=== PATIENT | female | born 1965 | race Hispanic/Latino ===

== ENCOUNTER 2019-10-07 06:50 | Emergency (ER) | payer OTHER, SELFPAY ==
[2019-10-07] MEDS ORDERED: FENTANYL CITR 100 MCG/2 ML ONE (07:38)
[2019-10-07 07:46] LABS: Absolute Lymphocytes (CBC) 1.7 K/uL (0.7-4.9); Basophils % 0.9 % (0-1.3); Hematocrit 41.5 % (36.0-45.0); Lymphocytes % 31.3 % (15.3-44.8); MPV 7.9 fL (7.6-11.3); RBC Red Blood Cell Count 4.84 M/uL (3.86-4.86)
[2019-10-07 07:50] LABS: Protime INR 1.02
[2019-10-07 07:59] LABS: ALT/SGPT 23 U/L (12-78); AST/SGOT 16 U/L (15-37); Albumin 3.6 g/dL (3.4-5.0); Alkaline Phosphatase 107 U/L (45-117); BUN Blood Urea Nitrogen 9 mg/dL (7-18); Bicarbonate 28 mmol/L (21-32); Bilirubin Direct < 0.1 mg/dL (0-0.2); Bilirubin Total 0.2 mg/dL (0.2-1.0); Glucose Level 95 mg/dL (74-106); Magnesium 2.3 mg/dL (1.8-2.4); NT PRO-BNP 58 pg/mL (<125); Potassium 4.1 mmol/L (3.5-5.1); Protein, Total 7.1 g/dL (6.4-8.2); Sodium Level 142 mmol/L (136-145); Troponin (Emerg Dept Use Only) < 0.02 ng/mL (0.0-0.045)
--- NOTE | 2019-10-07 08:41 | RAD REPORT ---
EXAM DESCRIPTION: CT - Chest For Pe Angio - 10/07/2019 8:21 am CLINICAL HISTORY: BLUNT CHEST TRAUMA, rib pain under the left breast COMPARISON: Abdomen Pelvis W Contrast dated 04/17/2017 TECHNIQUE: Dynamically enhanced 3 mm thick images of the chest were obtained during administration o f approximately 150mL Isovue 370 IV contrast. Coronal and oblique MIP reconstruction images were gene rated and reviewed. Exam utilizes a protocol to evaluate the pulmonary arterial tree. All CT scans are performed using dose optimization technique as appropriate and may include automated exposure control or mA/KV adjustment according to patient size. FINDINGS: No pulmonary emboli are identified. The aorta as imaged shows no acute or suspicious finding. No pericardial thickening or effusion. No infiltrate or mass in the lung parenchyma. No pleural effusion or pleural thickening. No mediastinal or hilar suspicious masses. No chest wall masses or abnormal axillary lymphadenopathy. Patient has prominent costochondral calcifications. There is a subtle buckling of the cortex of the l eft sixth rib at the costochondral junction. This is a change in contour from the March 2017 CT study. No fracture line is seen but this could be an acute or chronic rib injury. Correlation is needed with any focal symptoms. IMPRESSION: Suspected incomplete fracture of the anterior left sixth rib at the costochondral juncti on. Imaging shows subtle buckling of the cortex of this rib new from 2017. No other rib or chest wall finding identifiable. Pleura, parenchyma and mediastinal structures without acute finding. No other significant or suspicious findings.
--- NOTE | 2019-10-07 08:57 | ER ---
Nurse's Notes [facility] Name: Dahiana Palafox Age: 53 yrs Sex: Female : 1965 Arrival Date: 10/07/2019 Time: 06:53 Bed 5 Private MD: Diagnosis: Fracture of one rib, left side- 6th;Shortness of breath Presentation: 10/07 07:11 Presenting complaint: Patient states: pain under L breast that occurred during a democrat ss after her squeezed her. states that this has occurred before and was told her rib popped out of place, but it healed itself. This time the pain is not going away. Pain is worse when laughing, repositioning and deep breathing. Transition of care: patient was not received from another setting of care. Onset of symptoms was September 23, 2019. Risk Assessment: Do you want to hurt yourself or someone else? Patient reports no desire to harm self or others. Initial Sepsis Screen: Does the patient meet any 2 criteria? No. Patient's initial sepsis screen is negative. Does the patient have a suspected source of infection? No. Patient's initial sepsis screen is negative. Care prior to arrival: None. 07:11 Method Of Arrival: Ambulatory ss 07:11 Acuity: VIVIANA 3 ss Historical: - Allergies: 07:36 No Known Allergies; ss - PMHx: 07:00 acid reflux; gastric ulcers; Hyperlipidemia; Hypertension; ss - PSHx: 07:00 Hysterectomy; metal plate in head; ss - Immunization history:: Adult Immunizations up to date. - Social history:: Smoking status: Patient/guardian denies using tobacco. - Ebola Screening: : Patient denies exposure to infectious person Patient denies travel to an Ebola-affected area in the 21 days before illness onset. Screenin:18 Abuse screen: Denies threats or abuse. Denies injuries from another. Nutritional ss screening: No deficits noted. Tuberculosis screening: Never had TB. Fall Risk None identified. Assessment: 07:18 General: Appears uncomfortable, Behavior is calm, cooperative. Pain: Complains of pain ss in left lateral anterior chest Pain currently is 8 out of 10 on a pain scale. Quality of pain is described as tender, Pain began x 2 weeks Is continuous. Neuro: Level of Consciousness is awake, alert, obeys commands, Oriented to person, place, time, situation, Pupils are PERRLA. Cardiovascular: Capillary refill < 3 seconds is brisk in bilateral fingers Patient's skin is warm and dry. Rhythm is regular. Cardiovascular: Pulses are palpable in right radial artery and left radial artery Edema is absent. Respiratory: Reports cough that is pain with cough pain with movement pain with respiration Airway is patent Trachea midline Respiratory effort is even, unlabored, Respiratory pattern is regular, symmetrical, Breath sounds are clear bilaterally. Crepitus is absent. GI: Patient currently denies abdominal pain, diarrhea, nausea, vomiting. : No signs and/or symptoms were reported regarding the genitourinary system. EENT: Nares are clear Oral mucosa is moist. Throat is clear. Derm: Skin is intact, is healthy with good turgor, Skin is dry, Skin is pink, warm \T\ dry. normal. Musculoskeletal: Circulation, motion, and sensation intact. Range of motion: intact in all extremities, Swelling absent. 07:45 Reassessment: NAD, remains at bedside. Call light within reach. 08:06 Reassessment: labs have resulted. Awaiting CT to be obtained. Spoke with Althea library cataloging technician who reports she is on her way now to transport patient to have image obtained. Neuro: Level of Consciousness is awake, obeys commands. Respiratory: Airway is patent Respiratory effort is even, unlabored, Respiratory pattern is regular, symmetrical. 09:34 Reassessment: Patient appears in no apparent distress at this time. Patient is alert, ss oriented x 3, equal unlabored respirations, skin warm/dry/pink. Instructed patient and family on IS device use. Vital Signs: 07:10 BP 125 / 75; Pulse 86; Resp 16; Temp 97.7(TE); Pulse Ox 100% on R/A; Weight 63.05 kg; ss Height 5 ft. 2 in. (157.48 cm); Pain 8/10; 07:10 Body Mass Index 25.42 (63.05 kg, 157.48 cm) ED Course: 06:53 Patient arrived in ED. ds1 07:10 Arm band placed on right wrist. ss 07:11 Rupal Chacon FNP-C is PSYCHIATRICP. snw 07:11 Benjamin Serrano MD is Attending Physician. snw 07:16 Triage completed. ss 07:18 Val Muñiz, RN is Primary Nurse. ss 07:18 Patient has correct armband on for positive identification. Bed in low position. Call ss light in reach. 07:20 Pulse ox on. NIBP on. ss 07:20 Patient maintains SpO2 saturation greater than 95% on room air. ss 07:35 Inserted saline lock: 22 gauge in right antecubital area, using aseptic technique. ss Blood collected. 07:53 EKG done, by technician automated equipment. reviewed by Rupal DEJESUS. 3 08:22 CT Chest For PE Angio In Process Unspecified. EDMS 09:28 No provider procedures requiring assistance completed. IV discontinued, intact, ss bleeding controlled, No redness/swelling at site. Pressure dressing applied. Administered Medications: 07:45 Drug: fentaNYL (PF) 50 mcg Route: IVP; Site: right antecubital; ss 08:05 Follow up: Response: No adverse reaction; Pain is decreased; Pain is decreased, patient ss reports pain medication seems to have helped a little. 09:20 Drug: Valium 5 mg Route: PO; ss 09:26 Follow up: Response: No adverse reaction; Medication administered at discharge. ss 09:20 Drug: TORadol - Ketorolac 15 mg Route: IVP; Site: right antecubital; ss 09:27 Follow up: Response: No adverse reaction; Medication administered at discharge. Outcome: 08:56 Discharge ordered by MD. snw 09:28 Discharged to home ambulatory, with family. ss 09:28 Condition: good 09:28 Discharge instructions given to patient, family, Instructed on discharge instructions, follow up and referral plans. no driving heavy equipment, IS Demonstrated understanding of instructions, follow-up care, medications, Prescriptions given X 1. 09:34 Patient left the ED. Signatures: Dispatcher [employer] EDNC Rupal Chacon FNP-C ANGIO TECHNOLOGIST-Csnkatherine Betsey Sullivan ds1 Val Muñiz, NOEL RN Lilo Hawthorne 3 Corrections: (The following items were deleted from the chart) 07:26 07:11 Acuity: VIVIANA 4 ss ss 07:49 07:18 Respiratory: Airway is patent Trachea midline Respiratory effort is even, ss unlabored, Respiratory pattern is regular, symmetrical, Breath sounds are clear bilaterally. Crepitus is absent ss
--- NOTE | 2019-10-07 08:57 | EDPHYS ---
Physician Documentation [facility] Name: Dahiana Palafox Age: 53 yrs Sex: Female : 1965 Arrival Date: 10/07/2019 Time: 06:53 Bed 5 Private MD: ED Physician Benjamin Serrano HPI: 10/07 08:00 This 53 yrs old Female presents to ER via Ambulatory with complaints of snw Breathing Difficulty. 08:00 The patient has shortness of breath at rest. Onset: The symptoms/episode began/occurred snw suddenly, 4 day(s) ago, and became worse and became persistent. Duration: The symptoms are continuous, and are steadily getting worse. The patient's shortness of breath is aggravated by coughing, light activity, deep breath. Associated signs and symptoms: Pertinent positives: numbness in extremities, to left upper arm/shoulder. Severity of symptoms: At their worst the symptoms were moderate. The patient has not experienced similar symptoms in the past. The patient has not recently seen a physician. Pt states she felt and heard a pop under her left breast when Spouse gave her a "bear hug", + shortness of breath/pain since. + smoker. Historical: - Allergies: 07:36 No Known Allergies; ss - PMHx: 07:00 acid reflux; gastric ulcers; Hyperlipidemia; Hypertension; ss - PSHx: 07:00 Hysterectomy; metal plate in head; ss - Immunization history:: Adult Immunizations up to date. - Social history:: Smoking status: Patient/guardian denies using tobacco. - Ebola Screening: : Patient denies exposure to infectious person Patient denies travel to an Ebola-affected area in the 21 days before illness onset. ROS: 07:59 Constitutional: Negative for fever, chills, and weight loss, Eyes: Negative for injury, snw pain, redness, and discharge, ENT: Negative for injury, pain, and discharge, Neck: Negative for injury, pain, and swelling, Cardiovascular: Negative for chest pain, palpitations, and edema, Abdomen/GI: Negative for abdominal pain, nausea, vomiting, diarrhea, and constipation, Back: Negative for injury and pain, : Negative for injury, bleeding, discharge, and swelling, MS/Extremity: Negative for injury and deformity, Skin: Negative for injury, rash, and discoloration, Neuro: Negative for headache, weakness, numbness, tingling, and seizure. 07:59 Respiratory: Positive for pleurisy, of the under left breast, shortness of breath, at rest. Exam: 07:59 Constitutional: This is a well developed, well nourished patient who is awake, alert, snw and in no acute distress. Head/Face: Normocephalic, atraumatic. Eyes: Pupils equal round and reactive to light, extra-ocular motions intact. Lids and lashes normal. Conjunctiva and sclera are non-icteric and not injected. Cornea within normal limits. Periorbital areas with no swelling, redness, or edema. ENT: Nares patent. No nasal discharge, no septal abnormalities noted. Tympanic membranes are normal and external auditory canals are clear. Oropharynx with no redness, swelling, or masses, exudates, or evidence of obstruction, uvula midline. Mucous membranes moist. Neck: Trachea midline, no thyromegaly or masses palpated, and no cervical lymphadenopathy. Supple, full range of motion without nuchal rigidity, or vertebral point tenderness. No Meningismus. Cardiovascular: Regular rate and rhythm with a normal S1 and S2. No gallops, murmurs, or rubs. Normal PMI, no JVD. No pulse deficits. Respiratory: Lungs have equal breath sounds bilaterally, clear to auscultation and percussion. No rales, rhonchi or wheezes noted. No increased work of breathing, no retractions or nasal flaring. Abdomen/GI: Soft, non-tender, with normal bowel sounds. No distension or tympany. No guarding or rebound. No evidence of tenderness throughout. Back: No spinal tenderness. No costovertebral tenderness. Full range of motion. Skin: Warm, dry with normal turgor. Normal color with no rashes, no lesions, and no evidence of cellulitis. MS/ Extremity: Pulses equal, no cyanosis. Neurovascular intact. Full, normal range of motion. Neuro: Awake and alert, GCS 15, oriented to person, place, time, and situation. Cranial nerves II-XII grossly intact. Motor strength 5/5 in all extremities. Sensory grossly intact. Cerebellar exam normal. Normal gait. Psych: Awake, alert, with orientation to person, place and time. Behavior, mood, and affect are within normal limits. 07:59 Chest/axilla: Inspection: normal, Palpation: tenderness, that is moderate, of the left breast, that partially reproduces the patient's complaints. Vital Signs: 07:10 BP 125 / 75; Pulse 86; Resp 16; Temp 97.7(TE); Pulse Ox 100% on R/A; Weight 63.05 kg; ss Height 5 ft. 2 in. (157.48 cm); Pain 8/10; 07:10 Body Mass Index 25.42 (63.05 kg, 157.48 cm) ss MDM: 07:12 Patient medically screened. snw 08:59 Data reviewed: vital signs, nurses notes. Counseling: I had a detailed discussion with snw the patient and/or guardian regarding: the historical points, exam findings, and any diagnostic results supporting the discharge/admit diagnosis, lab results, radiology results, the need for outpatient follow up, to return to the emergency department if symptoms worsen or persist or if there are any questions or concerns that arise at home. 10/07 07:25 Order name: Basic Metabolic Panel; Complete Time: 08:02 snw 10/07 07:25 Order name: CBC with Diff; Complete Time: 07:51 snw 10/07 07:25 Order name: LFT's; Complete Time: 08:02 snw 10/07 07:25 Order name: Magnesium; Complete Time: 08:02 snw 10/07 07:25 Order name: NT PRO-BNP; Complete Time: 08:02 snw 10/07 07:25 Order name: PT-INR; Complete Time: 07:55 snw 10/07 07:25 Order name: Troponin (emerg Dept Use Only); Complete Time: 08:02 snw 10/07 07:25 Order name: EKG; Complete Time: 07:26 snw 10/07 07:25 Order name: Cardiac monitoring; Complete Time: 07:45 snw 10/07 07:25 Order name: CT Chest For PE Angio; Complete Time: 08:54 snw 10/07 08:55 Order name: INCENTIVE SPIROMETRY snw 10/07 07:25 Order name: EKG - Nurse/Tech; Complete Time: 07:45 snw 10/07 07:25 Order name: IV Saline Lock; Complete Time: 07:35 snw 10/07 07:25 Order name: Labs collected and sent; Complete Time: 07:35 snw 10/07 07:25 Order name: O2 Per Protocol; Complete Time: 07:35 snw 10/07 07:25 Order name: O2 Sat Monitoring; Complete Time: 07:35 snw Administered Medications: 07:45 Drug: fentaNYL (PF) 50 mcg Route: IVP; Site: right antecubital; ss 08:05 Follow up: Response: No adverse reaction; Pain is decreased; Pain is decreased, patient ss reports pain medication seems to have helped a little. 09:20 Drug: Valium 5 mg Route: PO; ss 09:26 Follow up: Response: No adverse reaction; Medication administered at discharge. ss 09:20 Drug: TORadol - Ketorolac 15 mg Route: IVP; Site: right antecubital; ss 09:27 Follow up: Response: No adverse reaction; Medication administered at discharge. ss Disposition: 10/07/19 08:56 Discharged to Home. Impression: Fracture of one rib, left side - 6th, Shortness of breath. - Condition is Stable. - Discharge Instructions: Rib Fracture, Shortness of Breath, Incentive Spirometer, Heat Therapy. - Prescriptions for Valium 2 mg Oral Tablet - take 1 tablet by ORAL route every 8 hours As needed; 10 tablet. - Medication Reconciliation Form, Thank You Letter, Antibiotic Education, Prescription Opioid Use, Work release form form. - Follow up: Private Physician; When: 2 - 3 days; Reason: Recheck today's complaints, Continuance of care, Re-evaluation by your physician. Follow up: Emergency Department; When: As needed; Reason: Worsening of condition. Signatures: Dispatcher [employer] EDRupal Samaniego, OLEG CHRISTIAN-Val Latif, RN RN ss Corrections: (The following items were deleted from the chart) 09:34 08:56 10/07/2019 08:56 Discharged to Home. Impression: Fracture of one rib, left side - ss 6th; Shortness of breath. Condition is Stable. Forms are Medication Reconciliation Form, Thank You Letter, Antibiotic Education, Prescription Opioid Use. Follow up: Private Physician; When: 2 - 3 days; Reason: Recheck today's complaints, Continuance of care, Re-evaluation by your physician. Follow up: Emergency Department; When: As needed; Reason: Worsening of condition. snw
[2019-10-07] MEDS ORDERED: KETOROLAC 30 MG/ML INJ ONE (09:16)
[2019-10-07] MEDS ORDERED: DIAZEPAM 5 MG TABLET ONE (09:16)
[2019-10-07 09:41] VITALS: BP 125/75; TEMP 97.7; O2SAT 100
--- NOTE | 2019-10-09 12:52 | EKG ---
Test Date: 2019-10-07 Test Time: 07:47:21 [employer] Transactions Attorney: NANCY MEASUREMENT RESULTS: Intervals: Rate: 75 IL: 136 QRSD: 78 QT: 394 QTc: 439 [place]: P: 63 IL: 136 QRS: 63 T: 60 INTERPRETIVE STATEMENTS: Normal sinus rhythm Normal ECG Compared to ECG 01/04/2018 19:51:40 No significant changes Electronically Signed On 10-09-19 12:46:00 PROGRAM MANAGEMENT PROFESSIONAL by Demian Pisano
== END 2019-10-07 09:34 | disposition home or self-care (01) ==
LOC: ER 06:50
DX: S22.32XA Fracture of one rib, left side, initial encounter for closed fracture (principal); I10 Essential (primary) hypertension; X58.XXXA Exposure to other specified factors, initial encounter; Y93.89 Activity, other specified; Y92.9 Unspecified place or not applicable
CPT/HCPCS: 36415; 71275; 80048; 80076; 83735; 83880; 84484; 85025; 85610; 93005; 96374; 96375; 99284; J3010; Q9967

== ENCOUNTER 2020-03-14 09:12 | Emergency (ER) | payer BC, SELFPAY ==
--- NOTE | 2020-03-14 11:11 | RAD REPORT ---
EXAM DESCRIPTION: RAD - Chest Single View - 03/14/2020 10:11 am CLINICAL HISTORY: cough, fall, chest pain COMPARISON: Two view chest December 2017, CT chest September 2019 TECHNIQUE: AP portable chest image was obtained 03/14/2020 10:11 am . FINDINGS: No pulmonary contusion, mass, infiltrate or focal lung parenchymal process. Interstitial m arkings are relatively prominent but not clearly different from comparison. Heart and vasculature are normal. No measurable pleural effusion and no pneumothorax. No displaced rib fracture is identifiabl e. No acute rib finding seen. Rib detail is limited on a single view examination. Left shoulder shows no suspicious finding. Clavicle is intact and normally position. No acute aortic findings suspected. IMPRESSION: No acute cardiopulmonary process. No rib deformity identifiable on this study. Rib detail is limited on a single-view portable exam. No significant changes are identifiable from prior imaging.
[2020-03-14] MEDS ORDERED: DIAZEPAM 5 MG TABLET ONE (11:43)
--- NOTE | 2020-03-14 11:53 | ER ---
Nurse's Notes [facility] Name: Dahiana Palafox Age: 54 yrs Sex: Female : 1965 Arrival Date: 03/14/2020 Time: 09:13 Bed 6 Private MD: Rosanna Reynoso Diagnosis: Chest Wall Strain;Acute Bronchitis Presentation: 03/14 09:23 Chief complaint: Patient states: Thursday she was on the trampoline with her son and he sv pulled her left arm and she felt a "pop" in her left chest wall area and has been having SOB. Pt also reports cough/congestion x 3.5 weeks. Denies fever/chills. Coronavirus screen: Surgical mask placed on patient. Patient moved to private room, placed in contact and droplet isolation with eye protection until further assessment. Patient reports a cough. Patient reports shortness of breath or difficulty breathing. Patient denies measured and/or subjective temperature greater than 100.4F prior to today's visit. Patient denies travel on a cruise ship or to a country the [facility] currently lists as an affected area. Patient denies contact with known and/or suspected case of COVID-19. Ebola Screen: No symptoms or risks identified at this time. Risk Assessment: Do you want to hurt yourself or someone else? Patient reports no desire to harm self or others. Onset of symptoms was March 11, 2020. Care prior to arrival: Medication(s) given: Aleve 2 tabs taken at 0700 today. 09:23 Method Of Arrival: Ambulatory sv 09:23 Acuity: VIVIANA 4 sv 09:57 Initial Sepsis Screen: Does the patient meet any 2 criteria? No. Patient's initial sv sepsis screen is negative. Does the patient have a suspected source of infection? No. Patient's initial sepsis screen is negative. Triage Assessment: 09:23 General: Appears in no apparent distress. uncomfortable, well developed, Behavior is sv calm, cooperative, appropriate for age. Pain: Complains of pain in anterior aspect of left upper chest Pain currently is 9 out of 10 on a pain scale. Pain began 2-3 days ago. Is intermittent. Neuro: Level of Consciousness is awake, alert, obeys commands, Oriented to person, place, time, situation, Moves all extremities. Full function Gait is steady. Respiratory: Airway is patent Respiratory effort is even, unlabored, Respiratory pattern is regular, symmetrical. Derm: Skin is pink, warm \\T\\ dry. PSYCHIATRIC RN: 09:28 LMP N/A - Hysterectomy sv Historical: - Allergies: 09: Codeine; sv - PMHx: : acid reflux; gastric ulcers; Hyperlipidemia; Hypertension; Thyroid problem; GERD; sv - PSHx: 09:26 Hysterectomy; metal plate in head; sv - Immunization history:: Adult Immunizations up to date. - Social history:: Smoking status: Patient reports the use of cigarette tobacco products, smokes one-half pack cigarettes per day, Patient/guardian denies using alcohol. Screenin:27 Abuse screen: Denies threats or abuse. Denies injuries from another. Nutritional sv screening: No deficits noted. Tuberculosis screening: No symptoms or risk factors identified. Fall Risk None identified. Assessment: 11:20 Reassessment: request something for pain, provider notified. em Vital Signs: 09:23 Weight 61.23 kg; Height 5 ft. 1 in. (154.94 cm); Pain 9/10; sv 09:31 BP 144 / 77; Pulse 86; Resp 20; Pulse Ox 98% ; sv 09:34 BP 144 / 77; Pulse 85; Resp 18; Temp 98.3(O); Pulse Ox 98% on R/A; Pain 9/10; em1 09:23 Body Mass Index 25.51 (61.23 kg, 154.94 cm) sv ED Course: 09:13 Patient arrived in ED. am2 09:14 Rosanna Reynoso is Private Physician. am2 09:15 Zuly Lorenzo, NOEL is Primary Nurse. sv 09:15 Clyde Swenson PA is PHCP. jmm 09:15 Sixto Matute MD is Attending Physician. jmm 09:26 Triage completed. sv 09:27 Arm band placed on Patient placed in an exam room, on a stretcher. sv 09:27 Patient has correct armband on for positive identification. Bed in low position. Call sv light in reach. Pulse ox on. NIBP on. Door closed. Head of bed elevated. 09:28 Patient maintains SpO2 saturation greater than 95% on room air. sv 09:50 Nurse Practitioner and/or Physician Emergency Medical Service Manager to see patient. sv 09:57 Awaiting for x-ray. sv 10:03 X-ray(s) taken. sv 10:06 Awaiting radiology results. sv 10:11 Chest Single View XRAY In Process Unspecified. EDMS 10:17 Primary Nurse role handed off by Zuly Lorenzo, NOEL 10:33 Kiara Moreira, RN is Primary Nurse. ph 11:49 Sling applied to left arm. em 11:51 Inocente Bernal MD is Referral Physician. [facility] 12:02 No provider procedures requiring assistance completed. Patient did not have IV access em during this emergency room visit. Administered Medications: 11:32 Not Given (allergy): [place] 5 mg-325 mg 1 tabs PO once; RASS on ADMIN: Combtv4, Very jmm Agttd3, Agttd2, Rstlss1, AlertClm0, Drwsy-1, Lt Sdtn-2, Mod Sdtn-3, Dp Sdtn-4, UnArsble-5 11:40 Drug: Valium 5 mg Route: PO; em 12:03 Follow up: Response: No adverse reaction em Outcome: 11:52 Discharge ordered by MD. [facility] 12:02 Discharged to home ambulatory. em 12:02 Condition: good 12:02 Discharge instructions given to patient, Instructed on discharge instructions, follow up and referral plans. medication usage, Demonstrated understanding of instructions, follow-up care, medications, Prescriptions given X 2. 12:03 Patient left the ED. em Signatures: Dispatcher [employer] EDMS Zuly Lorenzo RN RN Clyde Swenson PA PA jmm Munoz, Edgar RN NOEL Darrel Cortez em1 Kiara Moreira, NOEL RN [facility] [id number]
--- NOTE | 2020-03-14 11:53 | EDPHYS ---
Physician Documentation [facility] Name: Dahiana Palafox Age: 54 yrs Sex: Female : 1965 Arrival Date: 03/14/2020 Time: 09:13 Bed 6 Private MD: Rosanna Reynoso ED Physician Sixto Matute HPI: 03/14 10:28 This 54 yrs old Female presents to ER via Ambulatory with complaints of Chest jmm Pain - due to injury/pull. 10:28 The patient or guardian reports chest pain that is located primarily in the anterior [facility] chest wall, left. Onset: acutely, 3 day(s) ago. The pain does not radiate. Associated signs and symptoms: Pertinent positives: cough. The chest pain is described as sharp. This is a 54 year old female with a history of hlp, htn that presents to the ED with complaints of left sided chest pain beginning this past Thursday. Patient states her son pulled her arm while on the trampoline and the patient heard a pop. Patient states pain was minimal until this morning. Worsened with left arm movement. Patient also complains of 3 weeks of productive cough. Denies fever. had similar symptoms but tested negative for COVID-19. . 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 - Social history:: Smoking status: Patient reports the use of cigarette tobacco products, smokes one-half pack cigarettes per day, Patient/guardian denies using alcohol. ROS: 10:41 Constitutional: Negative for fever, chills, and weight loss. jmm 10:41 Cardiovascular: Positive for chest pain. 10:41 Respiratory: Positive for cough. 10:41 All other systems are negative. Exam: 10:41 Constitutional: This is a well developed, well nourished patient who is awake, alert, jmm and in no acute distress. Head/Face: atraumatic. Eyes: EOMI, no conjunctival erythema appreciated ENT: Moist Mucus Membranes Neck: Trachea midline, Supple 10:41 Cardiovascular: Regular rate and rhythm. No edema appreciated Respiratory: Normal respirations, no respiratory distress appreciated Abdomen/GI: Non distended, soft Back: Normal ROM Skin: General appearance color normal MS/ Extremity: Moves all extremities, no obvious deformities appreciated, no edema noted to the lower extremities Neuro: Awake and alert, normal gait Psych: Behavior is normal, Mood is normal, Patient is cooperative and pleasant 10:41 Chest/axilla: Inspection: normal, Palpation: tenderness, of the anterior aspect of left upper chest, that totally reproduces the patient's complaints. Vital Signs: 09:23 Weight 61.23 kg; Height 5 ft. 1 in. (154.94 cm); Pain 9/10; sv 09:31 BP 144 / 77; Pulse 86; Resp 20; Pulse Ox 98% ; sv 09:34 BP 144 / 77; Pulse 85; Resp 18; Temp 98.3(O); Pulse Ox 98% on R/A; Pain 9/10; em1 09:23 Body Mass Index 25.51 (61.23 kg, 154.94 cm) sv MDM: 09:24 Patient medically screened. [facility] 11:50 Data reviewed: vital signs, nurses notes. Counseling: I had a detailed discussion with [facility] the patient and/or guardian regarding: the historical points, exam findings, and any diagnostic results supporting the discharge/admit diagnosis, radiology results, the need for outpatient follow up, to return to the emergency department if symptoms worsen or persist or if there are any questions or concerns that arise at home. ED course: Most likely chest wall injury due to PE findings. CXR does not appear consistent with viral pneumonia. Patient advised to follow up with orthopedics for further evaluation. Patient understood and agrees with the plan of care. . 03/14 09:54 Order name: Chest Single View XRAY; Complete Time: 11:21 [facility] 03/14 11:33 Order name: Sling; Complete Time: 11:35 [facility] Administered Medications: 11:32 Not Given (allergy): [place] 5 mg-325 mg 1 tabs PO once; RASS on ADMIN: Combtv4, Very jmm Agttd3, Agttd2, Rstlss1, AlertClm0, Drwsy-1, Lt Sdtn-2, Mod Sdtn-3, Dp Sdtn-4, UnArsble-5 11:40 Drug: Valium 5 mg Route: PO; em 12:03 Follow up: Response: No adverse reaction em Disposition: 03/15 07:16 Co-signature as Attending Physician, Sixto Matute MD Available for consultation . ps1 Disposition: 03/14/20 11:52 Discharged to Home. Impression: Chest Wall Strain, Acute Bronchitis. - Condition is Stable. - Prescriptions for orphenadrine citrate 100 mg Oral Tablet Sustained Release - take 1 tablet by ORAL route 2 times per day As needed; 20 tablet. Albuterol Sulfate 90 mcg/actuation - inhale 1-2 puff by INHALATION route every 4-6 hours; 1 Inhaler. - Medication Reconciliation Form, Thank You Letter, Antibiotic Education, Prescription Opioid Use, Work release form form. - Follow up: Inocente Bernal MD; When: 2 - 3 days; Reason: Recheck today's complaints, Continuance of care, Re-evaluation by your physician. Signatures: Dispatcher [employer] Zuly Moreno RN RN sv Mickail, Joel, PA PA jmm Munoz, Edgar, RN RN em Singer, Phillip, MD MD ps1 Corrections: (The following items were deleted from the chart) 03/14 12:03 11:52 03/14/2020 11:52 Discharged to Home. Impression: Chest Wall Strain; Acute em Bronchitis. Condition is Stable. Forms are Medication Reconciliation Form, Thank You Letter, Antibiotic Education, Prescription Opioid Use. Follow up: Inocente Bernal; When: 2 - 3 days; Reason: Recheck today's complaints, Continuance of care, Re-evaluation by your physician. jose
[2020-03-14 12:25] VITALS: BP 144/77; O2SAT 98
[2020-03-14 12:27] VITALS: TEMP 98.3
== END 2020-03-14 12:03 | disposition home or self-care (01) ==
LOC: ER 09:12
DX: S29.011A Strain of muscle and tendon of front wall of thorax, initial encounter (principal); X58.XXXA Exposure to other specified factors, initial encounter; J20.9 Acute bronchitis, unspecified; F17.210 Nicotine dependence, cigarettes, uncomplicated
CPT/HCPCS: 71045; 99284

== ENCOUNTER 2020-07-26 02:34 | Observation (INO) | payer BC ==
[2020-07-26] MEDS ORDERED: NA CHLORIDE 0.9% 1,000 ML ONE ×2 (03:01→05:56)
[2020-07-26] MEDS ORDERED: ONDANSETRON 4 MG/2 ML VIAL ONE (03:15)
[2020-07-26] MEDS ORDERED: FAMOTIDINE 20 MG/2 ML VIAL IV ONE (03:15)
[2020-07-26] MEDS ORDERED: MORPHINE 4 MG/ML SYR ONE ×2 (03:15→06:18)
[2020-07-26 03:47] LABS: Absolute Lymphocytes (CBC) 2.7 K/uL (0.7-4.9); Basophils % 0.4 % (0-1.3); Hematocrit 42.5 % (36.0-45.0); Lymphocytes % 33.4 % (15.3-44.8); MPV 8.2 fL (7.6-11.3); RBC Red Blood Cell Count 5.02 M/uL (3.86-4.86)
[2020-07-26 03:58] LABS: ALT/SGPT 37 U/L (12-78); AST/SGOT 42 U/L (15-37); Albumin 3.8 g/dL (3.4-5.0); Alkaline Phosphatase 137 U/L (45-117); BUN Blood Urea Nitrogen 11 mg/dL (7-18); Bicarbonate 25 mmol/L (21-32); Bilirubin Direct < 0.1 mg/dL (0-0.2); Bilirubin Total 0.2 mg/dL (0.2-1.0); Glucose Level 108 mg/dL (74-106); Lipase 219 U/L (73-393); Potassium 3.6 mmol/L (3.5-5.1); Sodium Level 140 mmol/L (136-145)
[2020-07-26] MEDS ORDERED: PIPER/TAZO/NS 3.375gm 3.375 GM/100 ML BAG ONE (05:56)
[2020-07-26 06:04] LABS: Urine Blood TRACE (NEG); Urine Glucose NEGATIVE (NEG); Urine Protein NEGATIVE (NEG)
--- NOTE | 2020-07-26 06:15 | ER ---
Nurse's Notes [facility] Name: Dahiana Palafox Age: 54 yrs Sex: Female : 1965 Arrival Date: 07/26/2020 Time: 02:38 Bed 18 Private MD: Diagnosis: Acute Cholecystitis Presentation: 07/26 02:38 Chief complaint: EMS states: SUDDEN ONSET OF ABDOMINAL PAIN DESCRIBED SHARP AND rv BURNING, RADIATING TO BOTH ARMS. DENIES NAUSEA/VOMITING/DIARRHEA/CONSTIPATION. NORMAL MOVEMENT EARLIER TODAY. Coronavirus screen: Client denies travel out of the [place] in the last 14 days. At this time, the client does not indicate any symptoms associated with coronavirus-19. Ebola Screen: No symptoms or risks identified at this time. Initial Sepsis Screen: Does the patient meet any 2 criteria? No. Patient's initial sepsis screen is negative. Does the patient have a suspected source of infection? Yes: Acute abdominal pain. Risk Assessment: Do you want to hurt yourself or someone else? Patient reports no desire to harm self or others. Onset of symptoms was July 26, 2020 at 01:00. 02:38 Method Of Arrival: EMS: [facility] rv 02:38 Acuity: VIVIANA 3 rv Triage Assessment: 02:41 General: Appears uncomfortable, Behavior is crying. Pain: Complains of pain in abdomen rv Pain radiates to right arm and left arm Pain currently is 10 out of 10 on a pain scale. Pain began suddenly, 1 hour ago. EENT: No signs and/or symptoms were reported regarding the EENT system. Neuro: Level of Consciousness is awake, alert, obeys commands, Oriented to person, place, time, situation. Cardiovascular: Patient's skin is warm and dry. Respiratory: Airway is patent Respiratory effort is even, unlabored, Respiratory pattern is regular, symmetrical. GI: Reports lower abdominal pain, upper abdominal pain, Patient currently denies constipation, diarrhea, nausea, vomiting. Derm: Skin is healthy with good turgor. 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 - Social history:: Smoking status: Patient reports the use of cigarette tobacco products, smokes one pack cigarettes per day. Screenin:42 Abuse screen: Denies threats or abuse. Denies injuries from another. Nutritional rv screening: No deficits noted. Tuberculosis screening: No symptoms or risk factors identified. Fall Risk None identified. Assessment: 05:23 Reassessment: Patient states feeling better. Patient states symptoms have improved. rv Neuro: Level of Consciousness is awake, alert, obeys commands, Oriented to person, place, time, situation. Respiratory: Airway is patent. 06:12 Reassessment: DR WILLOUGHBY EXPLAINED TO THE PATIENT THE RESULT OF THE CT SCAN. PATIENT IS rv FOR EVALUATION OF SURGEON FOR POSSIBLE SURGERY. PATIENT UNDERSTOOD. UPDATED. 07:10 Reassessment: Patient appears in no apparent distress at this time. Patient and/or sv family updated on plan of care and expected duration. Pain level reassessed. Patient is alert, oriented x 3, equal unlabored respirations, skin warm/dry/pink. Patient states feeling better. Patient states symptoms have improved. 07:40 Reassessment: Attempted to call report, nurse to call back. sv Vital Signs: 02:38 BP 160 / 81; Pulse 92; Resp 18; Temp 98.6; Pulse Ox 100% ; Weight 62.6 kg; Height 5 ft. rv 1 in. (154.94 cm); Pain 10/10; 03:30 BP 131 / 66; Pulse 86; Resp 16; Pulse Ox 100% ; Pain 5/10; rv 04:00 BP 127 / 64; Pulse 81; Resp 17; Pulse Ox 100% ; rv 04:17 Pain 5/10; rv 05:23 BP 120 / 56; Pulse 89; Resp 18; Pulse Ox 100% on R/A; rv 06:11 BP 123 / 58; Pulse 94; Resp 17; Pulse Ox 100% on R/A; Pain 7/10; rv 07:41 BP 126 / 62; Pulse 79; Resp 17; Pulse Ox 96% ; sv 02:38 Body Mass Index 26.07 (62.60 kg, 154.94 cm) rv ED Course: 02:38 Patient arrived in ED. rv 02:39 Jeremiah Willoughby MD is Attending Physician. [facility] 02:41 Triage completed. rv 02:42 Arm band placed on right wrist. Patient placed in the treatment room, on a stretcher, rv Patient notified of wait time. 02:43 Patient has correct armband on for positive identification. Pulse ox on. NIBP on. rv 02:54 Pedrito Davila RN is Primary Nurse. rv 02:55 Inserted saline lock: 20 gauge in right forearm, using aseptic technique. ,using rv aseptic technique. BY MONA SAHU Blood collected. 03:45 Inserted saline lock: 22 gauge in left forearm, using aseptic technique. IV ds4 discontinued, intact, bleeding controlled, No redness/swelling at site. Pressure dressing applied, IV removed due to PT request, new IV placed. 03:51 CT Abd/Pelvis - IV Contrast Only In Process Unspecified. EDMS 06:14 Chalino Flanagan MD is Hospitalizing Provider. [facility] 07:14 Primary Nurse role handed off by Pedrito Davila, NOEL sv 07:14 Zuly Lorenzo RN is Primary Nurse. sv 07:47 No provider procedures requiring assistance completed. Patient admitted, IV remains in sv place. intact. Administered Medications: 03:00 Drug: morphine 4 mg Route: IVP; Site: right forearm; rv 04:17 Follow up: Pain 5/10 Adult; Response: No adverse reaction; Marked relief of symptoms; rv Pain is decreased; RASS: Alert and Calm (0) 03:00 Drug: NS 0.9% 1000 ml Route: IV; Rate: 1000 ml; Site: right forearm; rv 04:22 Follow up: IV Status: Completed infusion; IV Intake: 1000ml rv 03:01 Drug: Zofran (Ondansetron) 4 mg Route: IVP; Site: right forearm; rv 04:17 Follow up: Response: No adverse reaction rv 03:03 Drug: Pepcid 20 mg Route: IVP; Site: right forearm; rv 04:17 Follow up: Response: No adverse reaction rv 05:50 Drug: Zosyn 3.375 grams Route: IVPB; Infused Over: 60 mins; Site: left forearm; rv 07:10 Follow up: Response: No adverse reaction; IV Status: Completed infusion; IV Intake: sv 100ml 06:12 Drug: morphine 4 mg Route: IVP; Site: left forearm; rv 07:10 Follow up: Response: No adverse reaction; Marked relief of symptoms; Pain is decreased; sv RASS: Alert and Calm (0) Intake: 04:22 IV: 1000ml; Total: 1000ml. rv 07:10 IV: 100ml; Total: 1100ml. sv Outcome: 06:15 Decision to Hospitalize by Provider. Anahi 07:53 Admitted to Med/surg accompanied by tech, via wheelchair, room 223, with chart, Report sv called to Nirmala COHEN 07:53 Condition: stable 07:53 Instructed on the need for admit. 08:04 Patient left the ED. sv Signatures: Dispatcher [employer] Zuly Moreno, RN RN Florentin Downing ds4 Pedrito Davila RN RN rv Jeremiah Willoughby MD MD 7
--- NOTE | 2020-07-26 06:15 | EDPHYS ---
Physician Documentation [facility] Name: Dahiana Palafox Age: 54 yrs Sex: Female : 1965 Arrival Date: 07/26/2020 Time: 02:38 Bed 18 Private MD: ED Physician Jeremiah Willoughby HPI: 07/26 02:56 This 54 yrs old Female presents to ER via EMS with complaints of Abdominal mh7 Pain. 02:56 The patient presents with abdominal pain in the epigastric area. Onset: The mh7 symptoms/episode began/occurred today. The symptoms do not radiate. Associated signs and symptoms: Pertinent negatives: nausea, vomiting, and diarrhea, nausea and vomiting, anorexia, blood in stools, chest pain, constipation, diarrhea, dysuria, fever, headache, hematuria, nausea, palpitations, shortness of breath, vaginal discharge, vomiting, vomiting blood. The symptoms are described as intermittent, vague, waxing/waning. Modifying factors: The symptoms are alleviated by nothing, the symptoms are aggravated by food. Severity of pain: At its worst the pain was moderate today, in the emergency department the pain is unchanged. 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 - Social history:: Smoking status: Patient reports the use of cigarette tobacco products, smokes one pack cigarettes per day. ROS: 02:56 Constitutional: Negative for fever, chills, and weight loss, Eyes: Negative for injury, mh7 pain, redness, and discharge, ENT: Negative for injury, pain, and discharge, Neck: Negative for injury, pain, and swelling, Cardiovascular: Negative for chest pain, palpitations, and edema, Respiratory: Negative for shortness of breath, cough, wheezing, and pleuritic chest pain, Back: Negative for injury and pain, : Negative for injury, bleeding, discharge, and swelling, MS/Extremity: Negative for injury and deformity, Skin: Negative for injury, rash, and discoloration, Neuro: Negative for headache, weakness, numbness, tingling, and seizure, Psych: Negative for depression, anxiety, suicide ideation, homicidal ideation, and hallucinations, Allergy/Immunology: Negative for hives, rash, and allergies, Endocrine: Negative for neck swelling, polydipsia, polyuria, polyphagia, and marked weight changes, Hematologic/Lymphatic: Negative for swollen nodes, abnormal bleeding, and unusual bruising. Exam: 02:58 Head/Face: Normocephalic, atraumatic. Eyes: Pupils equal round and reactive to light, mh7 extra-ocular motions intact. Lids and lashes normal. Conjunctiva and sclera are non-icteric and not injected. Cornea within normal limits. Periorbital areas with no swelling, redness, or edema. Neck: Trachea midline, no thyromegaly or masses palpated, and no cervical lymphadenopathy. Supple, full range of motion without nuchal rigidity, or vertebral point tenderness. No Meningismus. Chest/axilla: Normal chest wall appearance and motion. Nontender with no deformity. No lesions are appreciated. Cardiovascular: Regular rate and rhythm with a normal S1 and S2. No gallops, murmurs, or rubs. Normal PMI, no JVD. No pulse deficits. Respiratory: Lungs have equal breath sounds bilaterally, clear to auscultation and percussion. No rales, rhonchi or wheezes noted. No increased work of breathing, no retractions or nasal flaring. 02:58 Back: No spinal tenderness. No costovertebral tenderness. Full range of motion. Skin: Warm, dry with normal turgor. Normal color with no rashes, no lesions, and no evidence of cellulitis. MS/ Extremity: Pulses equal, no cyanosis. Neurovascular intact. Full, normal range of motion. Neuro: Awake and alert, GCS 15, oriented to person, place, time, and situation. Cranial nerves II-XII grossly intact. Motor strength 5/5 in all extremities. Sensory grossly intact. Cerebellar exam normal. Normal gait. Psych: Awake, alert, with orientation to person, place and time. Behavior, mood, and affect are within normal limits. 02:58 Constitutional: The patient appears in no acute distress, alert, awake, uncomfortable. 02:58 Abdomen/GI: Inspection: abdomen appears normal, Bowel sounds: normal, in all quadrants, Palpation: moderate abdominal tenderness, in the epigastric area, Rectal exam: the exam is deferred, because of patient request, Indicators: McBurney's point is not tender, Spaulding's sign is negative, Rovsing's sign is negative, Obturator sign is negative, Psoas sign is negative, Liver: no appreciated palpable abnormalities, Hernia: not appreciated. 06:56 ECG was reviewed by the Attending Physician. 7 Vital Signs: 02:38 BP 160 / 81; Pulse 92; Resp 18; Temp 98.6; Pulse Ox 100% ; Weight 62.6 kg; Height 5 ft. rv 1 in. (154.94 cm); Pain 10/10; 03:30 BP 131 / 66; Pulse 86; Resp 16; Pulse Ox 100% ; Pain 5/10; rv 04:00 BP 127 / 64; Pulse 81; Resp 17; Pulse Ox 100% ; rv 04:17 Pain 5/10; rv 05:23 BP 120 / 56; Pulse 89; Resp 18; Pulse Ox 100% on R/A; rv 06:11 BP 123 / 58; Pulse 94; Resp 17; Pulse Ox 100% on R/A; Pain 7/10; rv 07:41 BP 126 / 62; Pulse 79; Resp 17; Pulse Ox 96% ; sv 02:38 Body Mass Index 26.07 (62.60 kg, 154.94 cm) rv MDM: 02:52 Patient medically screened. [facility] 06:11 Differential diagnosis: bowel obstruction, cholecystitis, Cholelithiasis, mh7 diverticulitis, gastritis, gastroesophageal reflux disease, non-specific abd pain, pancreatitis, Peptic Ulcer Disease, Perf. Duodenal Ulcer, Perf. Gastric Ulcer, Pyelonephritis, Ureterolithiasis, urinary tract infection. Data reviewed: vital signs, nurses notes, lab test result(s), CBC, electrolytes, urinalysis, EKG, radiologic studies, CT scan. Data interpreted: Pulse oximetry: on room air is 100 %. Interpretation: normal. Counseling: I had a detailed discussion with the patient and/or guardian regarding: the historical points, exam findings, and any diagnostic results supporting the discharge/admit diagnosis, lab results, radiology results, the need for further work-up and treatment in the hospital. Response to treatment: the patient's symptoms have markedly improved after treatment. Physician consultation: Osbaldo Barrera MD regarding patient's condition, and will see patient in inpatient room, would like admission per Dr. Chalino Flanagan MD. 07/26 02:54 Order name: Basic Metabolic Panel [facility] 07/26 02:54 Order name: CBC with Diff; Complete Time: 04:21 [facility] 07/26 02:54 Order name: Hepatic Function [facility] 07/26 02:54 Order name: Lipase; Complete Time: 04:21 [facility] 07/26 02:55 Order name: Basic Metabolic Panel; Complete Time: 04:21 [facility] 07/26 02:55 Order name: Liver (Hepatic) Function; Complete Time: 04:21 [facility] 07/26 02:54 Order name: CT Abd/Pelvis - IV Contrast Only [facility] 07/26 04:52 Order name: CREATININE WHOLE BLOOD; Complete Time: 05:35 [facility] 07/26 05:31 Order name: Urine Dipstick--Ancillary (enter results); Complete Time: 06:08 [facility] 07/26 02:54 Order name: IV Saline Lock; Complete Time: 02:55 [facility] 07/26 02:54 Order name: Labs collected and sent; Complete Time: 02:55 [facility] 07/26 02:54 Order name: EKG - Nurse/Tech; Complete Time: 02:55 [facility] 07/26 02:54 Order name: Urine Dipstick-Ancillary (obtain specimen); Complete Time: 05:01 [facility] 07/26 07:20 Order name: CONS Physician Consult [facility] EC:56 Rate is 77 beats/min. Rhythm is regular, Normal Sinus Rhythm. QRS Desmet is Normal. CO mh7 interval is normal. QRS interval is normal. QT interval is normal. No Q waves. T waves are Normal. No ST changes noted. Clinical impression: Normal ECG. Administered Medications: 03:00 Drug: morphine 4 mg Route: IVP; Site: right forearm; rv 04:17 Follow up: Pain 5/10 Adult; Response: No adverse reaction; Marked relief of symptoms; rv Pain is decreased; RASS: Alert and Calm (0) 03:00 Drug: NS 0.9% 1000 ml Route: IV; Rate: 1000 ml; Site: right forearm; rv 04:22 Follow up: IV Status: Completed infusion; IV Intake: 1000ml rv 03:01 Drug: Zofran (Ondansetron) 4 mg Route: IVP; Site: right forearm; rv 04:17 Follow up: Response: No adverse reaction rv 03:03 Drug: Pepcid 20 mg Route: IVP; Site: right forearm; rv 04:17 Follow up: Response: No adverse reaction rv 05:50 Drug: Zosyn 3.375 grams Route: IVPB; Infused Over: 60 mins; Site: left forearm; rv 07:10 Follow up: Response: No adverse reaction; IV Status: Completed infusion; IV Intake: sv 100ml 06:12 Drug: morphine 4 mg Route: IVP; Site: left forearm; rv 07:10 Follow up: Response: No adverse reaction; Marked relief of symptoms; Pain is decreased; sv RASS: Alert and Calm (0) Disposition: 07/26/20 06:15 Hospitalization ordered by Chalino Flanagan for Inpatient Admission. Preliminary diagnosis is Acute Cholecystitis. - Bed requested for Telemetry/MedSurg (Inpatient). - Status is Inpatient Admission. sv - Condition is Stable. - Problem is new. - Symptoms have improved. Signatures: Dispatcher [employer] EDZuly Donohue RN RN sv Woody, Diana, RN RN dw Vicente, Ronaldo, RN RN Jeremiah Chopra MD MD mh7 Corrections: (The following items were deleted from the chart) 07:39 06:15 Hospitalization Ordered by Chalino Flanagan MD for Inpatient Admission. Preliminary diagnosis is Acute Cholecystitis. Bed requested for Telemetry/MedSurg (Inpatient). Status is Inpatient Admission. Condition is Stable. Problem is new. Symptoms have improved. mh7 08:04 07:39 07/26/2020 06:15 Hospitalization Ordered by Chalino Flanagan MD for Inpatient sv Admission. Preliminary diagnosis is Acute Cholecystitis. Bed requested for Telemetry/MedSurg (Inpatient). Status is Inpatient Admission. Condition is Stable. Problem is new. Symptoms have improved. dw
--- NOTE | 2020-07-26 07:39 | P.HP ---
Certification for Inpatient Patient admitted to: Observation With expected LOS: <2 Midnights Patient will require the following post-hospital care: None Practitioner: I am a practitioner with admitting privileges, knowledge of patient current condition, hospital course, and medical plan of care. Services: Services provided to patient in accordance with Admission requirements found in Title 42 Section 412.3 of the Code of Federal Regulations Patient History Date of Service: 07/26/20 Reason for admission: abdominal pain, acute cholecystitis History of Present Illness: 54yo Female with PMH: HTN, hypothyroid, HLD, GERD, who presents to ED due to severe RUQ/Epigastric abdominal pain that occurred around 1am this morning. She had a milder episode ~1 week ago that resolved quickly on its own. This time, the pain was more severe (10/10) sharp burning in nature and did not resolve. She reported mild nausea associated with this, no vomiting. Her pain does radiate somewhat to her left side / chest when it gets severe. Several of her family members (sister/mother) have had their gallbladders removed. She also endorses some chills intermittently since this morning. Otherwise she reports no SOB, chest pain, vision changes, no difficulty urinating, no diarrhea, no new rashes/lesions, no weakness. In the ED, she was noted to be uncomfortable, labwork notable for elevated alk phos, no leukocytosis or hyperbilirubinemia. CT abdomen: slight gallbladder wall thickening, +gallstone and sludge, concerning for acute cholecystitis. ED spoke with general surgery, Dr. Barrera. She was started on IV Zosyn and will be brought in for further management. Allergies No Known Allergies Allergy (Unverified 03/11/15 17:53) Home medications list reviewed: Yes - Past Medical/Surgical History Diabetic: No -: HTN -: Hypothyroid -: HLD -: GERD -: Total Hysterectomy - Family History Mother Notes: required gallbladder to be removed - Social History Smoking Status: Current every day smoker Counseled patient to stop smoking for: less than 10 minutes Smoking therapy provided: Yes Place of Residence: Home Review of Systems General: Chills Eyes: Unremarkable ENT: Unremarkable Respiratory: Unremarkable Cardiovascular: Unremarkable Gastrointestinal: Nausea, Abdominal Pain, No Distention, As per HPI Genitourinary: Unremarkable Musculoskeletal: As per HPI (brief, intermittent abdominal/chest pain) Integumentary: Unremarkable Neurological: Unremarkable Physical Examination - Physical Exam General: Alert, In no apparent distress, Oriented x3 HEENT: Mucous membr. moist/pink, Sclerae nonicteric Neck: Supple, JVD not distended Respiratory: Clear to auscultation bilaterally, Normal air movement Cardiovascular: No edema, Regular rate/rhythm, Normal S1 S2 Capillary refill: <2 Seconds Gastrointestinal: Tenderness (mild in RUQ, moderate-severe in epigastric region) Musculoskeletal: No erythema, No tenderness Integumentary: No rashes Neurological: Normal speech, Normal strength at 5/5 x4 extr, Normal affect - Studies Laboratory Data (last 24 hrs) 07/26/20 02:55: WBC 8.1, Hgb 14.5, Hct 42.5, Plt Count 266 07/26/20 02:55: Sodium 140, Potassium 3.6, BUN 11, Creatinine 0.65, Glucose 108 H, Total Bilirubin 0.2, AST 42 H, ALT 37, Alkaline Phosphatase 137 H, Lipase 219 Assessment and Plan - Plan Severe Abdominal Pain due to likely acute cholecystitis HTN Hypothyroid GERD HLD Severe Abdominal Pain due to likely acute cholecystitis -CT concerning for acute flaco, surgery consulted in ED -NPO, mIVF for now -continue IV zosyn -does not appear to be septic at this time -pain on my exam (after receiving pain medication) had more pain in epigastrium, pt with GERD, only rarely takes advil, does take daily aspirin, but reported pain did not improve with carafate HTN -monitor closely, continue home lisinopril 10mg when taking PO Hypothyroid -continue home levothyroxine 75 when taking PO GERD -as noted above -IV protonix while NPO Nicotine dependence -briefly counselled on tobacco cessation -nicotine patch ordered HLD -can continue home med when taking PO Discharge Plan: Home Plan to discharge in: 48 Hours - Advance Directives Does patient have a Living Will: No Does patient have a Durable POA for Healthcare: No - Code Status/Comfort Care Code Status Assessed: Yes Code Status: Full Code Time Spent Managing Pts Care (In Minutes): 55
[2020-07-26] MEDS: NA CHLORIDE 0.9% 1,000 ML IV SCH ×2 (08:00→14:03)
[2020-07-26] MEDS ORDERED: SODIUM CHLORIDE 0.9% 10ML INJ IV PRN (08:49)
[2020-07-26] MEDS: MORPHINE 4 MG/ML SYR IV PRN ×2 (08:54→14:03)
[2020-07-26] MEDS: ONDANSETRON 4 MG/2 ML VIAL IV PRN ×2 (08:54→16:08)
[2020-07-26] MEDS ORDERED: PANTOPRAZOLE 40 MG INJ IVP SCH (09:00)
[2020-07-26] MEDS ORDERED: NICOTINE 21 MG/PAT TD SCH (09:00)
[2020-07-26 09:56] LABS: Protime INR 1.03
[2020-07-26 10:41] VITALS: O2SAT 98; BMI 26.2
[2020-07-26] MEDS: PIPER/TAZO/NS 3.375gm 3.375 GM/100 ML BAG IVPB SCH ×2 (11:00→16:11)
--- NOTE | 2020-07-26 11:55 | CON ---
Date of Consultation: 07/26/2020 Brief History Of Present Illness: The patient is a 54-year-old female who presents to hospital with past medical history of hypertension, hypothyroidism, hyperlipidemia, and severe GERD, who stopped ta casey her acid suppression approximately a week ago because it is ordered by mail in a logistical issu es to prevent her from getting her medication, who developed epigastric abdominal pain with radiation through to her back and up into her lower chest slightly but is now predominantly in the epigastric area with some radiation down. She states that this felt like an episode of GERD she had before in t he past. She took some Carafate and it may give her some symptomatic improvement, however, it recurr ed several hours later. She states it was sharp and burning in nature and did not resolve, associate d with some mild nausea. No vomiting. She says she has intermittent chills. Otherwise, no other co mplaints. No vision changes, shortness of breath, syncope. No recent contacts. No new food exposur es. No recent travel. Past Medical History: Significant for hypertension, hypothyroidism, hyperlipidemia, severe GERD by h er description. Past Surgical History: She has had a total abdominal hysterectomy. Social History: She smokes cigarettes every day. She denies alcohol or recreational drug use of any kind. Review of Systems: Ten-point review of systems other than HPI, denies. Physically, she states she feels much better. Physical Examination: HEENT: She is normocephalic. Her sclerae were anicteric. Mucous membranes are moist. Oropharynx i s clear. Neck: Supple. No JVD. Chest: Normal expansion, excursion. Cardiovascular: Regular rate and rhythm. Pulmonary: Clear to auscultation bilaterally. Abdomen: Soft with mild epigastric tenderness to palpation. Negative Spaulding sign. No rebound. No guarding. No focal peritonitis. Extremities: No clubbing, cyanosis, or edema. Skin: Warm and dry. Laboratory Data: Reveals white blood cell count of 8.1, hemoglobin is 14.5, hematocrit of 42.5, plat elet count is 266, neutrophils are 56.6. Her PT 12.1, INR 1.03, PTT is 31.1. Her sodium 140, potass ium 3.6, chloride 109, carbon dioxide is 25, BUN 11, creatinine 0.6, glucose was 108. Her total bili ritchie 0.2, direct component 0.1, AST is 42, ALT 37, alkaline phosphatase 137, lipase is 219. UA show ed trace blood only. She had imaging performed, which included a CT abdomen and pelvis, which was of ficially read as distended gallbladder with small stones present, suggestive of minimal gallbladder w all enhancement may be secondary to cholecystitis. Colonic diverticulosis. Assessment And Plan: This is a 54-year-old female who comes in with signs and symptoms of epigastric abdominal pain, gastroesophageal reflux disease type symptoms, however, cannot rule out acute cholec ystitis, although her clinical picture is not classic. Therefore, I recommend a HIDA scan prior to a ny surgical intervention. Continue n.p.o., IV fluids, antibiotic coverage and start PPI treatment to see if this gives her symptomatic improvement. If she is able to tolerate her clear liquid diet and get significant symptomatic improvement, I still recommend HIDA scan to better evaluate the gallblad deidra to see if she requires a cholecystectomy or if she has evidence of acute cholecystitis. I have e xplained the risks, benefits, and alternatives of the above stated plan. The patient agrees to proceed as indicated. JACKELYN/MADELINE Voice ID: [id number] Report ID: [id number]
--- NOTE | 2020-07-26 12:41 | RAD REPORT ---
EXAM DESCRIPTION: CT - Abdomen Pelvis W Contrast - 07/26/2020 6:55 am CLINICAL HISTORY: The patient is 54 years old and is Female; ABD PAIN TECHNIQUE: Axial computed tomography images of the abdomen and pelvis with intravenous contrast. S agittal and coronal reformatted images were created and reviewed. This CT exam was performed using one or more of the following dose reduction techniques: automated exposure control, adjustment of t he mA and/or kV according to patient size, and/or use of iterative reconstruction technique. COMPARISON: No relevant prior studies available. FINDINGS: LUNG BASES: Unremarkable. No mass. No consolidation. ABDOMEN: LIVER: Unremarkable. No mass. GALLBLADDER AND BILE DUCTS: The gallbladder is distended. Suggestion of mild gallbladder wall en hancement is noted. PANCREAS: No ductal dilation. No mass. SPLEEN: Unremarkable. ADRENALS: Unremarkable. No mass. KIDNEYS AND URETERS: Unremarkable. The kidneys enhance symmetrically. No obstructing renal or ur eteral calculus is seen. No hydronephrosis or hydroureter. No perinephric fluid or stranding. STOMACH AND BOWEL: The stomach is minimally distended with food contents. Duodenal diverticulum is present proximally. There is no surrounding inflammation. The small bowel is otherwise normal in a ppearance. Stool is present throughout colon. Scattered colonic diverticula are noted without surroun ding inflammation. There is no bowel obstruction. PELVIS: APPENDIX: The appendix is normal in caliber without surrounding inflammation. BLADDER: The bladder is not well distended. REPRODUCTIVE: The patient is status post hysterectomy. ABDOMEN and PELVIS: INTRAPERITONEAL SPACE: Unremarkable. No free air. No significant fluid collection. BONES/JOINTS: No acute fracture. SOFT TISSUES: The soft tissues are normal. VASCULATURE: Atherosclerosis of the vasculature is present. The vessels are normal in caliber. No abdominal aortic aneurysm. LYMPH NODES: Unremarkable. No enlarged lymph nodes. IMPRESSION: 1. Distended gallbladder with small gallstones present. Suggestion of minimal gallblad deidra wall enhancement. Findings may be secondary to acute cholecystitis. 2. Colonic diverticulosis. Electronically signed by: Bri Amato MD 07/26/2020 4:04 AM CDT Due to temporary technical issues with the PACS/Fluency reporting system, reports are being signed by the in house radiologist without review as a courtesy to ensure prompt reporting. The interpreting r adiologist is fully responsible for the content of the report.
[2020-07-26 14:46] VITALS: BP 117/70; TEMP 97.5
== END 2020-07-26 16:46 | disposition home or self-care (01) ==
LOC: ER 02:34 → ERHOLD 07:18 → 2ND 07:54
PROVIDERS: ADMIT Hospitalist; ATTEND Hospitalist
DX: K81.0 Acute cholecystitis (principal); I10 Essential (primary) hypertension; E03.9 Hypothyroidism, unspecified; K21.9 Gastro-esophageal reflux disease without esophagitis; E78.5 Hyperlipidemia, unspecified; K57.30 Diverticulosis of large intestine without perforation or abscess without bleeding; F17.210 Nicotine dependence, cigarettes, uncomplicated; Z79.899 Other long term (current) drug therapy; Z87.11 Personal history of peptic ulcer disease; Z90.710 Acquired absence of both cervix and uterus
CPT/HCPCS: 93005; 85025; 80048; 36415; 85610; 82565; 80076; 85730; 81003; 83690; 74177; 99285; Q9967; C9113; J2543; J7030 ×3; J2405 ×3; G0378 ×2

== ENCOUNTER 2020-07-29 02:19 | Emergency (ER) | payer BC ==
[2020-07-29] MEDS ORDERED: MORPHINE 4 MG/ML SYR ONE (03:12)
[2020-07-29] MEDS ORDERED: ONDANSETRON 4 MG/2 ML VIAL ONE (03:12)
[2020-07-29 03:13] LABS: Absolute Lymphocytes (CBC) 2.3 K/uL (0.7-4.9); Basophils % 0.7 % (0-1.3); Hematocrit 40.3 % (36.0-45.0); MPV 8.2 fL (7.6-11.3); RBC Red Blood Cell Count 4.72 M/uL (3.86-4.86)
[2020-07-29] MEDS ORDERED: FAMOTIDINE 20 MG/2 ML VIAL IV ONE (03:13)
[2020-07-29 03:29] LABS: ALT/SGPT 43 U/L (12-78); AST/SGOT 22 U/L (15-37); Albumin 3.1 g/dL (3.4-5.0); Alkaline Phosphatase 122 U/L (45-117); BUN Blood Urea Nitrogen 10 mg/dL (7-18); Bicarbonate 21 mmol/L (21-32); Bilirubin Direct < 0.1 mg/dL (0-0.2); Bilirubin Total 0.1 mg/dL (0.2-1.0); Glucose Level 107 mg/dL (74-106); Lipase 186 U/L (73-393); Potassium 3.9 mmol/L (3.5-5.1); Protein, Total 7.2 g/dL (6.4-8.2); Sodium Level 141 mmol/L (136-145)
--- NOTE | 2020-07-29 05:16 | ER ---
Nurse's Notes [facility] Name: Dahiana Palafox Age: 54 yrs Sex: Female : 1965 Arrival Date: 07/29/2020 Time: 02:24 Bed 5 Private MD: Diagnosis: Cholelithiasis Presentation: 07/29 02:29 Chief complaint: Patient states: PATIENT WAS HERE TWO DAYS AGO AND WAS ADMITTED FOR rv INFLAMED GALL BLADDER. SHE WAS DISCHARGED THAT SAME DAY AND PRESCRIBED WITH ANTIBIOTIC. AN HOUR AGO, SHE HAD SEVERE ABDOMINAL PAIN, WITH NAUSEA. Coronavirus screen: At this time, the client does not indicate any symptoms associated with coronavirus-19. Ebola Screen: No symptoms or risks identified at this time. Initial Sepsis Screen: Does the patient meet any 2 criteria? No. Patient's initial sepsis screen is negative. Does the patient have a suspected source of infection? No. Patient's initial sepsis screen is negative. Risk Assessment: Do you want to hurt yourself or someone else? Patient reports no desire to harm self or others. Onset of symptoms was July 29, 2020 at 01:00. 02:29 Method Of Arrival: Ambulatory rv 02:29 Acuity: VIVIANA 3 rv Triage Assessment: 02:37 General: Appears uncomfortable, Behavior is calm, cooperative. Pain: Complains of pain rv in abdomen. EENT: No signs and/or symptoms were reported regarding the EENT system. Neuro: Level of Consciousness is awake, alert, obeys commands, Oriented to person, place, time, situation. Cardiovascular: Patient's skin is warm and dry. Respiratory: Airway is patent. GI: Abdomen is round non-distended, Reports upper abdominal pain, nausea. Derm: Skin is intact. 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 - Social history:: Smoking status: Patient reports the use of cigarette tobacco products, smokes one-half pack cigarettes per day. Screenin:38 Abuse screen: Denies threats or abuse. Denies injuries from another. Nutritional rv screening: No deficits noted. Tuberculosis screening: No symptoms or risk factors identified. Fall Risk None identified. Assessment: 02:39 GI: Bowel sounds present X 4 quads. Abd is soft X 4 quads. rv 04:24 Reassessment: PATIENT IS BACK FROM CT SCAN. AWAITING RESULT. rv 05:32 Reassessment: Patient is alert, oriented x 3, equal unlabored respirations, skin bb warm/dry/pink. pt states she has consult with Dr Barrear Thursday and verbalized understanding of and agrees to plan of care discharge instructions given pt ambulated with steady gait to exit. Vital Signs: 02:29 Pulse 69; Resp 17; Temp 97.3; Pulse Ox 100% ; Weight 61.23 kg; Height 5 ft. 1 in. rv (154.94 cm); Pain 10/10; 02:44 BP 139 / 76; rv 04:23 BP 142 / 70; Pulse 72; Resp 18; Pulse Ox 100% ; rv 05:33 BP 142 / 74; Pulse 63; Resp 16 S; Temp 98.4(O); Pulse Ox 99% on R/A; Pain 6/10; bb 02:29 Body Mass Index 25.51 (61.23 kg, 154.94 cm) rv ED Course: 02:24 Patient arrived in ED. bp1 02:25 Pedrito Davila, NOEL is Primary Nurse. rv 02:36 Triage completed. rv 02:37 Arm band placed on Patient placed in the treatment room, on a stretcher, Patient rv notified of wait time. 02:38 Jeremiah Willoughby MD is Attending Physician. mh7 02:39 Placed in gown. Bed in low position. Call light in reach. Pulse ox on. NIBP on. rv 02:42 Inserted saline lock: 20 gauge in right forearm, using aseptic technique. Blood ds4 collected. 04:16 CT Abd/Pelvis - IV Contrast Only In Process Unspecified. EDMS 05:15 Osbaldo Barrera MD is Referral Physician. mh7 05:34 No provider procedures requiring assistance completed. IV discontinued, intact, bb bleeding controlled, No redness/swelling at site. Pressure dressing applied. Administered Medications: 03:00 Drug: Pepcid 20 mg Route: IVP; Site: right antecubital; rr5 04:25 Follow up: Response: No adverse reaction rv 03:02 Drug: Zofran (Ondansetron) 4 mg Route: IVP; Site: right antecubital; rr5 04:25 Follow up: Response: No adverse reaction rv 03:04 Drug: morphine 4 mg {Note: rass 0.} Route: IVP; Site: right antecubital; rr5 04:25 Follow up: Response: No adverse reaction; Pain is decreased; RASS: Alert and Calm (0) rv Outcome: 05:15 Discharge ordered by MD. coronado 05:34 Discharged to home ambulatory. bb 05:34 Condition: stable 05:34 Discharge instructions given to patient, Instructed on discharge instructions, follow up and referral plans. medication usage, Demonstrated understanding of instructions, follow-up care, medications, Prescriptions given X 2. 05:34 Patient left the ED. bb Signatures: Dispatcher [employer] EDMS Beatris Machado RN RN bb Florentin Jackson ds4 Pedrito Davila RN RN rv Chalino Castillo RN RN rr5 Natalia Florez Maurice, MD MD 7
--- NOTE | 2020-07-29 05:16 | EDPHYS ---
Physician Documentation [facility] Name: Dahiana Palafox Age: 54 yrs Sex: Female : 1965 Arrival Date: 07/29/2020 Time: 02:24 Bed 5 Private MD: ED Physician Jeremiah Willoughby HPI: 07/29 03:03 This 54 yrs old Female presents to ER via Ambulatory with complaints of mh7 Abdominal Pain. 03:03 The patient presents with abdominal pain in the upper abdomen. Onset: The mh7 symptoms/episode began/occurred just prior to arrival, today. The symptoms do not radiate. Associated signs and symptoms: Pertinent positives: nausea, Pertinent negatives: anorexia, blood in stools, chest pain, constipation, diarrhea, dysuria, fever, headache, hematuria, palpitations, shortness of breath, vaginal discharge, vomiting, vomiting blood. The symptoms are described as intermittent, vague, waxing/waning. Modifying factors: The symptoms are alleviated by nothing, the symptoms are aggravated by nothing. Severity of pain: At its worst the pain was moderate today, in the emergency department the pain is unchanged. 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 - Social history:: Smoking status: Patient reports the use of cigarette tobacco products, smokes one-half pack cigarettes per day. ROS: 03:03 Constitutional: Negative for fever, chills, and weight loss, Eyes: Negative for injury, mh7 pain, redness, and discharge, ENT: Negative for injury, pain, and discharge, Neck: Negative for injury, pain, and swelling, Cardiovascular: Negative for chest pain, palpitations, and edema, Respiratory: Negative for shortness of breath, cough, wheezing, and pleuritic chest pain, Back: Negative for injury and pain, : Negative for injury, bleeding, discharge, and swelling, MS/Extremity: Negative for injury and deformity, Skin: Negative for injury, rash, and discoloration, Neuro: Negative for headache, weakness, numbness, tingling, and seizure, Psych: Negative for depression, anxiety, suicide ideation, homicidal ideation, and hallucinations, Allergy/Immunology: Negative for hives, rash, and allergies, Endocrine: Negative for neck swelling, polydipsia, polyuria, polyphagia, and marked weight changes, Hematologic/Lymphatic: Negative for swollen nodes, abnormal bleeding, and unusual bruising. Exam: 03:03 Head/Face: Normocephalic, atraumatic. Eyes: Pupils equal round and reactive to light, mh7 extra-ocular motions intact. Lids and lashes normal. Conjunctiva and sclera are non-icteric and not injected. Cornea within normal limits. Periorbital areas with no swelling, redness, or edema. Chest/axilla: Normal chest wall appearance and motion. Nontender with no deformity. No lesions are appreciated. Cardiovascular: Regular rate and rhythm with a normal S1 and S2. No gallops, murmurs, or rubs. Normal PMI, no JVD. No pulse deficits. Respiratory: Lungs have equal breath sounds bilaterally, clear to auscultation and percussion. No rales, rhonchi or wheezes noted. No increased work of breathing, no retractions or nasal flaring. 03:03 Back: No spinal tenderness. No costovertebral tenderness. Full range of motion. Skin: Warm, dry with normal turgor. Normal color with no rashes, no lesions, and no evidence of cellulitis. MS/ Extremity: Pulses equal, no cyanosis. Neurovascular intact. Full, normal range of motion. Neuro: Awake and alert, GCS 15, oriented to person, place, time, and situation. Cranial nerves II-XII grossly intact. Motor strength 5/5 in all extremities. Sensory grossly intact. Cerebellar exam normal. Normal gait. Psych: Awake, alert, with orientation to person, place and time. Behavior, mood, and affect are within normal limits. 03:03 Constitutional: The patient appears in no acute distress, alert, awake, uncomfortable. 03:03 Abdomen/GI: Inspection: abdomen appears normal, obese Bowel sounds: normal, in all quadrants, Palpation: moderate abdominal tenderness, in the epigastric area and right upper quadrant, Rectal exam: the exam is deferred, because of patient request, Indicators: McBurney's point is not tender, Spaulding's sign is negative, Rovsing's sign is negative, Obturator sign is negative, Psoas sign is negative, Liver: no appreciated palpable abnormalities, Hernia: not appreciated. Vital Signs: 02:29 Pulse 69; Resp 17; Temp 97.3; Pulse Ox 100% ; Weight 61.23 kg; Height 5 ft. 1 in. rv (154.94 cm); Pain 10/10; 02:44 BP 139 / 76; rv 04:23 BP 142 / 70; Pulse 72; Resp 18; Pulse Ox 100% ; rv 05:33 BP 142 / 74; Pulse 63; Resp 16 S; Temp 98.4(O); Pulse Ox 99% on R/A; Pain 6/10; bb 02:29 Body Mass Index 25.51 (61.23 kg, 154.94 cm) rv MDM: 02:54 Patient medically screened. [facility] 05:13 Differential diagnosis: bowel obstruction, cholecystitis, Cholelithiasis, 7 diverticulitis, gastritis, gastroesophageal reflux disease, non-specific abd pain, pancreatitis, Peptic Ulcer Disease, Perf. Duodenal Ulcer, Perf. Gastric Ulcer, Pyelonephritis, Ureterolithiasis, urinary tract infection. Data reviewed: vital signs, nurses notes, old medical records, lab test result(s), CBC, electrolytes, urinalysis, EKG, radiologic studies, CT scan. Data interpreted: Pulse oximetry: on room air is 100 %. Counseling: I had a detailed discussion with the patient and/or guardian regarding: the historical points, exam findings, and any diagnostic results supporting the discharge/admit diagnosis, the presence of at least one elevated blood pressure reading (>120/80) during this emergency department visit, lab results, radiology results, the need for outpatient follow up, to return to the emergency department if symptoms worsen or persist or if there are any questions or concerns that arise at home. Response to treatment: the patient's symptoms have resolved after treatment, the patient's blood pressure is in an acceptable range, mental status has returned to baseline, the patient no longer shows bradycardia, the patient is not short of breath, the patient is not tachycardic, the patient's pain is gone, the patient's temperature has normalized, the patient is now symptom free, patient is well hydrated. 07/29 02:55 Order name: Basic Metabolic Panel; Complete Time: 03:31 [facility] 07/29 02:55 Order name: CBC with Diff; Complete Time: 03:20 [facility] 07/29 02:55 Order name: Hepatic Function; Complete Time: 03:31 [facility] 07/29 02:55 Order name: Lipase; Complete Time: 03:31 [facility] 07/29 05:14 Order name: Urine Dipstick--Ancillary (enter results) ar5 07/29 05:14 Order name: Urine Dipstick-Ancillary EDMS 07/29 02:55 Order name: IV Saline Lock; Complete Time: 02:58 [facility] 07/29 02:55 Order name: Labs collected and sent; Complete Time: 02:58 [facility] 07/29 02:55 Order name: Urine Dipstick-Ancillary (obtain specimen); Complete Time: 05:14 [facility] 07/29 02:55 Order name: EKG - Nurse/Tech; Complete Time: 02:58 [facility] 07/29 03:37 Order name: CT Abd/Pelvis - IV Contrast Only [facility] Administered Medications: 03:00 Drug: Pepcid 20 mg Route: IVP; Site: right antecubital; rr5 04:25 Follow up: Response: No adverse reaction rv 03:02 Drug: Zofran (Ondansetron) 4 mg Route: IVP; Site: right antecubital; rr5 04:25 Follow up: Response: No adverse reaction rv 03:04 Drug: morphine 4 mg {Note: rass 0.} Route: IVP; Site: right antecubital; rr5 04:25 Follow up: Response: No adverse reaction; Pain is decreased; RASS: Alert and Calm (0) rv Disposition: 07:10 Co-signature as Attending Physician, Jeremiah Willoughby MD. [facility] Disposition: 07/29/20 05:15 Discharged to Home. Impression: Cholelithiasis. - Condition is Stable. - Discharge Instructions: Cholelithiasis, [id number]. - Prescriptions for Bentyl 20 mg Oral Tablet - take 1 tablet by ORAL route every 6 hours As needed; 20 tablet. Tramadol 50 mg Oral Tablet - take 1 tablet by ORAL route every 8 hours as needed; 12 tablet. - Medication Reconciliation Form, Thank You Letter, Antibiotic Education, Prescription Opioid Use form. - Follow up: Private Physician; When: 1 - 2 days; Reason: Worsening of condition, Recheck today's complaints, Continuance of care, Re-evaluation by your physician. Follow up: Osbaldo Barrera MD; When: 1 - 2 days; Reason: Worsening of condition, Recheck today's complaints, Continuance of care. - Problem is an ongoing problem. - Symptoms have improved. Signatures: Dispatcher [employer] EDBeatris Diaz RN RN bb Pedrito Davila RN RN rv Chalino Castillo RN RN rr5 Jeremiah Willoughby MD MD 7 Corrections: (The following items were deleted from the chart) 05:34 05:15 07/29/2020 05:15 Discharged to Home. Impression: Cholelithiasis. Condition is bb Stable. Forms are Medication Reconciliation Form, Thank You Letter, Antibiotic Education, Prescription Opioid Use. Follow up: Private Physician; When: 1 - 2 days; Reason: Worsening of condition, Recheck today's complaints, Continuance of care, Re-evaluation by your physician. Follow up: Osbaldo Barrera; When: 1 - 2 days; Reason: Worsening of condition, Recheck today's complaints, Continuance of care. Problem is an ongoing problem. Symptoms have improved. 7
[2020-07-29 05:42] LABS: Urine Blood TRACE (NEG); Urine Glucose NEGATIVE (NEG); Urine Protein NEGATIVE (NEG)
--- NOTE | 2020-07-30 12:12 | RAD REPORT ---
EXAM DESCRIPTION: CT - Abdomen Pelvis W Contrast - 07/29/2020 5:49 am CLINICAL HISTORY: The patient is 54 years old and is Female; ABD PAIN TECHNIQUE: Axial computed tomography images of the abdomen and pelvis with intravenous contrast. S agittal and coronal reformatted images were created and reviewed. This CT exam was performed using one or more of the following dose reduction techniques: automated exposure control, adjustment of t he mA and/or kV according to patient size, and/or use of iterative reconstruction technique. COMPARISON: CT of the abdomen and pelvis July 26, 2020 FINDINGS: LUNG BASES: Unremarkable. No mass. No consolidation. ABDOMEN: LIVER: Unremarkable. No mass. GALLBLADDER AND BILE DUCTS: Gallbladder is distended. Punctate calcified gallstones are present. The degree of distention has improved from prior exam. PANCREAS: No ductal dilation. No mass. SPLEEN: A splenule is present within left upper quadrant. The spleen is unremarkable. ADRENALS: Unremarkable. No mass. KIDNEYS AND URETERS: Unremarkable. The kidneys enhance symmetrically. No obstructing renal or ur eteral calculus is seen. No hydronephrosis or hydroureter. No perinephric fluid or stranding. STOMACH AND BOWEL: The stomach is decompressed. A moderate sized duodenal diverticulum is noted without surrounding inflammation. The majority the small bowel is decompressed. A few small bowel loo ps within the right lower quadrant are fluid-filled. A moderate amount stool is present throughout co yong. Scattered colonic diverticula are noted without surrounding inflammation. There is no bowel obst ruction. PELVIS: APPENDIX: The appendix is normal in caliber without surrounding inflammation. BLADDER: Unremarkable. No mass. REPRODUCTIVE: The patient is status post hysterectomy. ABDOMEN and PELVIS: INTRAPERITONEAL SPACE: Unremarkable. No free air. No significant fluid collection. BONES/JOINTS: No acute fracture. SOFT TISSUES: The soft tissues are normal. VASCULATURE: Atherosclerosis of the vasculature is present. No abdominal aortic aneurysm. LYMPH NODES: Unremarkable. No enlarged lymph nodes. IMPRESSION: 1. Few nonspecific fluid-filled small bowel loops within the right abdomen which may b e secondary to a focal enteritis. There is no bowel obstruction. 2. Colonic diverticulosis. 3. Cholelithiasis. The degree of gallbladder distention has improved since prior exam. Electronically signed by: Bri Amato MD 07/29/2020 4:51 AM CDT Due to temporary technical issues with the PACS/Fluency reporting system, reports are being signed by the in house radiologist without review as a courtesy to ensure prompt reporting. The interpreting r adiologist is fully responsible for the content of the report.
--- NOTE | 2020-07-31 07:01 | EKG ---
Test Date: 2020-07-29 Test Time: 03:14:12 Asset Management Lead: RR MEASUREMENT RESULTS: Intervals: Rate: 65 NH: 142 QRSD: 82 QT: 412 QTc: 428 [place]ley: P: 64 NH: 142 QRS: 62 T: 54 INTERPRETIVE STATEMENTS: Normal sinus rhythm Normal ECG Compared to ECG 07/26/2020 02:59:48 No significant changes Electronically Signed On 07-31-20 07:00:13 CDT by Demian Pisano
[2020-08-01 12:30] VITALS: BP 142/74; TEMP 98.4; O2SAT 99
== END 2020-07-29 05:34 | disposition home or self-care (01) ==
LOC: ER 02:19
DX: K80.20 Calculus of gallbladder without cholecystitis without obstruction (principal); I10 Essential (primary) hypertension; F17.210 Nicotine dependence, cigarettes, uncomplicated; Z88.5 Allergy status to narcotic agent
CPT/HCPCS: 93005; 85025; 80048; 36415; 80076; 81003; 83690; 74177; 96375; 96374; 99284; Q9967; J2405

== ENCOUNTER 2020-08-01 08:22 | Day surgery (SDC) | payer BC ==
[2020-08-01] MEDS ORDERED: BUPIVACA 0.25%/EPI 0.0005%/PF 30 ML VIAL ONE (08:59)
[2020-08-01] MEDS ORDERED: CEFOXITIN/SWI 1gm 1 GM/10 ML SYR ONE (09:07)
[2020-08-01] MEDS ORDERED: Ringers Lactate 1,000 ML IV ONE (09:07)
[2020-08-01] MEDS ORDERED: BUPIVACA 0.25%/EPI 0.0005% MDV 50 ML VIAL ONE (10:18)
[2020-08-01] MEDS ORDERED: propofoL 200 MG/20 ML VIAL IV ONE (10:34)
[2020-08-01] MEDS ORDERED: LIDOCAINE 2% MPF 5 ML VIAL ONE (10:34)
[2020-08-01] MEDS ORDERED: ROCURONIUM 50 MG/5 ML VIAL IV ONE (10:34)
[2020-08-01] MEDS ORDERED: FENTANYL CITR 100 MCG/2 ML ONE (10:34)
[2020-08-01] MEDS ORDERED: dexAMETHasone 10 MG/ML VIAL ONE (10:34)
[2020-08-01] MEDS ORDERED: MIDAZOLAM HCL 2 MG/2 ML INJ ONE (10:34)
[2020-08-01] MEDS ORDERED: ONDANSETRON 4 MG/2 ML VIAL ONE ×2 (10:35→12:14)
--- NOTE | 2020-08-01 11:23 | P.OP ---
Oncology Physician Assistant: NONE,NONE Preoperative diagnosis: Chronic Cholecystitis Postoperative diagnosis: Chronic Cholecystitis Primary procedure: Laparoscopic Cholecystectomy Anesthesia: GETA + Local Estimated blood loss: <10cc Specimen: gallbladder Findings: stomach adhered to gallbladder, floppy, distended gallbladder Complications: None Transferred to: Recovery Room Condition: Good
[2020-08-01] MEDS ORDERED: KETOROLAC 30 MG/ML INJ ONE (11:30)
[2020-08-01] MEDS: MORPHINE 4 MG/ML SYR ONE ×4 (11:59→12:14)
[2020-08-01] MEDS ORDERED: MORPHINE 4 MG/ML SYR ONE (12:22)
[2020-08-01] MEDS: HYDROMORPHONE HCL 1 MG/ML INJ ONE ×2 (12:29→12:35)
[2020-08-01] MEDS ORDERED: TRAMADOL 37.5mg/APAP 325mg PER TAB ONE (13:29)
[2020-08-01 13:42] VITALS: BP 145/65; TEMP 96.9; O2SAT 99
--- NOTE | 2020-08-01 22:04 | OP ---
Date of Procedure: 08/01/2020 Surgeon: Osbaldo Barrera MD, Preoperative Diagnosis: Chronic cholecystitis. Postoperative Diagnosis: Chronic cholecystitis. Procedure Performed: Laparoscopic cholecystectomy. Anesthesia: General endotracheal plus local with 0.25% Marcaine. Estimated Blood Loss: Less than 10 mL. Specimen: Gallbladder. Findings: 1.Stomach adhered firmly to gallbladder anterior wall. 2.Floppy descending gallbladder. Complications: None. Transferred to recovery room in good condition. Procedure In Detail: After informed consent was obtained, the patient was brought to the operating r oom, prepped and draped in the usual sterile fashion. After adequate anesthesia was achieved, suprau mbilical area was anesthetized with 0.25% Marcaine, sharply incised. A 5 mm 0-degree optical trocar was introduced in the abdomen without evidence of complication. Insufflation was obtained to 15 mmHg at this time. There was no injury to vital structures upon entering the abdomen. Two additional tr ocar sites were chosen, one on the epigastrium, one in the right upper quadrant. This was similarly anesthetized and sharply incised. A 5 mm trocar was introduced in the abdomen without evidence of co mplication. The umbilical trocar was then up-sized to a 12 mm under direct visualization without junior dence of complication. The patient was positioned head up right-side up position. Ratcheted grasper was used to grasp the patient's gallbladder, found to be quite floppy and distended, making manipula tion somewhat difficult. Dissection was continued down to the Morteza's pouch area with the stomach was found to be firmly adherent to the anterior surface. Careful blunt and combination of blunt and sharp dissection was performed to remove the stomach from the anterior gallbladder wall. After this was performed, I dissected down to the Morteza pouch region to dissect out 2 structures identified as the cystic duct and cystic artery. These were both identified as the only 2 structures into the g allbladder. The critical view of safety was obtained at this time after completely encircling these 2 and skeletonizing these 2 structures. Double titanium clips were placed on the proximal side and s ingly on the distal side of both cystic duct and cystic artery and they were ligated using Endo Shear s. The gallbladder was removed from the hepatic fossa without evidence of complication, with electro cautery with minimal bile spillage. The gallbladder was then placed in the EndoCatch bag and removed through umbilical trocar and sent off for pathologic examination. The abdomen was then re-insufflat ed at this point and the areas were inspected. Proper hemostasis was achieved without any additional hemostatic maneuvers. The area was copiously irrigated multiple times and suctioned out completely clear. The clips were found to be in good anatomic position without any leakage of bile. The patien t was positioned up back in neutral position. The area was copiously irrigated multiple times once a gain and suctioned out until completely clear. The umbilical trocar was then removed. The umbilical trocar site was closed using a Benito-Doreen suture passer with a 0 Vicryl in interrupted fashion with good approximation of tissues. The abdomen was completely desufflated under direct visualizatio n without evidence of complication. After all remaining trocars were completely removed, the skin in cisions were copiously irrigated and closed with a 4-0 Monocryl in a running fashion. Dermabond was placed over top. The patient tolerated the procedure well without evidence of complication, transfer red to PACU in good condition. All counts were correct at the end of the case. JACKELYN/MADELINE Voice ID: [id number] Report ID: [id number]
== END 2020-08-01 14:11 | disposition home or self-care (01) ==
LOC: OR 08:22
PROVIDERS: ATTEND Surgery
PROC: 0FT44ZZ Resection of Gallbladder, Percutaneous Endoscopic Approach (ICD-10-PCS; principal; 2020-08-01 09:45)
DX: K80.10 Calculus of gallbladder with chronic cholecystitis without obstruction (principal); K21.9 Gastro-esophageal reflux disease without esophagitis; I10 Essential (primary) hypertension; E78.5 Hyperlipidemia, unspecified; F17.200 Nicotine dependence, unspecified, uncomplicated; Z20.828 Contact with and (suspected) exposure to other viral communicable diseases; Z88.6 Allergy status to analgesic agent; Z82.49 Family history of ischemic heart disease and other diseases of the circulatory system
CPT/HCPCS: 47562; 88304; U0002; J2704; J2250; J3010; J1100; J1170; J7120; J2405 ×2

== ENCOUNTER 2021-01-15 11:02 | Emergency (ER) | payer BC, SELFPAY ==
--- NOTE | 2021-01-15 13:12 | EDPHYS ---
Physician Documentation [facility] Name: Dahiana Palafox Age: 55 yrs Sex: Female : 1965 Arrival Date: 01/15/2021 Time: 11:05 Bed 26 Private MD: ED Physician Gigi Fontenot HPI: 01/15 13:08 This 55 yrs old Female presents to ER via Ambulatory with complaints of Fall cp Injury, Arm Injury. 13:08 Details of fall: The patient fell from an upright position. Onset: The symptoms/episode cp began/occurred this morning. Associated injuries: The patient sustained left elbow, painful injury. Historical: - Allergies: 11:37 Codeine; iw - PMHx: 11:37 acid reflux; gastric ulcers; GERD; Hyperlipidemia; Hypertension; Thyroid problem; iw - PSHx: 11:37 None; iw - Immunization history:: Adult Immunizations. - Social history:: Smoking status: . ROS: 13:10 Constitutional: Negative for body aches, chills, fever, poor PO intake. cp 13:10 Eyes: Negative for injury, pain, redness, and discharge. cp 13:10 Neck: Negative for pain with movement, pain at rest, stiffness. 13:10 Cardiovascular: Negative for chest pain, edema, palpitations. 13:10 Respiratory: Negative for cough, shortness of breath, wheezing. 13:10 Abdomen/GI: Negative for abdominal pain, nausea, vomiting, and diarrhea. 13:10 MS/extremity: Positive for pain, tenderness, of the left elbow, Negative for decreased range of motion, deformity, paresthesias. 13:10 Neuro: Negative for headache, loss of consciousness, syncope, weakness. 13:10 All other systems are negative. Exam: 13:10 Constitutional: The patient appears in no acute distress, alert, awake, well developed, cp well nourished. 13:10 Head/Face: Normocephalic, atraumatic. cp 13:10 Neck: C-spine: vertebral tenderness, is not appreciated, crepitus, is not appreciated, ROM/movement: is normal, is supple, without pain, no range of motions limitations. 13:10 Chest/axilla: Inspection: normal. 13:10 Cardiovascular: Rate: normal. 13:10 Respiratory: the patient does not display signs of respiratory distress, Respirations: normal, no use of accessory muscles, labored breathing, is not present. 13:10 Abdomen/GI: Exam negative for discomfort, distension, guarding, Inspection: abdomen appears normal. 13:10 Musculoskeletal/extremity: Extremities: grossly normal except: noted in the left elbow: swelling, tenderness, There is no evidence of decreased ROM, deformity, ROM: limited passive range of motion due to pain, in the left elbow, Perfusion: the extremity is normally perfused throughout, Sensation intact. Vital Signs: 11:35 BP 114 / 70; Pulse 90; Resp 16; Temp 97.6; Pulse Ox 98% on R/A; Weight 63.5 kg; Height iw 5 ft. (152.40 cm); 11:35 Body Mass Index 27.34 (63.50 kg, 152.40 cm) iw MDM: 13:00 Patient medically screened. [facility] 13:06 Data reviewed: vital signs, nurses notes, radiologic studies, plain films. Test cp interpretation: by ED physician or midlevel provider: xrays of left elbow negative for acute fracture. 13:11 Differential diagnosis: contusion, fracture, dislocation. cp 13:11 Counseling: I had a detailed discussion with the patient and/or guardian regarding: the cp historical points, exam findings, and any diagnostic results supporting the discharge/admit diagnosis, radiology results, to return to the emergency department if symptoms worsen or persist or if there are any questions or concerns that arise at home. 01/15 11:37 Order name: Elbow Left 3 View XRAY 01/15 13:06 Order name: Sling; Complete Time: 13:26 cp Administered Medications: 13:23 Drug: Ibuprofen 800 mg Route: PO; iw 13:23 Drug: Flexeril 10 mg Route: PO; iw 13:23 Drug: Hydrocodone-Acetaminophen (7.5 mg-325 mg) 1 tabs Route: PO; iw Disposition: 01/15/21 13:11 Discharged to Home. Impression: Pain in left elbow. - Condition is Stable. - Discharge Instructions: Elbow Contusion. - Prescriptions for Cyclobenzaprine 10 mg Oral Tablet - take 1 tablet by ORAL route every 8 hours As needed; 20 tablet. Diclofenac Sodium 75 mg Oral Tablet, Delayed Release (E.C.) - take 1 tablet by ORAL route 2 times per day; 20 tablet. - Medication Reconciliation Form, Thank You Letter, Antibiotic Education, Prescription Opioid Use form. - Follow up: Jesus Centeno MD; When: 2 - 3 days; Reason: Recheck today's complaints. - Problem is new. - Symptoms have improved. Addendum: 01/17/2021 06:56 Co-signature as Attending Physician, Gigi Fontenot MD I agree with the assessment and c romero plan of care. Signatures: Dispatcher [employer] EDOH Gigi Fontenot MD MD cha Williams, Irene, RN RN iw Gigi Zuniga PA PA cp Corrections: (The following items were deleted from the chart) 01/15 13:35 13:11 01/15/2021 13:11 Discharged to Home. Impression: Pain in left elbow. Condition is iw Stable. Forms are Medication Reconciliation Form, Thank You Letter, Antibiotic Education, Prescription Opioid Use. Follow up: Jesus Centeno; When: 2 - 3 days; Reason: Recheck today's complaints. Problem is new. Symptoms have improved. cp 01/16 12:26 01/15 13:15 Differential diagnosis: contusion, fracture, dislocation, cp cp
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
[2021-01-15] MEDS ORDERED: HYDROCODONE/APAP 7.5/325 MG TAB ONE (13:33)
[2021-01-15] MEDS ORDERED: CYCLOBENZAPRINE 10 MG TAB ONE (13:33)
[2021-01-15] MEDS ORDERED: IBUPROFEN 400 MG TAB ONE (13:33)
[2021-01-15 13:41] VITALS: BP 114/70; TEMP 97.6; O2SAT 98
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
== END 2021-01-15 13:35 | disposition home or self-care (01) ==
LOC: ER 11:02
DX: M25.522 Pain in left elbow (principal); K21.9 Gastro-esophageal reflux disease without esophagitis; E78.5 Hyperlipidemia, unspecified; I10 Essential (primary) hypertension
CPT/HCPCS: 99283

== ENCOUNTER 2022-08-22 19:02 | Emergency (ER) | payer SELFPAY ==
--- OUTSIDE RECORDS SUMMARY | 2022-08-22 19:05 | XMS REPORT | Continuity of Care Document ---
:1965 Author Organization [facility] t Address [address] Jesus [address] [place] [id number] Care Team Providers Name Role Phone Unavailable Unavailable Unavailable Problems This patient has no known problems. Allergies, Adverse Reactions, Alerts This patient has no known allergies or adverse reactions. Medications This patient has no known medications. Procedures This patient has no known procedures. Results Test Description Test Time Test Comments Results Result Comments Source HEMOGLOBIN A1c 2022-03-13 09:02:45 Test Item Value Reference Range Interpretation Comme nts HEMOGLOBIN A1c (test code = 85677) 5.5 % 4.2-5.6 VITAMIN D, 25 [id number] 06:40:24 Test Item Value Reference Range Interpretation Comments VITAMIN D, 25 OH 29 NG/ML SEE BELOW L NOTE: 25-H YDROXYVITAMIN D (test code = 4958) ASSAY INC LUDES 25-HYDROXYVITAM IN D2 AND D3. METHODOLOGY IS CHEMILUMINESCEN T IMMUNOASSAY. INTERPRETIVE RA NGES PEDIATRIC (<17 YEARS) . . . . . . . . . . . NG/ML 20-100ADULT: IN SUFFICIENT . . . . . . . . . . . . . . NG/ML <20 SUBOP TIMAL . . . . . . . . . . . . . . . NG/ML 20-29 OPT IMAL . . . . . . . . . . . . . . . . . NG/ML 30-100 UN LESS OTHERWISE INDIC ATED, ALL TESTING PERFORM ED [facility], [place] [address] [place] [id number] LABORATORY DIRE CTOR: Monica STOUT. CLIA NUMBER [id number] CAP ACCREDITATION N O. [id number] COMPREHENSIVE METABOLIC [id number] 05:29:47 Test Item Value Reference Range Interpretation Comments GLUCOSE (test code = 106 MG/DL 70-99 H 2216) BUN (test code = 8 MG/DL 6-20 2207) CREATININE (test 0.60 MG/DL 0.60-1.30 code = 221) eGFR (2020 CKD-EPI) 105 >60 (test code = 05766) ML/MIN/1.73 CALC BUN/CREAT (test 13 RATIO 6-28 code = 2235) SODIUM (test code = 144 MEQ/L 509-082 8845) POTASSIUM (test code 4.7 MEQ/L 3.5-5.4 = 2227) CHLORIDE (test code 105 MEQ/L 95-107 = 2214) CARBON DIOXIDE (test 27 MEQ/L 19-31 code = 2205) CALCIUM (test code = 9.2 MG/DL 8.5-10.5 2208) PROTEIN, TOTAL (test 7.4 G/DL 6.1-8.3 code = 2228) ALBUMIN (test code = 4.5 G/DL 3.5-5.2 2200) CALC GLOBULIN (test 2.9 G/DL 1.9-3.7 code = 224) CALC A/G RATIO (test 1.6 RATIO 1.0-2.6 code = 223) BILIRUBIN, TOTAL <0.2 MG/DL See_Comment [Automated message] (test code = 2206) The syste m which generated this result transmit mika reference range : <=1.2. The refe rence range was not u sed to interpret th is result as normal/abnormal . ALKALINE PHOSPHATASE 127 U/L 40-136 (test code = 2203) AST (test code = 18 U/L 9-40 2217) ALT (test code = 16 U/L 5-40 2218) OCCULT BLD,FECAL,IMMUNOASSAY [id number] 11:25:13 Test Item Value Reference Range Interpretation Comments OCCULT BLD, FECAL NEGATIVE NEGATIVE UNLESS OT HERWISE (test code = 01428) INDICATE D, ALL TESTING PERFORMED [facility] [address] [place] [address] LABOR ATORY DIRECTOR: LAYTON BENAVIDEZ M.D. CLIA NUMBER [id number] CAP ACCREDITATION N O. [id number] VITAMIN D, 25 [id number] 04:55:35 Test Item Value Reference Range Interpretation Comments VITAMIN D, 25 OH <4 NG/ML SEE BELOW L NOTE: 25-H YDROXYVITAMIN D (test code = 4958) ASSAY INC LUDES 25-HYDROXYVITAM IN D2 AND D3. METHODOLOGY IS CHEMILUMINESCEN T IMMUNOASSAY. INTERPRETIVE RA NGES PEDIATRIC (<17 YEARS) . . . . . . . . . . . NG/ML 20-100ADULT: IN SUFFICIENT . . . . . . . . . . . . . . NG/ML <20 SUBOP TIMAL . . . . . . . . . . . . . . . NG/ML 20-29 OPT IMAL . . . . . . . . . . . . . . . . . NG/ML 30-100 HIV 1/2 4TH GEN, RFLX [id number] 03:55:08 Test Item Value Reference Range Interpretation Comments HIV 1/2 4TH GEN, RFLX CONF (test NON-REACTIVE NON-REACTIVE code = 3514) COMPREHENSIVE METABOLIC [id number] 00:18:16 Test Item Value Reference Range Interpretation Comments GLUCOSE (test code = 88 MG/DL 70-99 2216) BUN (test code = 7 MG/DL 6-20 2207) CREATININE (test 0.72 MG/DL 0.60-1.30 code = 2214) eGFR (2020 CKD-EPI) 99 ML/MIN/1.73 >60 (test code = 92954) CALC BUN/CREAT (test 10 RATIO 6-28 code = 2235) SODIUM (test code = 146 MEQ/L 361-443 4322) POTASSIUM (test code 4.6 MEQ/L 3.5-5.4 = 222) CHLORIDE (test code 105 MEQ/L 95-107 = 2215) CARBON DIOXIDE (test 17 MEQ/L 19-31 L code = 2206) CALCIUM (test code = 8.7 MG/DL 8.5-10.5 2208) PROTEIN, TOTAL (test 7.1 G/DL 6.1-8.3 code = 2229) ALBUMIN (test code = 4.3 G/DL 3.5-5.2 2200) CALC GLOBULIN (test 2.8 G/DL 1.9-3.7 code = 2240) CALC A/G RATIO (test 1.5 RATIO 1.0-2.6 code = 2234) BILIRUBIN, TOTAL <0.2 MG/DL See_Comment [Automated message] (test code = 2206) The syste m which generated this result transmit mika reference range : <=1.2. The refe rence range was not u sed to interpret th is result as normal/abnormal . ALKALINE PHOSPHATASE 120 U/L 40-133 (test code = 2203) AST (test code = 19 U/L 9-40 2217) ALT (test code = 14 U/L 5-40 2218) TSH, THIRD [id number] 00:39:32 Test Item Value Reference Range Interpretation Comments TSH, THIRD 3.630 UIU/ML 0.400-4.100 UNLESS OTHERWI SE GENERATION (test INDICATED, ALL TESTING code = 2821) PERFORMED [facility], [facility]. [address] [place] [id number] [place] [address] JUAN DIRECTOR: Ana STOUT NUMBER [id number] CAP ACCREDITATION N O. [id number]
[2022-08-22 19:35] LABS: Urine Blood Trace-intact (Negative); Urine Glucose Negative (Negative); Urine Protein Negative (Negative); Urine Specific Gravity <=1.005 (1.005-1.030)
[2022-08-22 19:44] LABS: Urine Bacteria <20 /HPF (<20); Urine RBC <5 /HPF (None Seen)
[2022-08-22 20:02] LABS: Absolute Lymphocytes (CBC) 2.2 K/uL (0.7-4.9); Hematocrit 42.5 % (36.0-45.0); Lymphocytes % 32.3 % (15.3-44.8); MCV 84.5 fL (80-100); RBC Red Blood Cell Count 5.03 M/uL (3.86-4.86)
[2022-08-22] MEDS ORDERED: ONDANSETRON 4 MG/2 ML VIAL ONE (20:07)
[2022-08-22] MEDS ORDERED: MORPHINE 4 MG/ML SYR ONE (20:07)
[2022-08-22 20:37] LABS: Bilirubin Total 0.2 mg/dL (0.2-1.0); Protein, Total 8.2 g/dL (6.4-8.2)
[2022-08-22 20:44] LABS: Potassium 4.1 mmol/L (3.5-5.1)
[2022-08-22] MEDS ORDERED: KETOROLAC 30 MG/ML INJ ONE (21:48)
--- NOTE | 2022-08-22 22:16 | RAD REPORT ---
EXAM DESCRIPTION: CTAbdomen Pelvis W Contrast - 08/22/2022 10:10 pm CLINICAL HISTORY: Abdominal pain. abd/flank pain COMPARISON: Abdomen Pelvis W Contrast dated 07/29/2020; Abdomen Pelvis W Contrast dated 07/26/2020 ; Abdomen Pelvis W Contrast dated 04/17/2017; Abdomen Pelvis W Contrast dated 09/02/2016 TECHNIQUE: Biphasic CT imaging of the abdomen and pelvis was performed with 100 ml non-ionic IV cont rast. All CT scans are performed using dose optimization technique as appropriate and may include automated exposure control or mA/KV adjustment according to patient size. FINDINGS: The lung bases are clear.Cholecystectomy. The liver, spleen, pancreas, adrenal glands and kidneys are within normal limits. 24 mm duodenal dive rticulum is present. No bowel obstruction, free air, free fluid or abscess. Colonic diverticulosis without diverticulitis. The appendix is normal. No evidence of significant lymphadenopathy. No suspicious bony findings. IMPRESSION: No acute intra-abdominal or pelvic finding.
[2022-08-22] MEDS ORDERED: LIDOCAINE VISCOUS 2% SOLN 15 ML UDC ONE (22:54)
[2022-08-22] MEDS ORDERED: MAGNES/ALUMIN/SIMET 30ML UCUP ONE (22:55)
[2022-08-22] MEDS ORDERED: FAMOTIDINE 20 MG/2 ML VIAL IV ONE (22:57)
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
--- NOTE | 2022-08-22 23:30 | EDPHYS ---
Physician Documentation [facility] Name: Dahiana Palafox Age: 56 yrs Sex: Female : 1965 Arrival Date: 08/22/2022 Time: 19:06 Bed 11 Private MD: ED Physician Kaleb Flanagan HPI: 08/23 00:14 This 56 yrs old Female presents to ER via Ambulatory with complaints of Flank kb Pain. 00:15 The patient presents with abdominal pain in the right upper quadrant, right lower kb quadrant. Onset: The symptoms/episode began/occurred this morning. The symptoms radiate to the right flank. Associated signs and symptoms: Pertinent positives: nausea, Pertinent negatives: constipation, diarrhea, dysuria, fever, vomiting. The symptoms are described as constant. Modifying factors: The symptoms are alleviated by nothing, the symptoms are aggravated by nothing. Severity of pain: At its worst the pain was moderate in the emergency department the pain is unchanged. The patient has not experienced similar symptoms in the past. The patient has not recently seen a physician. Historical: - Allergies: 08/22 19:20 Codeine; ld1 - PMHx: 19:20 acid reflux; gastric ulcers; GERD; Hyperlipidemia; Hypertension; Thyroid problem; ld1 - PSHx: 19:20 Total abdominal hysterectomy; ld1 - Immunization history:: Adult Immunizations up to date, Client reports receiving the 1st dose of the Covid vaccine. - Social history:: Smoking status: Patient reports the use of cigarette tobacco products, smokes one pack cigarettes per day. Patient/guardian denies using alcohol. ROS: 08/23 00:09 Constitutional: Negative for fever, chills, and weight loss. kb Abdomen/GI: Positive for abdominal pain, Negative for nausea, vomiting, and diarrhea. Back: Positive for flank pain, on the right. All other systems are negative. Exam: 00:09 Constitutional: This is a well developed, well nourished patient who is awake, alert, kb and in no acute distress. Head/Face: Normocephalic, atraumatic. ENT: Moist Mucous membranes Cardiovascular: Regular rate and rhythm with a normal S1 and S2. No gallops, murmurs, or rubs. No pulse deficits. Respiratory: Respirations even and unlabored. No increased work of breathing. Talking in full sentences Skin: Warm, dry with normal turgor. Normal color. MS/ Extremity: Pulses equal, no cyanosis. Neurovascular intact. Full, normal range of motion. Neuro: Awake and alert, GCS 15, oriented to person, place, time, and situation. Moves all extremities. Normal gait. Psych: Awake, alert, with orientation to person, place and time. Behavior, mood, and affect are within normal limits. 00:09 Abdomen/GI: Inspection: abdomen appears normal, Bowel sounds: normal, Palpation: soft, in all quadrants, mild abdominal tenderness, in the right upper quadrant and right lower quadrant. Vital Signs: 08/22 19:19 BP 165 / 93; Pulse 89; Resp 18; Temp 98.1(TE); Pulse Ox 100% on R/A; Weight 62.6 kg; ld1 Height 5 ft. 1 in. (154.94 cm); Pain 9/10; 19:53 BP 128 / 77; Pulse 72; Pulse Ox 100% ; tw5 20:15 BP 143 / 76; Pulse 74; Resp 18; Pulse Ox 96% on R/A; eh3 21:15 BP 135 / 70; Pulse 69; Resp 18; Pulse Ox 98% on R/A; Pain 9/10; eh3 22:15 BP 130 / 74; Pulse 77; Resp 18; Pulse Ox 98% on R/A; Pain 5/10; eh3 23:41 BP 142 / 70; Pulse 77; Resp 18; Pulse Ox 100% on R/A; eh3 19:19 Body Mass Index 26.08 (62.60 kg, 154.94 cm) ld1 MDM: 19:20 Patient medically screened. kb 08/23 00:09 Data reviewed: vital signs, nurses notes. Data interpreted: Pulse oximetry: on room air kb is 100 %. Interpretation: normal. Counseling: I had a detailed discussion with the patient and/or guardian regarding: the historical points, exam findings, and any diagnostic results supporting the discharge/admit diagnosis, lab results, radiology results, the need for outpatient follow up, a family practitioner, to return to the emergency department if symptoms worsen or persist or if there are any questions or concerns that arise at home. 08/22 19: Order name: CBC with Diff; Complete Time: 20:05 kb 08/22 19: Order name: CMP; Complete Time: 20:44 kb 08/22 19:20 Order name: Lipase; Complete Time: 20:44 kb 08/22 19:20 Order name: Urine Microscopic Only; Complete Time: 20:02 kb 08/22 19:35 Order name: Urine Dipstick-Ancillary; Complete Time: 20:02 EDMS 08/22 21:50 Order name: CT Abd/Pelvis - IV Contrast Only; Complete Time: 22:18 kb 08/22 19:20 Order name: IV Saline Lock; Complete Time: 19:55 kb 08/22 19:20 Order name: Labs collected and sent; Complete Time: 19:55 kb 08/22 19:20 Order name: Urine Dipstick-Ancillary (obtain specimen); Complete Time: 19:55 kb Administered Medications: 08/22 20:08 Drug: morphine 4 mg Route: IVP; Infused Over: 4 mins; Site: left antecubital; eh3 20:53 Follow up: Response: Pain is unchanged, physician notified eh3 20:08 Drug: Zofran (Ondansetron) 4 mg Route: IVP; Site: left antecubital; eh3 20:53 Follow up: Response: Nausea unchanged eh3 21:44 Drug: Ketorolac 15 mg Route: IVP; Site: left antecubital; eh3 22:26 Follow up: Response: Pain is decreased eh3 22:54 Drug: Pepcid (famotidine) 20 mg Route: IVP; Site: left antecubital; eh3 23:52 Follow up: Response: Pain is decreased eh3 22:54 Drug: GI Cocktail without - (Maalox Suspension 30 ml, Lidocaine Liquid 2 % 15 eh3 ml) Route: PO; 23:52 Follow up: Response: Pain is decreased eh3 Disposition: 08/23 08:24 Co-signature as Attending Physician, Kaleb Flanagan MD. rn Disposition Summary: 08/22/22 23:30 Discharge Ordered Location: Home kb Condition: Stable kb Diagnosis - Abdominal pain, Generalized kb Followup: kb - With: Emergency Department - When: As needed - Reason: Worsening of condition Followup: kb - With: Private Physician - When: 2 - 3 days - Reason: Recheck today's complaints, Continuance of care, Re-evaluation by your physician Discharge Instructions: - Discharge Summary Sheet kb - Abdominal Pain, Adult, [id number] kb Forms: - Medication Reconciliation Form kb - Thank You Letter kb - Antibiotic Education kb - Prescription Opioid Use kb Prescriptions: - Protonix 40 mg Oral Tablet - take 1 tablet by ORAL route once daily; 30 tablet; Refills: 0, Product kb Selection Permitted - dicyclomine 20 mg Oral Tablet - take 1 tablet by ORAL route 4 times per day As needed; 20 tablet; Refills: 0, kb Product Selection Permitted Signatures: Dispatcher [employer] Sarah Guevara, ANAHI-C TRANSFER ENGINEER-Kaleb Guevara MD MD rn Dibbern, Lauren RN RN ld1 Parul Cassidy tw5 Cnithia Moreira RN RN eh3
[2022-08-24 15:29] VITALS: TEMP 98.1
[2022-08-24 15:41] VITALS: BP 142/70; O2SAT 100
== END 2022-08-22 23:53 | disposition home or self-care (01) ==
LOC: ER 19:02
DX: R10.84 Generalized abdominal pain (principal); R11.0 Nausea; F17.210 Nicotine dependence, cigarettes, uncomplicated; Z88.5 Allergy status to narcotic agent
CPT/HCPCS: 36415; 74177; 80053; 81003; 81015; 83690; 85025; 96374; 96375; 99284; J2405

== ENCOUNTER 2024-04-13 18:55 | Emergency (ER) | payer OTHER, SELFPAY ==
--- OUTSIDE RECORDS SUMMARY | 2024-04-13 19:03 | XMS REPORT | Continuity of Care Document ---
Author Name Unknown Address [address] [facility]. [address] [place] [address] [facility] thconnect Address [address] [facility]. 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 Ordering Clinician Indication Dosage Frequency Signature (SIG) Comments Components Source TAKE 2 TABLETS ON DAY 1 THEN TAKE 1 TABLET A DAY FOR 4 DAYS. 2021-11 2- 00:00: 00 No 1 CAPSULE EVERY 8 HOURS NEEDED FOR COUGH 2021-11 2- 00:00: 00 No Dose Unknown 2021-11 2 00:00: 00 No Dose Unknown 2021-11 2- 00:00: 00 No Dose Unknown 2021-11 2- 00:00: 00 No lisinopril 10 mg tablet 05-31 00:00: 00 No 1mg pravastatin 20 mg tablet 05-31 00:00: 00 No 1mg Protonix 40 mg tablet,lui sdaniel yed release 05-31 00:00: 00 No 1mg levothyroxi ne 75 mcg tablet 05-31 00:00: 00 No 1mcg lisinopril 10 mg tablet 05-31 00:00: 00 No 1mg Dose Unknown 05-31 00:00: 00 No Dose Unknown 05-31 00:00: 00 No levothyroxi ne 75 mcg tablet 05-31 00:00: 00 No 1mcg Dose Unknown 05-31 00:00: 00 No Dose Unknown 05-31 00:00: 00 No Dose Unknown 0 - 00:00: 00 No Dose Unknown 0 05-31 00:00: 00 No Dose Unknown 0 -19 00:00: 00 No Dose Unknown 0 19 00:00: 00 No Dose Unknown 0 19 00:00: 00 No Vitamin D3 25 mcg (1,000 unit) capsule 0 -16 00:00: 00 No 1(1,000 unit) Dose Unknown 0 16 00:00: 00 No Vitamin D3 25 mcg (1,000 unit) capsule 0 16 00:00: 00 No 1(1,000 unit) Dose Unknown 0 16 00:00: 00 No Dose Unknown 0 16 00:00: 00 No Dose Unknown 0 16 00:00: 00 No erythromyci n 5 mg/gram (0.5 %) eye ointment 0 12 00:00: 00 No 1(0.5 %) erythromyci n 5 mg/gram (0.5 %) eye ointment 0 12 00:00: 00 No 1(0.5 %) Dose Unknown 0 12 00:00: 00 No levothyroxi ne 75 mcg tablet 0 -12 00:00: 00 No 1mcg levothyroxi ne 75 mcg tablet 0 -12 00:00: 00 No 1mcg levothyroxi ne 75 mcg tablet 0 -12 00:00: 00 No 1mcg lisinopril 10 mg tablet 0 -08 00:00: 00 No 1mg pravastatin 20 mg tablet 0 -08 00:00: 00 No 1mg Protonix 40 mg tablet,luis daniel yed release 0 - 00:00: 00 No 1mg lisinopril 10 mg tablet 0 - 00:00: 00 No 1mg pravastatin 20 mg tablet 0 -08 00:00: 00 No 1mg Protonix 40 mg tablet,luis daniel yed release 0 - 00:00: 00 No 1mg lisinopril 10 mg tablet 1-08 00:00: 00 No 1mg pravastatin 20 mg tablet 1-08 00:00: 00 No 1mg Protonix 40 mg tablet,luis daniel yed release - 00:00: 00 No 1mg amoxicillin 875 mg-potassiu m clavulanate 125 mg tablet 2020-11 2- 00:00: 00 No 1mg prednisone 20 mg tablet 2020-11 2 00:00: 00 No 1mg benzonatate 200 mg capsule 2020-11 2- 00:00: 00 No 1mg Bromfed DM 2 mg-30 mg-10 mg/5 mL oral syrup 2020-11 00:00: 00 No 5mg/5 mL amoxicillin 875 mg-potassiu m clavulanate 125 mg tablet 2020-11 2 00:00: 00 No 1mg prednisone 20 mg tablet 2020-11 2- 00:00: 00 No 1mg benzonatate 200 mg capsule 2020-11 2 00:00: 00 No 1mg Bromfed DM 2 mg-30 mg-10 mg/5 mL oral syrup 2020-11 2 00:00: 00 No 5mg/5 mL amoxicillin 875 mg-potassiu m clavulanate 125 mg tablet 2020-11 2 00:00: 00 No 1mg prednisone 20 mg tablet 2020-11 2 00:00: 00 No 1mg benzonatate 200 mg capsule 2020-11 2 00:00: 00 No 1mg Bromfed DM 2 mg-30 mg-10 mg/5 mL oral syrup 2020-11 00:00: 00 No 5mg/5 mL levothyroxi ne 75 mcg tablet 07-22 00:00: 00 No 1mcg levothyroxi ne 75 mcg tablet 07-22 00:00: 00 No 1mcg levothyroxi ne 75 mcg tablet 07-22 00:00: 00 No 1mcg Protonix 40 mg tablet,luis daniel yed release 07-20 00:00: 00 No 1mg lisinopril 10 mg tablet 2021-0 8-21 00:00: 00 No 1mg pravastatin 20 mg tablet 0 8-21 00:00: 00 No 1mg lisinopril 10 mg tablet 0 8-21 00:00: 00 No 1mg pravastatin 20 mg tablet 0 8-21 00:00: 00 No 1mg Protonix 40 mg tablet,luis daniel yed release 0 8-21 00:00: 00 No 1mg lisinopril 10 mg tablet 0 8-21 00:00: 00 No 1mg pravastatin 20 mg tablet 0 8-21 00:00: 00 No 1mg Protonix 40 mg tablet,luis daniel yed release 0 8-21 00:00: 00 No 1mg lisinopril 10 mg tablet 0 6-14 00:00: 00 No 1mg Protonix 20 mg tablet,luis daniel yed release 0 6-14 00:00: 00 No 1mg lisinopril 10 mg tablet 0 6-14 00:00: 00 No 1mg Protonix 20 mg tablet,luis daniel yed release 0 6-14 00:00: 00 No 1mg lisinopril 10 mg tablet 0 6-14 00:00: 00 No 1mg Protonix 20 mg tablet,luis daniel yed release 0 6-14 00:00: 00 No 1mg levothyroxi ne 75 mcg tablet 0 3-24 00:00: 00 No 1mcg levothyroxi ne 75 mcg tablet 0 3-24 00:00: 00 No 1mcg levothyroxi ne 75 mcg tablet 0 3-24 00:00: 00 No 1mcg lisinopril 10 mg tablet 0 3-20 00:00: 00 No 1mg pravastatin 20 mg tablet 0 3-20 00:00: 00 No 1mg Protonix 20 mg tablet,luis daniel yed release 0 3-20 00:00: 00 No 1mg lisinopril 10 mg tablet 0 3-20 00:00: 00 No 1mg pravastatin 20 mg tablet 0 3-20 00:00: 00 No 1mg Protonix 20 mg tablet,luis daniel yed release 3-20 00:00: 00 No 1mg lisinopril 10 mg tablet 0 3-20 00:00: 00 No 1mg pravastatin 20 mg tablet 3-20 00:00: 00 No 1mg Protonix 20 mg tablet,luis daniel yed release 3-20 00:00: 00 No 1mg lisinopril 10 mg tablet 2019-11 2- 00:00: 00 No 1mg pravastatin 20 mg tablet 2019-11- 00:00: 00 No 1mg amoxicillin 875 mg tablet 2019-11- 00:00: 00 No 1mg levothyroxi ne 75 mcg tablet 2019-11- 00:00: 00 No 1mcg lisinopril 10 mg tablet 2019-11 00:00: 00 No 1mg pravastatin 20 mg tablet 2019-11 00:00: 00 No 1mg amoxicillin 875 mg tablet 2019-11- 00:00: 00 No 1mg levothyroxi ne 75 mcg tablet 2019-11 00:00: 00 No 1mcg lisinopril 10 mg tablet 2019-11 00:00: 00 No 1mg pravastatin 20 mg tablet 2019-11- 00:00: 00 No 1mg amoxicillin 875 mg tablet 2019-11 00:00: 00 No 1mg levothyroxi ne 75 mcg tablet 2019-11 00:00: 00 No 1mcg lisinopril 10 mg tablet 08-04 00:00: 00 No 1mg pravastatin 20 mg tablet 08-04 00:00: 00 No 1mg levothyroxi ne 75 mcg tablet 08-04 00:00: 00 No 1mcg lisinopril 10 mg tablet 08-04 00:00: 00 No 1mg pravastatin 20 mg tablet 08-04 00:00: 00 No 1mg levothyroxi ne 75 mcg tablet 08-04 00:00: 00 No 1mcg lisinopril 10 mg tablet 08-04 00:00: 00 No 1mg pravastatin 20 mg tablet 08-04 00:00: 00 No 1mg levothyroxi ne 75 mcg tablet 08-04 00:00: 00 No 1mcg levothyroxi ne 75 mcg tablet 06-05 00:00: 00 No 1mcg levothyroxi ne 75 mcg tablet 06-05 00:00: 00 No 1mcg levothyroxi ne 75 mcg tablet 06-05 00:00: 00 No 1mcg levothyroxi ne 75 mcg tablet 05-29 00:00: 00 No 1mcg levothyroxi ne 75 mcg tablet 05-29 00:00: 00 No 1mcg levothyroxi ne 75 mcg tablet 05-29 00:00: 00 No 1mcg lisinopril 10 mg tablet 314 00:00: 00 No 1mg pravastatin 20 mg tablet 314 00:00: 00 No 1mg lisinopril 10 mg tablet 314 00:00: 00 No 1mg pravastatin 20 mg tablet 314 00:00: 00 No 1mg lisinopril 10 mg tablet 314 00:00: 00 No 1mg pravastatin 20 mg tablet 314 00:00: 00 No 1mg lisinopril 10 mg tablet 2018-11 00:00: 00 No 1mg Tricor 145 mg tablet 2018-11 00:00: 00 No 1mg lisinopril 10 mg tablet 2018-11 00:00: 00 No 1mg Tricor 145 mg tablet 2018-11 00:00: 00 No 1mg lisinopril 10 mg tablet 2018-11 00:00: 00 No 1mg Tricor 145 mg tablet 2018-11 00:00: 00 No 1mg levothyroxi ne 75 mcg tablet 2018-11 00:00: 00 No 1mcg levothyroxi ne 75 mcg tablet 2018-11 00:00: 00 No 1mcg levothyroxi ne 75 mcg tablet 2018-11 00:00: 00 No 1mcg Medrol (Gerson) 4 mg tablets in a dose pack 08-09 00:00: 00 No 1mg levothyroxi ne 75 mcg tablet 08-09 00:00: 00 No 1mcg esomeprazol e magnesium 40 mg capsule,del ayed release 08-09 00:00: 00 No 1mg Medrol (Gerson) 4 mg tablets in a dose pack 08-09 00:00: 00 No 1mg levothyroxi ne 75 mcg tablet 08-09 00:00: 00 No 1mcg esomeprazol e magnesium 40 mg capsule,del ayed release 08-09 00:00: 00 No 1mg Medrol (Gerson) 4 mg tablets in a dose pack 08-09 00:00: 00 No 1mg levothyroxi ne 75 mcg tablet 08-09 00:00: 00 No 1mcg esomeprazol e magnesium 40 mg capsule,del ayed release 08-09 00:00: 00 No 1mg levothyroxi ne 75 mcg tablet 07-04 00:00: 00 No 1mcg levothyroxi ne 75 mcg tablet 07-04 00:00: 00 No 1mcg levothyroxi ne 75 mcg tablet 07-04 00:00: 00 No 1mcg Medrol (Gerson) 4 mg tablets in a dose pack 07-02 00:00: 00 No 1mg Medrol (Gerson) 4 mg tablets in a dose pack 07-02 00:00: 00 No 1mg Medrol (Gerson) 4 mg tablets in a dose pack 07-02 00:00: 00 No 1mg levothyroxi ne 75 mcg tablet 06-23 00:00: 00 No 1mcg levothyroxi ne 75 mcg tablet 06-23 00:00: 00 No 1mcg levothyroxi ne 75 mcg tablet 06-23 00:00: 00 No 1mcg levothyroxi ne 75 mcg tablet 04-11 00:00: 00 No 1mcg levothyroxi ne 75 mcg tablet 04-11 00:00: 00 No 1mcg levothyroxi ne 75 mcg tablet 04-11 00:00: 00 No 1mcg Tricor 145 mg tablet 04-09 00:00: 00 No 1mg lisinopril 10 mg tablet 04-09 00:00: 00 No 1mg Medrol (Gerson) 4 mg tablets in a dose pack 04-09 00:00: 00 No 1mg levothyroxi ne 50 mcg tablet 04-09 00:00: 00 No 1mcg Tricor 145 mg tablet 04-09 00:00: 00 No 1mg lisinopril 10 mg tablet 04-09 00:00: 00 No 1mg Medrol (Gerson) 4 mg tablets in a dose pack 04-09 00:00: 00 No 1mg levothyroxi ne 50 mcg tablet 04-09 00:00: 00 No 1mcg Tricor 145 mg tablet 04-09 00:00: 00 No 1mg lisinopril 10 mg tablet 04-09 00:00: 00 No 1mg Medrol (Gerson) 4 mg tablets in a dose pack 04-09 00:00: 00 No 1mg levothyroxi ne 50 mcg tablet 04-09 00:00: 00 No 1mcg levothyroxi ne 50 mcg tablet 03-17 00:00: 00 No 1mcg levothyroxi ne 50 mcg tablet 03-17 00:00: 00 No 1mcg levothyroxi ne 50 mcg tablet 03-17 00:00: 00 No 1mcg Tricor 145 mg tablet 01-22 00:00: 00 No 1mg lisinopril 20 mg tablet 01-22 00:00: 00 No 1mg levothyroxi ne 50 mcg tablet 01-22 00:00: 00 No 1mcg Tricor 145 mg tablet 01-22 00:00: 00 No 1mg lisinopril 20 mg tablet 01-22 00:00: 00 No 1mg levothyroxi ne 50 mcg tablet 01-22 00:00: 00 No 1mcg Tricor 145 mg tablet 01-22 00:00: 00 No 1mg lisinopril 20 mg tablet 01-22 00:00: 00 No 1mg levothyroxi ne 50 mcg tablet 01-22 00:00: 00 No 1mcg levothyroxi ne 50 mcg tablet 01-13 00:00: 00 No 1mcg levothyroxi ne 50 mcg tablet 01-13 00:00: 00 No 1mcg levothyroxi ne 50 mcg tablet 01-13 00:00: 00 No 1mcg Tricor 145 mg tablet 2017-11 00:00: 00 No 1mg Tricor 145 mg tablet 2017-11 00:00: 00 No 1mg Tricor 145 mg tablet 2017-11 00:00: 00 No 1mg lisinopril 20 mg tablet 2017-11 00:00: 00 No 1mg levothyroxi ne 50 mcg tablet 2017-11 00:00: 00 No 1mcg lisinopril 20 mg tablet 2017-11 00:00: 00 No 1mg levothyroxi ne 50 mcg tablet 2017-11 00:00: 00 No 1mcg lisinopril 20 mg tablet 2017-11 00:00: 00 No 1mg levothyroxi ne 50 mcg tablet 2017-11 00:00: 00 No 1mcg lisinopril 20 mg tablet 06-19 00:00: 00 No 1mg Crestor 20 mg tablet 06-19 00:00: 00 No 1mg levothyroxi ne 50 mcg tablet 06-19 00:00: 00 No 1mcg lisinopril 20 mg tablet 06-19 00:00: 00 No 1mg Crestor 20 mg tablet 06-19 00:00: 00 No 1mg levothyroxi ne 50 mcg tablet 06-19 00:00: 00 No 1mcg lisinopril 20 mg tablet 06-19 00:00: 00 No 1mg Crestor 20 mg tablet 06-19 00:00: 00 No 1mg levothyroxi ne 50 mcg tablet 06-19 00:00: 00 No 1mcg lisinopril 20 mg tablet 06-11 00:00: 00 No 1mg Crestor 20 mg tablet 06-11 00:00: 00 No 1mg lisinopril 20 mg tablet 06-11 00:00: 00 No 1mg Crestor 20 mg tablet 06-11 00:00: 00 No 1mg lisinopril 20 mg tablet 06-11 00:00: 00 No 1mg Crestor 20 mg tablet 06-11 00:00: 00 No 1mg lisinopril 20 mg tablet 05-06 00:00: 00 No 1mg Crestor 20 mg tablet 05-06 00:00: 00 No 1mg lisinopril 20 mg tablet 05-06 00:00: 00 No 1mg Crestor 20 mg tablet 05-06 00:00: 00 No 1mg lisinopril 20 mg tablet 05-06 00:00: 00 No 1mg Crestor 20 mg tablet 05-06 00:00: 00 No 1mg Levaquin 500 mg tablet 03-20 00:00: 00 No 1mg Crestor 20 mg tablet 03-20 00:00: 00 No 1mg Levaquin 500 mg tablet 03-20 00:00: 00 No 1mg Crestor 20 mg tablet 03-20 00:00: 00 No 1mg Levaquin 500 mg tablet 03-20 00:00: 00 No 1mg Crestor 20 mg tablet 03-20 00:00: 00 No 1mg levothyroxi ne 50 mcg tablet 02-09 00:00: 00 No 1mcg levothyroxi ne 50 mcg tablet 02-09 00:00: 00 No 1mcg levothyroxi ne 50 mcg tablet 02-09 00:00: 00 No 1mcg lisinopril 20 mg tablet 02-06 00:00: 00 No 1mg lisinopril 20 mg tablet 02-06 00:00: 00 No 1mg lisinopril 20 mg tablet 02-06 00:00: 00 No 1mg lisinopril 20 mg tablet 01-26 00:00: 00 No 1mg lisinopril 20 mg tablet 01-26 00:00: 00 No 1mg lisinopril 20 mg tablet 01-26 00:00: 00 No 1mg lovastatin 20 mg tablet 2016-11 00:00: 00 No 1mg Crestor 20 mg tablet 2016-11 00:00: 00 No 1mg lovastatin 20 mg tablet 2016-11 00:00: 00 No 1mg Crestor 20 mg tablet 2016-11 00:00: 00 No 1mg lovastatin 20 mg tablet 2016-11 00:00: 00 No 1mg Crestor 20 mg tablet 2016-11 00:00: 00 No 1mg lisinopril 20 mg tablet 2016-11 00:00: 00 No 1mg lovastatin 20 mg tablet 2016-11 00:00: 00 No 1mg levothyroxi ne 50 mcg tablet 2016-11 00:00: 00 No 1mcg lisinopril 20 mg tablet 2016-11 00:00: 00 No 1mg lovastatin 20 mg tablet 2016-11 00:00: 00 No 1mg levothyroxi ne 50 mcg tablet 2016-11 00:00: 00 No 1mcg lisinopril 20 mg tablet 2016-11 00:00: 00 No 1mg lovastatin 20 mg tablet 2016-11 00:00: 00 No 1mg levothyroxi ne 50 mcg tablet 2016-11 00:00: 00 No 1mcg lisinopril 20 mg-hydrochl orothiazide 12.5 mg tablet 2016-11 00:00: 00 No 1mg levothyroxi ne 50 mcg tablet 2016-11 00:00: 00 No 1mcg lisinopril 20 mg-hydrochl orothiazide 12.5 mg tablet 2016-11 00:00: 00 No 1mg levothyroxi ne 50 mcg tablet 2016-11 00:00: 00 No 1mcg lisinopril 20 mg-hydrochl orothiazide 12.5 mg tablet 2016-11 00:00: 00 No 1mg levothyroxi ne 50 mcg tablet 2016-11 00:00: 00 No 1mcg gemfibrozil 600 mg tablet 07-16 00:00: 00 No 1mg levothyroxi ne 50 mcg tablet 07-16 00:00: 00 No 1mcg gemfibrozil 600 mg tablet 07-16 00:00: 00 No 1mg levothyroxi ne 50 mcg tablet 07-16 00:00: 00 No 1mcg gemfibrozil 600 mg tablet 07-16 00:00: 00 No 1mg levothyroxi ne 50 mcg tablet 07-16 00:00: 00 No 1mcg pravastatin 40 mg tablet 07-14 00:00: 00 No 1mg lisinopril 20 mg-hydrochl orothiazide 12.5 mg tablet 07-14 00:00: 00 No 1mg pravastatin 40 mg tablet 07-14 00:00: 00 No 1mg lisinopril 20 mg-hydrochl orothiazide 12.5 mg tablet 07-14 00:00: 00 No 1mg pravastatin 40 mg tablet 07-14 00:00: 00 No 1mg lisinopril 20 mg-hydrochl orothiazide 12.5 mg tablet 07-14 00:00: 00 No 1mg pravastatin 40 mg tablet 03-27 00:00: 00 No 1mg levothyroxi ne 50 mcg tablet 03-27 00:00: 00 No 1mcg pravastatin 40 mg tablet 03-27 00:00: 00 No 1mg levothyroxi ne 50 mcg tablet 03-27 00:00: 00 No 1mcg pravastatin 40 mg tablet 03-27 00:00: 00 No 1mg levothyroxi ne 50 mcg tablet 03-27 00:00: 00 No 1mcg lisinopril 20 mg-hydrochl orothiazide 12.5 mg tablet 03-17 00:00: 00 No 1mg lisinopril 20 mg-hydrochl orothiazide 12.5 mg tablet 03-17 00:00: 00 No 1mg lisinopril 20 mg-hydrochl orothiazide 12.5 mg tablet 03-17 00:00: 00 No 1mg lisinopril 20 mg-hydrochl orothiazide 12.5 mg tablet 03-10 00:00: 00 No 1mg pravastatin 20 mg tablet 03-10 00:00: 00 No 1mg levothyroxi ne 50 mcg tablet 03-10 00:00: 00 No 1mcg lisinopril 20 mg-hydrochl orothiazide 12.5 mg tablet 03-10 00:00: 00 No 1mg pravastatin 20 mg tablet 03-10 00:00: 00 No 1mg levothyroxi ne 50 mcg tablet 03-10 00:00: 00 No 1mcg lisinopril 20 mg-hydrochl orothiazide 12.5 mg tablet 03-10 00:00: 00 No 1mg pravastatin 20 mg tablet 03-10 00:00: 00 No 1mg levothyroxi ne 50 mcg tablet 03-10 00:00: 00 No 1mcg pravastatin 20 mg tablet 2015-11 00:00: 00 No 1mg lisinopril 20 mg-hydrochl orothiazide 12.5 mg tablet 2015-11 00:00: 00 No 1mg levothyroxi ne 50 mcg tablet 2015-11 00:00: 00 No 1mcg pravastatin 20 mg tablet 2015-11 00:00: 00 No 1mg lisinopril 20 mg-hydrochl orothiazide 12.5 mg tablet 2015-11 00:00: 00 No 1mg levothyroxi ne 50 mcg tablet 2015-11 00:00: 00 No 1mcg pravastatin 20 mg tablet 2015-11 00:00: 00 No 1mg lisinopril 20 mg-hydrochl orothiazide 12.5 mg tablet 2015-11 00:00: 00 No 1mg levothyroxi ne 50 mcg tablet 2015-11 00:00: 00 No 1mcg lisinopril 20 mg-hydrochl orothiazide 12.5 mg tablet 07-22 00:00: 00 No 1mg pravastatin 20 mg tablet 07-22 00:00: 00 No 1mg levothyroxi ne 50 mcg tablet 07-22 00:00: 00 No 1mcg lisinopril 20 mg-hydrochl orothiazide 12.5 mg tablet 07-22 00:00: 00 No 1mg pravastatin 20 mg tablet 07-22 00:00: 00 No 1mg levothyroxi ne 50 mcg tablet 07-22 00:00: 00 No 1mcg lisinopril 20 mg-hydrochl orothiazide 12.5 mg tablet 07-22 00:00: 00 No 1mg pravastatin 20 mg tablet 07-22 00:00: 00 No 1mg levothyroxi ne 50 mcg tablet 07-22 00:00: 00 No 1mcg omeprazole 20 mg capsule,del ayed release 05-14 00:00: 00 No 1mg omeprazole 20 mg capsule,del ayed release 05-14 00:00: 00 No 1mg omeprazole 20 mg capsule,del ayed release 05-14 00:00: 00 No 1mg ranitidine 150 mg capsule 04-24 00:00: 00 No 1mg ranitidine 150 mg capsule 04-24 00:00: 00 No 1mg ranitidine 150 mg capsule 04-24 00:00: 00 No 1mg amoxicillin 500 mg tablet 04-18 00:00: 00 No 2mg clarithromy carley 500 mg tablet 04-18 00:00: 00 No 1mg omeprazole 20 mg capsule,del ayed release 04-18 00:00: 00 No 1mg amoxicillin 500 mg tablet 04-18 00:00: 00 No 2mg clarithromy carley 500 mg tablet 04-18 00:00: 00 No 1mg omeprazole 20 mg capsule,del ayed release 04-18 00:00: 00 No 1mg amoxicillin 500 mg tablet 04-18 00:00: 00 No 2mg clarithromy carley 500 mg tablet 04-18 00:00: 00 No 1mg omeprazole 20 mg capsule,del ayed release 04-18 00:00: 00 No 1mg lisinopril 20 mg-hydrochl orothiazide 12.5 mg tablet 07-30 00:00: 00 No 1mg lisinopril 20 mg-hydrochl orothiazide 12.5 mg tablet 07-30 00:00: 00 No 1mg lisinopril 20 mg-hydrochl orothiazide 12.5 mg tablet 07-30 00:00: 00 No 1mg pravastatin 20 mg tablet 07-04 00:00: 00 No 1mg levothyroxi ne 50 mcg tablet 07-04 00:00: 00 No 1mcg pravastatin 20 mg tablet 07-04 00:00: 00 No 1mg levothyroxi ne 50 mcg tablet 07-04 00:00: 00 No 1mcg pravastatin 20 mg tablet 07-04 00:00: 00 No 1mg levothyroxi ne 50 mcg tablet 07-04 00:00: 00 No 1mcg lisinopril 20 mg-hydrochl orothiazide 12.5 mg tablet 06-29 00:00: 00 No 1mg lisinopril 20 mg-hydrochl orothiazide 12.5 mg tablet 06-29 00:00: 00 No 1mg lisinopril 20 mg-hydrochl orothiazide 12.5 mg tablet 06-29 00:00: 00 No 1mg pravastatin 20 mg tablet 05-08 00:00: 00 No 1mg levothyroxi ne 50 mcg tablet 05-08 00:00: 00 No 1mcg pravastatin 20 mg tablet 05-08 00:00: 00 No 1mg levothyroxi ne 50 mcg tablet 05-08 00:00: 00 No 1mcg pravastatin 20 mg tablet 05-08 00:00: 00 No 1mg levothyroxi ne 50 mcg tablet 05-08 00:00: 00 No 1mcg levothyroxi ne 50 mcg tablet 03-08 00:00: 00 No 1mcg levothyroxi ne 50 mcg tablet 03-08 00:00: 00 No 1mcg levothyroxi ne 50 mcg tablet 03-08 00:00: 00 No 1mcg pravastatin 20 mg tablet 03-01 00:00: 00 No 1mg lisinopril 20 mg-hydrochl orothiazide 12.5 mg tablet 03-01 00:00: 00 No 1mg naproxen 500 mg tablet 03-01 00:00: 00 No 1mg tramadol 37.5 mg-acetamin ophen 325 mg tablet 03-01 00:00: 00 No 1mg levothyroxi ne 50 mcg tablet 03-01 00:00: 00 No 1mcg pravastatin 20 mg tablet 03-01 00:00: 00 No 1mg lisinopril 20 mg-hydrochl orothiazide 12.5 mg tablet 03-01 00:00: 00 No 1mg naproxen 500 mg tablet 03-01 00:00: 00 No 1mg tramadol 37.5 mg-acetamin ophen 325 mg tablet 03-01 00:00: 00 No 1mg levothyroxi ne 50 mcg tablet 03-01 00:00: 00 No 1mcg pravastatin 20 mg tablet 03-01 00:00: 00 No 1mg lisinopril 20 mg-hydrochl orothiazide 12.5 mg tablet 03-01 00:00: 00 No 1mg naproxen 500 mg tablet 03-01 00:00: 00 No 1mg tramadol 37.5 mg-acetamin ophen 325 mg tablet 03-01 00:00: 00 No 1mg levothyroxi ne 50 mcg tablet 03-01 00:00: 00 No 1mcg Vital Signs Vital Name Observation Time Observation Value Comments S ource BP Systolic 2022-11-13 09:00:00 117 mm[Hg] BP Diastolic 2022-11-13 09:00:00 66 mm[Hg] Weight Measured 2022-11-13 09:00:00 139.60 pounds Height Measured 2022-11-13 09:00:00 61.00 inches Body Temperature 2022-11-13 09:00:00 98.20 degrees Heart Rate 2022-11-13 09:00:00 89.00 /min Respiratory Rate 2022-11-13 09:00:00 24.00 /min BP Systolic 2022-10-27 17:23:00 130 mm[Hg] BP Diastolic 2022-10-27 17:23:00 79 mm[Hg] Weight Measured 2022-10-27 17:23:00 142.00 pounds Height Measured 2022-10-27 17:23:00 61.00 inches Body Temperature 2022-10-27 17:23:00 97.50 degrees Heart Rate 2022-10-27 17:23:00 88.00 /min Respiratory Rate 2022-10-27 17:23:00 18.00 /min BP Systolic 2022-05-31 15:53:00 131 mm[Hg] BP Diastolic 2022-05-31 15:53:00 82 mm[Hg] Weight Measured 2022-05-31 15:53:00 144.20 pounds Height Measured 2022-05-31 15:53:00 61.00 inches Body Temperature 2022-05-31 15:53:00 98.70 degrees Heart Rate 2022-05-31 15:53:00 78.00 /min Respiratory Rate 2022-05-31 15:53:00 BP Systolic 2022-03-11 17:03:00 128 mm[Hg] BP Diastolic 2022-03-11 17:03:00 77 mm[Hg] Weight Measured 2022-03-11 17:03:00 147.60 pounds Height Measured 2022-03-11 17:03:00 61.00 inches Body Temperature 2022-03-11 17:03:00 97.50 degrees Heart Rate 2022-03-11 17:03:00 91.00 /min Respiratory Rate 2022-03-11 17:03:00 BP Systolic 2022-01-21 13:09:00 120 mm[Hg] BP Diastolic 2022-01-21 13:09:00 73 mm[Hg] Weight Measured 2022-01-21 13:09:00 144.80 pounds Height Measured 2022-01-21 13:09:00 61.00 inches Body Temperature 2022-01-21 13:09:00 98.00 degrees Heart Rate 2022-01-21 13:09:00 85.00 /min Respiratory Rate 2022-01-21 13:09:00 BP Systolic 2021-12-07 08:48:00 131 mm[Hg] BP Diastolic 2021-12-07 08:48:00 77 mm[Hg] Weight Measured 2021-12-07 08:48:00 141.40 pounds Height Measured 2021-12-07 08:48:00 61.00 inches Body Temperature 2021-12-07 08:48:00 98.40 degrees Heart Rate 2021-12-07 08:48:00 60.00 /min Respiratory Rate 2021-12-07 08:48:00 BP Systolic 2021-07-20 08:23:00 105 mm[Hg] BP Diastolic 2021-07-20 08:23:00 66 mm[Hg] Weight Measured 2021-07-20 08:23:00 138.60 pounds Height Measured 2021-07-20 08:23:00 61.00 inches Body Temperature 2021-07-20 08:23:00 98.30 degrees Heart Rate 2021-07-20 08:23:00 70.00 /min Respiratory Rate 2021-07-20 08:23:00 16.00 /min BP Systolic 2020-08-04 09:10:00 BP Diastolic 2020-08-04 09:10:00 Weight Measured 2020-08-04 09:10:00 143.00 pounds Height Measured 2020-08-04 09:10:00 62.00 inches Body Temperature 2020-08-04 09:10:00 Heart Rate 2020-08-04 09:10:00 Respiratory Rate 2020-08-04 09:10:00 BP Systolic 2020-06-04 16:12:00 120 mm[Hg] BP Diastolic 2020-06-04 16:12:00 75 mm[Hg] Weight Measured 2020-06-04 16:12:00 142.60 pounds Height Measured 2020-06-04 16:12:00 62.00 inches Body Temperature 2020-06-04 16:12:00 98.40 degrees Heart Rate 2020-06-04 16:12:00 96.00 /min Respiratory Rate 2020-06-04 16:12:00 16.00 /min Body Temperature 2020-02-11 09:00:00 98.00 degrees Heart Rate 2020-02-11 09:00:00 83.00 /min Respiratory Rate 2020-02-11 09:00:00 16.00 /min BP Systolic 2020-02-11 09:00:00 130 mm[Hg] BP Diastolic 2020-02-11 09:00:00 80 mm[Hg] Weight Measured 2020-02-11 09:00:00 146.40 pounds Height Measured 2020-02-11 09:00:00 62.00 inches BP Systolic 2019-10-10 11:13:00 131 mm[Hg] BP Diastolic 2019-10-10 11:13:00 83 mm[Hg] Weight Measured 2019-10-10 11:13:00 144.00 pounds Height Measured 2019-10-10 11:13:00 62.00 inches Body Temperature 2019-10-10 11:13:00 98.50 degrees Heart Rate 2019-10-10 11:13:00 81.00 /min Respiratory Rate 2019-10-10 11:13:00 16.00 /min BP Systolic 2019-07-02 08:33:00 123 mm[Hg] BP Diastolic 2019-07-02 08:33:00 74 mm[Hg] Weight Measured 2019-07-02 08:33:00 142.00 pounds Height Measured 2019-07-02 08:33:00 62.00 inches Body Temperature 2019-07-02 08:33:00 97.70 degrees Heart Rate 2019-07-02 08:33:00 82.00 /min Respiratory Rate 2019-07-02 08:33:00 16.00 /min Plan of Care Planned Activity Planned Date Details Comments Source Goal Plan of Care Note [code = 94198-1] Goal Plan of Care Note [code = 93852-2] Goal Plan of Care Note [code = 37332-0] Goal Plan of Care Note [code = 35170-8] Goal Plan of Care Note [code = 33248-7] Goal Plan of Care Note [code = 77004-1] Goal Plan of Care Note [code = 41550-3] Goal Plan of Care Note [code = 74940-2] Goal Plan of Care Note [code = 05931-2] Goal Plan of Care Note [code = 58945-1] Goal Plan of Care Note [code = 40907-5] Goal Plan of Care Note [code = 48242-1] Goal Plan of Care Note [code = 09201-2] Goal Plan of Care Note [code = 57508-0] Goal Plan of Care Note [code = 32363-1] Goal Plan of Care Note [code = 07108-6] Goal Plan of Care Note [code = 52158-0] Goal Plan of Care Note [code = 08135-4] Goal Plan of Care Note [code = 24085-1] Goal Plan of Care Note [code = 41834-0] Goal Plan of Care Note [code = 21391-3] Goal Plan of Care Note [code = 98968-6] Goal Plan of Care Note [code = 05511-7] Goal Plan of Care Note [code = 22975-1] Goal Plan of Care Note [code = 67083-1] Goal Plan of Care Note [code = 29328-0] Goal Plan of Care Note [code = 20786-7] Goal Plan of Care Note [code = 11910-8] Goal Plan of Care Note [code = 36931-1] Goal Plan of Care Note [code = 14807-1] Goal Plan of Care Note [code = 33096-2] Goal Plan of Care Note [code = 01714-9] Goal Plan of Care Note [code = 04007-7] Goal Plan of Care Note [code = 10152-5] Goal Plan of Care Note [code = 47061-2] Goal Plan of Care Note [code = 24104-9] Goal Plan of Care Note [code = 98350-4] Goal Plan of Care Note [code = 26200-1] Goal Plan of Care Note [code = 36559-7] Goal Plan of Care Note [code = 64132-9] Goal Plan of Care Note [code = 42015-8] Goal Plan of Care Note [code = 93263-4] Goal Plan of Care Note [code = 96086-5] Goal Plan of Care Note [code = 55452-2] Goal Plan of Care Note [code = 87613-6] Goal Plan of Care Note [code = 44973-1] Goal Plan of Care Note [code = 87921-1] Goal Plan of Care Note [code = 81905-1] Goal Plan of Care Note [code = 08246-6] Goal Plan of Care Note [code = 98409-9] Goal Plan of Care Note [code = 26910-7] Goal Plan of Care Note [code = 94032-9] Goal Plan of Care Note [code = 56338-8] Goal Plan of Care Note [code = 13204-4] Goal Plan of Care Note [code = 22913-2] Goal Plan of Care Note [code = 67401-0] Goal Plan of Care Note [code = 21473-9] Goal Plan of Care Note [code = 56546-3] Goal Plan of Care Note [code = 16048-0] Goal Plan of Care Note [code = 92215-4] Goal Plan of Care Note [code = 98253-8] Goal Plan of Care Note [code = 34381-5] Goal Plan of Care Note [code = 97058-5] Goal Plan of Care Note [code = 74780-4] Goal Plan of Care Note [code = 62073-8] Goal Plan of Care Note [code = 94051-4] Goal Plan of Care Note [code = 40279-5] Goal Plan of Care Note [code = 41780-8] Goal Plan of Care Note [code = 09080-7] Goal Plan of Care Note [code = 86132-3] Goal Plan of Care Note [code = 88016-8] Goal Plan of Care Note [code = 73066-7] Goal Plan of Care Note [code = 94273-0] Goal Plan of Care Note [code = 90343-8] Goal Plan of Care Note [code = 68056-3] Goal Plan of Care Note [code = 39429-1] Goal Plan of Care Note [code = 83690-6] Goal Plan of Care Note [code = 93414-7] Goal Plan of Care Note [code = 10611-4] Goal Plan of Care Note [code = 55538-5] Goal Plan of Care Note [code = 72045-9] Goal Plan of Care Note [code = 44364-0] Goal Plan of Care Note [code = 36473-3] Goal Plan of Care Note [code = 95472-7] Goal Plan of Care Note [code = 14320-1] Goal Plan of Care Note [code = 11363-7] Goal Plan of Care Note [code = 89863-3] Goal Plan of Care Note [code = 65395-9] Goal Plan of Care Note [code = 58786-4] Goal Plan of Care Note [code = 25456-4] Goal Plan of Care Note [code = 37439-1] Goal Plan of Care Note [code = 46981-3] Goal Plan of Care Note [code = 15815-1] Goal Plan of Care Note [code = 81999-4] Goal Plan of Care Note [code = 94888-6] Goal Plan of Care Note [code = 57338-4] Goal Plan of Care Note [code = 09478-4] Goal Plan of Care Note [code = 29658-5] Goal Plan of Care Note [code = 50911-8] Goal Plan of Care Note [code = 71312-8] Goal Plan of Care Note [code = 13071-2] Goal Plan of Care Note [code = 80880-5] Goal Plan of Care Note [code = 19027-2] Goal Plan of Care Note [code = 08119-3] Goal Plan of Care Note [code = 68975-0] Goal Plan of Care Note [code = 44772-5] Goal Plan of Care Note [code = 44768-1] Goal Plan of Care Note [code = 96286-7] Goal Plan of Care Note [code = 83935-8] Goal Plan of Care Note [code = 28863-2] Goal Plan of Care Note [code = 08389-4] Goal Plan of Care Note [code = 06642-6] Goal Plan of Care Note [code = 59953-5] Goal Plan of Care Note [code = 76536-7] Goal Plan of Care Note [code = 85633-0] Goal Plan of Care Note [code = 18645-4] Goal Plan of Care Note [code = 22778-6] Goal Plan of Care Note [code = 49895-8] Goal Plan of Care Note [code = 75823-1] Goal Plan of Care Note [code = 24159-2] Goal Plan of Care Note [code = 51495-2] Goal Plan of Care Note [code = 85347-4] Goal Plan of Care Note [code = 24113-2] Goal Plan of Care Note [code = 87149-5] Goal Plan of Care Note [code = 22958-3] Goal Plan of Care Note [code = 31964-4] Goal Plan of Care Note [code = 65532-1] Goal Plan of Care Note [code = 41209-6] Goal Plan of Care Note [code = 92299-2] Goal Plan of Care Note [code = 50394-6] Goal Plan of Care Note [code = 29965-9] Goal Plan of Care Note [code = 09720-2] Goal Plan of Care Note [code = 80067-5] Goal Plan of Care Note [code = 64126-9] Goal Plan of Care Note [code = 53990-6] Goal Plan of Care Note [code = 42371-5] Goal Plan of Care Note [code = 78953-3] Goal Plan of Care Note [code = 54236-7] Goal Plan of Care Note [code = 15048-1] Goal Plan of Care Note [code = 58492-2] Goal Plan of Care Note [code = 03830-3] Goal Plan of Care Note [code = 52721-6] Goal Plan of Care Note [code = 77931-1] Goal Plan of Care Note [code = 85998-8] Goal Plan of Care Note [code = 17875-5] Goal Plan of Care Note [code = 23842-4] Goal Plan of Care Note [code = 04277-4] Goal Plan of Care Note [code = 69699-1] Goal Plan of Care Note [code = 34792-1] Goal Plan of Care Note [code = 18859-4] Goal Plan of Care Note [code = 54546-9] Goal Plan of Care Note [code = 92415-7] Goal Plan of Care Note [code = 84357-0] Goal Plan of Care Note [code = 51800-8] Goal Plan of Care Note [code = 69309-1] Goal Plan of Care Note [code = 71952-9] Goal Plan of Care Note [code = 50292-0] Encounters Start Date/Time End Date/Time Encounter Type Admission Type Attending [facility] Care Facility Care Department Encounter ID Source 2022-12-04 08:15:53 2022-12-04 08:15:53 Outpatient [facility] [id number] 2022-11-13 08:52:07 2022-11-13 08:52:07 Outpatient [facility] [id number] 2022-11-13 00:00:00 2022-11-13 00:00:00 Outpatient Visit [id number] 9913-11-28 17:14:52 2022-10-27 17:14:52 Outpatient [facility] [id number] [address] 2022-10-27 00:00:00 2022-10-27 00:00:00 Outpatient Visit [id number] 2022-10-08 00:00:00 2022-10-08 00:00:00 Outpatient Visit [id number]-[id number]-a [id number] 2022-05-31 00:00:00 2022-05-31 00:00:00 Outpatient Visit [id number] Results Test Description Test Time Test Comments Results Result Co mments Source LIPID [id number] 03:55:33* Test Item Value Reference Range Interpretation Comme nts CHOLESTEROL (test code = 2210) 273 MG/DL <200 H TRIGLYCERIDES (test code = 2232) 257 MG/DL <150 H HDL CHOLESTEROL (test code = 2220) 37 MG/DL >39 L CALC LDL CHOL (test code = 2237) 190 MG/DL <100 H NOTE: CALCULATED LDL IS BASED ON THIERRY-TEMPLE METHOD WHICHINCLUDES ADJUSTABLE TRIGLYCERIDE:VLDL CHOLESTEROL RATIO.THIS FACTOR VARIES BY MEASURED TRIGLYCERIDE AND NON-HDLCHOLESTEROL CONCENTRATIONS WITH INCREASED CALCULATED LDL SEENIN HIGHER TRIGLYCERIDE OR LOWER NON-HDL SPECIMENS. FOR MOREINFORMATION, SEE CLIENT ANNOUNCEMENT AT [email or web address] RISK RATIO LDL/HDL (test code = 2238) 5.14 RATIO <3.22 H COMPREHENSIVE METABOLIC [id number] 03:55:33* Test Item Value Reference Range Interpretation Comme nts GLUCOSE (test code = 2217) 99 MG/DL 70-99 BUN (test code = 2208) 9 MG/DL 6-20 CREATININE (test code = 2213) 0.84 MG/DL 0.60-1.30 eGFR (2020 CKD-EPI) (test code = 76708) 82 ML/MIN/1.73 >60 CALC BUN/CREAT (test code = 2234) 11 RATIO 6-28 SODIUM (test code = 2230) 144 MEQ/L 133-146 POTASSIUM (test code = 2227) 5.3 MEQ/L 3.5-5.4 CHLORIDE (test code = 2214) 105 MEQ/L 95-107 CARBON DIOXIDE (test code = 2205) 27 MEQ/L 19-31 CALCIUM (test code = 2208) 9.7 MG/DL 8.5-10.5 PROTEIN, TOTAL (test code = 2228) 7.2 G/DL 6.1-8.3 ALBUMIN (test code = 2200) 4.2 G/DL 3.5-5.2 CALC GLOBULIN (test code = 2239) 3.0 G/DL 1.9-3.7 CALC A/G RATIO (test code = 2233) 1.4 RATIO 1.0-2.6 BILIRUBIN, TOTAL (test code = 2206) 0.4 MG/DL See_Comment [Automated me ssage] The system which generated this result transmitted reference range: <=1.2. The reference range was not used to interpret this result as normal/abnormal. ALKALINE PHOSPHATASE (test code = 2203) 125 U/L 40-136 AST (test code = 2217) 27 U/L 9-40 ALT (test code = 2218) 37 U/L 5-40 HEMOGLOBIN [id number] 03:40:56* Test Item Value Reference Range Interpretation Comme nts HEMOGLOBIN A1c (test code = 70755) 5.7 % 4.2-5.6 H CULTURE, [id number] 16:05:07SPECIMEN NUMBER: [id number] CULTURE, URINE SPECIMEN NUMBER: [id number] SPECIMEN COMMENT: URINE SOURCE: URINE REPORT STATUS: FINAL ISOLATE NUMBER 1: ORGANISM: 11/15/2022 >100,000 CFU/ML GRAM NEGATIVE BACILLI IDENTIFICATION: 11/16/2022 ESCHERICHIA COLI E. COLI AMOXICILLIN/CA SENSITIVE <=8/4AMPICILLIN RESISTANT >16CEFAZOLIN SENSITIVE <=2CEFTRIAXONE SENSITIVE <=1CIPROFLOXACIN SENSITIVE <=1LEVOFLOXACIN SENSITIVE <=2NITROFURANTOIN SENSITIVE <=32PIP/TAZOBAC SENSITIVE <=16TETRACYCLINE RESISTANT >8TOBRAMYCIN SENSITIVE <=4TRIMETH/SULFA RESISTANT > NOTE: NUMBERS DISPLAYED REPRESENT MINIMUM INHIBITORY CONCENTRATION (ABDOUL) WHICH IS EXPRESSED IN MCG/ML. UNLESS OTHERWISE INDICATED, ALL TESTING PERFORMED [email or web address] [employer] [address] [place] [address] NEUROPSYCHOLOGY DIRECTOR: LAYTON BENAVIDEZ M.D. CLIA NUMBER [id number] [place]. [id number] 09:02:45* Test Item Value Reference Range Interpretation Comme [facility] HEMOGLOBIN A1c (test code = 84973) 5.5 % 4.2-5.6 VITAMIN D, 25 [id number] 06:40:24* Test Item Value Reference Range Interpretation Comme [facility] VITAMIN D, 25 OH (test code = 4958) 29 NG/ML SEE BELOW L NOTE: 25-HYDR OXYVITAMIN D ASSAY INCLUDES 25-HYDROXYVITAMIN D2 AND D3. METHODOLOGY IS CHEMILUMINESCENT IMMUNOASSAY. INTERPRETIVE RANGES PEDIATRIC (<17 YEARS) . . . . . . . . . . . NG/ML 20-100ADULT: INSUFFICIENT . . . . . . . . . . . . . . NG/ML <20 SUBOPTIMAL . . . . . . . . . . . . . . . NG/ML 20-29 OPTIMAL . . . . . . . . . . . . . . . . . NG/ML 30-100 UNLESS OTHERWISE INDICATED, ALL TESTING PERFORMED [facility] [address] [place] [address] NEUROPSYCHOLOGY DIRECTOR: LAYTON BENAVIDEZ M.D. CLIA NUMBER [id number] [place]. [id number] COMPREHENSIVE METABOLIC [id number] 05:29:47* Test Item Value Reference Range Interpretation Comme [facility] GLUCOSE (test code = 2217) 106 MG/DL 70-99 H BUN (test code = 2208) 8 MG/DL 6-20 CREATININE (test code = 2214) 0.60 MG/DL 0.60-1.30 eGFR (2020 CKD-EPI) (test code = 24203) 105 ML/MIN/1.73 >60 CALC BUN/CREAT (test code = 2235) 13 RATIO 6-28 SODIUM (test code = 223) 144 MEQ/L 133-146 POTASSIUM (test code = 2228) 4.7 MEQ/L 3.5-5.4 CHLORIDE (test code = 2215) 105 MEQ/L 95-107 CARBON DIOXIDE (test code = 2206) 27 MEQ/L 19-31 CALCIUM (test code = 2209) 9.2 MG/DL 8.5-10.5 PROTEIN, TOTAL (test code = 222) 7.4 G/DL 6.1-8.3 ALBUMIN (test code = 220) 4.5 G/DL 3.5-5.2 CALC GLOBULIN (test code = 2240) 2.9 G/DL 1.9-3.7 CALC A/G RATIO (test code = 2234) 1.6 RATIO 1.0-2.6 BILIRUBIN, TOTAL (test code = 220) <0.2 MG/DL See_Comment [Automated me ssage] The system which generated this result transmitted reference range: <=1.2. The reference range was not used to interpret this result as normal/abnormal. ALKALINE PHOSPHATASE (test code = 2203) 127 U/L 40-136 AST (test code = 2218) 18 U/L 9-40 ALT (test code = 2219) 16 U/L 5-40 COMPREHENSIVE METABOLIC [id number] 00:00:00* Test Item Value Reference Range Interpretation Comme nts GLUCOSE (test code = 7) 106 MG/DL BUN (test code = 8) 8 MG/DL CREATININE (test code = 2214) 0.60 MG/DL eGFR (2020 CKD-EPI) (test code = 78527) 105 ML/MIN/1.73 CALC BUN/CREAT (test code = 2235) 13 RATIO SODIUM (test code = 2231) 144 MEQ/L POTASSIUM (test code = 2228) 4.7 MEQ/L CHLORIDE (test code = 2215) 105 MEQ/L CARBON DIOXIDE (test code = 2206) 27 MEQ/L CALCIUM (test code = 2209) 9.2 MG/DL PROTEIN, TOTAL (test code = 2229) 7.4 G/DL ALBUMIN (test code = 2201) 4.5 G/DL CALC GLOBULIN (test code = 2240) 2.9 G/DL CALC A/G RATIO (test code = 2234) 1.6 RATIO BILIRUBIN, TOTAL (test code = 2207) <0.2 MG/DL ALKALINE PHOSPHATASE (test code = 2204) 127 U/L AST (test code = 2218) 18 U/L ALT (test code = 2219) 16 U/L COMPREHENSIVE METABOLIC [id number] 00:00:00* Test Item Value Reference Range Interpretation Comme nts GLUCOSE (test code = 2217) 106 MG/DL BUN (test code = 2208) 8 MG/DL CREATININE (test code = 2214) 0.60 MG/DL eGFR (2020 CKD-EPI) (test code = ) 105 ML/MIN/1.73 CALC BUN/CREAT (test code = 2235) 13 RATIO SODIUM (test code = 2231) 144 MEQ/L POTASSIUM (test code = 2228) 4.7 MEQ/L CHLORIDE (test code = 2215) 105 MEQ/L CARBON DIOXIDE (test code = 2206) 27 MEQ/L CALCIUM (test code = 2209) 9.2 MG/DL PROTEIN, TOTAL (test code = 2229) 7.4 G/DL ALBUMIN (test code = 2201) 4.5 G/DL CALC GLOBULIN (test code = 2240) 2.9 G/DL CALC A/G RATIO (test code = 2234) 1.6 RATIO BILIRUBIN, TOTAL (test code = 2207) <0.2 MG/DL ALKALINE PHOSPHATASE (test code = 2204) 127 U/L AST (test code = 2218) 18 U/L ALT (test code = 2219) 16 U/L VITAMIN D, 25 [id number] 00:00:00* Test Item Value Reference Range Interpretation Comme [facility] VITAMIN D, 25 OH (test code = 4958) 29 NG/ML VITAMIN D, 25 [id number] 00:00:00* Test Item Value Reference Range Interpretation Comme [facility] VITAMIN D, 25 OH (test code = 4958) 29 NG/ML HEMOGLOBIN [id number] 00:00:00* Test Item Value Reference Range Interpretation Comme [facility] HEMOGLOBIN A1c (test code = 31652) 5.5 % HEMOGLOBIN [id number] 00:00:00* Test Item Value Reference Range Interpretation Comme nts HEMOGLOBIN A1c (test code = 07471) 5.5 % COMPREHENSIVE METABOLIC [id number] 00:00:00* Test Item Value Reference Range Interpretation Comme nts GLUCOSE (test code = 7) 106 MG/DL BUN (test code = 2208) 8 MG/DL CREATININE (test code = 2214) 0.60 MG/DL eGFR (2020 CKD-EPI) (test code = 34572) 105 ML/MIN/1.73 CALC BUN/CREAT (test code = 2235) 13 RATIO SODIUM (test code = 2231) 144 MEQ/L POTASSIUM (test code = 2228) 4.7 MEQ/L CHLORIDE (test code = 2215) 105 MEQ/L CARBON DIOXIDE (test code = 2206) 27 MEQ/L CALCIUM (test code = 2209) 9.2 MG/DL PROTEIN, TOTAL (test code = 2229) 7.4 G/DL ALBUMIN (test code = 2201) 4.5 G/DL CALC GLOBULIN (test code = 2240) 2.9 G/DL CALC A/G RATIO (test code = 2234) 1.6 RATIO BILIRUBIN, TOTAL (test code = 2207) <0.2 MG/DL ALKALINE PHOSPHATASE (test code = 2204) 127 U/L AST (test code = 2218) 18 U/L ALT (test code = 2219) 16 U/L VITAMIN D, 25 [id number] 00:00:00* Test Item Value Reference Range Interpretation Comme nts VITAMIN D, 25 OH (test code = 4958) 29 NG/ML HEMOGLOBIN [id number] 00:00:00* Test Item Value Reference Range Interpretation Comme nts HEMOGLOBIN A1c (test code = 46309) 5.5 % HEMOGLOBIN [id number] 00:00:00* Test Item Value Reference Range Interpretation Comme nts HEMOGLOBIN A1c (test code = 74145) 5.5 % HEMOGLOBIN [id number] 00:00:00* Test Item Value Reference Range Interpretation Comme nts HEMOGLOBIN A1c (test code = 92456) 5.5 % COMPREHENSIVE METABOLIC [id number] 00:00:00* Test Item Value Reference Range Interpretation Comme nts GLUCOSE (test code = 2216) 106 MG/DL BUN (test code = 2208) 8 MG/DL CREATININE (test code = 2214) 0.60 MG/DL eGFR (2020 CKD-EPI) (test code = 15156) 105 ML/MIN/1.73 CALC BUN/CREAT (test code = 2235) 13 RATIO SODIUM (test code = 2231) 144 MEQ/L POTASSIUM (test code = 2228) 4.7 MEQ/L CHLORIDE (test code = 2215) 105 MEQ/L CARBON DIOXIDE (test code = 2206) 27 MEQ/L CALCIUM (test code = 2209) 9.2 MG/DL PROTEIN, TOTAL (test code = 2229) 7.4 G/DL ALBUMIN (test code = 2201) 4.5 G/DL CALC GLOBULIN (test code = 2240) 2.9 G/DL CALC A/G RATIO (test code = 2234) 1.6 RATIO BILIRUBIN, TOTAL (test code = 2207) <0.2 MG/DL ALKALINE PHOSPHATASE (test code = 2204) 127 U/L AST (test code = 2218) 18 U/L ALT (test code = 2219) 16 U/L COMPREHENSIVE METABOLIC [id number] 00:00:00* Test Item Value Reference Range Interpretation Comme nts GLUCOSE (test code = 2217) 106 MG/DL BUN (test code = 2208) 8 MG/DL CREATININE (test code = 2214) 0.60 MG/DL eGFR (2020 CKD-EPI) (test code = 62214) 105 ML/MIN/1.73 CALC BUN/CREAT (test code = 2235) 13 RATIO SODIUM (test code = 2231) 144 MEQ/L POTASSIUM (test code = 2228) 4.7 MEQ/L CHLORIDE (test code = 2215) 105 MEQ/L CARBON DIOXIDE (test code = 2206) 27 MEQ/L CALCIUM (test code = 2209) 9.2 MG/DL PROTEIN, TOTAL (test code = 2229) 7.4 G/DL ALBUMIN (test code = 2201) 4.5 G/DL CALC GLOBULIN (test code = 2240) 2.9 G/DL CALC A/G RATIO (test code = 2234) 1.6 RATIO BILIRUBIN, TOTAL (test code = 2207) <0.2 MG/DL ALKALINE PHOSPHATASE (test code = 2204) 127 U/L AST (test code = 2218) 18 U/L ALT (test code = 2219) 16 U/L VITAMIN D, 25 [id number] 00:00:00* Test Item Value Reference Range Interpretation Comme nts VITAMIN D, 25 OH (test code = 4958) 29 NG/ML VITAMIN D, 25 [id number] 00:00:00* Test Item Value Reference Range Interpretation Comme nts VITAMIN D, 25 OH (test code = 4958) 29 NG/ML HEMOGLOBIN [id number] 00:00:00* Test Item Value Reference Range Interpretation Comme nts HEMOGLOBIN A1c (test code = 92425) 5.5 % HEMOGLOBIN [id number] 00:00:00* Test Item Value Reference Range Interpretation Comme nts HEMOGLOBIN A1c (test code = 10201) 5.5 % HEMOGLOBIN [id number] 00:00:00* Test Item Value Reference Range Interpretation Comme nts HEMOGLOBIN A1c (test code = 23473) 5.5 % COMPREHENSIVE METABOLIC [id number] 00:00:00* Test Item Value Reference Range Interpretation Comme nts GLUCOSE (test code = 2217) 106 MG/DL BUN (test code = 2208) 8 MG/DL CREATININE (test code = 2214) 0.60 MG/DL eGFR (2020 CKD-EPI) (test code = 78160) 105 ML/MIN/1.73 CALC BUN/CREAT (test code = 2235) 13 RATIO SODIUM (test code = 2231) 144 MEQ/L POTASSIUM (test code = 2228) 4.7 MEQ/L CHLORIDE (test code = 2215) 105 MEQ/L CARBON DIOXIDE (test code = 2206) 27 MEQ/L CALCIUM (test code = 2209) 9.2 MG/DL PROTEIN, TOTAL (test code = 2229) 7.4 G/DL ALBUMIN (test code = 2201) 4.5 G/DL CALC GLOBULIN (test code = 2240) 2.9 G/DL CALC A/G RATIO (test code = 2234) 1.6 RATIO BILIRUBIN, TOTAL (test code = 2207) <0.2 MG/DL ALKALINE PHOSPHATASE (test code = 2204) 127 U/L AST (test code = 2218) 18 U/L ALT (test code = 2219) 16 U/L COMPREHENSIVE METABOLIC [id number] 00:00:00* Test Item Value Reference Range Interpretation Comme nts GLUCOSE (test code = 7) 106 MG/DL BUN (test code = 8) 8 MG/DL CREATININE (test code = 2214) 0.60 MG/DL eGFR (2020 CKD-EPI) (test code = ) 105 ML/MIN/1.73 CALC BUN/CREAT (test code = 5) 13 RATIO SODIUM (test code = 223) 144 MEQ/L POTASSIUM (test code = 2228) 4.7 MEQ/L CHLORIDE (test code = 2215) 105 MEQ/L CARBON DIOXIDE (test code = 2206) 27 MEQ/L CALCIUM (test code = 220) 9.2 MG/DL PROTEIN, TOTAL (test code = 2228) 7.4 G/DL ALBUMIN (test code = 2200) 4.5 G/DL CALC GLOBULIN (test code = 0) 2.9 G/DL CALC A/G RATIO (test code = 2234) 1.6 RATIO BILIRUBIN, TOTAL (test code = 2206) <0.2 MG/DL ALKALINE PHOSPHATASE (test code = 2203) 127 U/L AST (test code = 8) 18 U/L ALT (test code = 2219) 16 U/L VITAMIN D, 25 [id number] 00:00:00* Test Item Value Reference Range Interpretation Comme [facility] VITAMIN D, 25 OH (test code = 4958) 29 NG/ML VITAMIN D, 25 [id number] 00:00:00* Test Item Value Reference Range Interpretation Comme [facility] VITAMIN D, 25 OH (test code = 4958) 29 NG/ML HEMOGLOBIN [id number] 00:00:00* Test Item Value Reference Range Interpretation Comme [facility] HEMOGLOBIN A1c (test code = 68461) 5.5 % HEMOGLOBIN [id number] 00:00:00* Test Item Value Reference Range Interpretation Comme [facility] HEMOGLOBIN A1c (test code = 18335) 5.5 % HEMOGLOBIN [id number] 00:00:00* Test Item Value Reference Range Interpretation Comme [facility] HEMOGLOBIN A1c (test code = 72736) 5.5 % OCCULT BLD,FECAL,IMMUNOASSAY [id number] 11:25:13* Test Item Value Reference Range Interpretation Comme [facility] OCCULT BLD, FECAL (test code = 70152) NEGATIVE NEGATIVE UNLESS OTHER [place]IL[place] INDICATED, ALL TESTING PERFORMED [facility] [address] [place] [address] NEUROPSYCHOLOGY DIRECTOR: LAYTON BENAVIDEZ M.D. [place] NUMBER [id number] [facility] [place]. [id number] OCCULT BLD,FECAL,IMMUNOASSAY [id number] 00:00:00* Test Item Value Reference Range Interpretation Comme nts OCCULT BLD, FECAL (test code = 36516) NEGATIVE OCCULT BLD,FECAL,IMMUNOASSAY [id number] 00:00:00* Test Item Value Reference Range Interpretation Comme nts OCCULT BLD, FECAL (test code = 73683) NEGATIVE OCCULT BLD,FECAL,IMMUNOASSAY [id number] 00:00:00* Test Item Value Reference Range Interpretation Comme nts OCCULT BLD, FECAL (test code = 41905) NEGATIVE OCCULT BLD,FECAL,IMMUNOASSAY [id number] 00:00:00* Test Item Value Reference Range Interpretation Comme nts OCCULT BLD, FECAL (test code = 92451) NEGATIVE OCCULT BLD,FECAL,IMMUNOASSAY [id number] 00:00:00* Test Item Value Reference Range Interpretation Comme nts OCCULT BLD, FECAL (test code = 79522) NEGATIVE OCCULT BLD,FECAL,IMMUNOASSAY [id number] 00:00:00* Test Item Value Reference Range Interpretation Comme nts OCCULT BLD, FECAL (test code = 02856) NEGATIVE OCCULT BLD,FECAL,IMMUNOASSAY [id number] 00:00:00* Test Item Value Reference Range Interpretation Comme nts OCCULT BLD, FECAL (test code = 81471) NEGATIVE OCCULT BLD,FECAL,IMMUNOASSAY [id number] 00:00:00* Test Item Value Reference Range Interpretation Comme nts OCCULT BLD, FECAL (test code = 56731) NEGATIVE OCCULT BLD,FECAL,IMMUNOASSAY [id number] 00:00:00* Test Item Value Reference Range Interpretation Comme nts OCCULT BLD, FECAL (test code = 74295) NEGATIVE OCCULT BLD,FECAL,IMMUNOASSAY [id number] 00:00:00* Test Item Value Reference Range Interpretation Comme nts OCCULT BLD, FECAL (test code = 60253) NEGATIVE OCCULT BLD,FECAL,IMMUNOASSAY [id number] 00:00:00* Test Item Value Reference Range Interpretation Comme nts OCCULT BLD, FECAL (test code = 43831) NEGATIVE VITAMIN D, 25 [id number] 04:55:35* Test Item Value Reference Range Interpretation Comme nts VITAMIN D, 25 OH (test code = 4958) <4 NG/ML SEE BELOW L NOTE: 25-HYDR OXYVITAMIN D ASSAY INCLUDES 25-HYDROXYVITAMIN D2 AND D3. METHODOLOGY IS CHEMILUMINESCENT IMMUNOASSAY. INTERPRETIVE RANGES PEDIATRIC (<17 YEARS) . . . . . . . . . . . NG/ML 20-100ADULT: INSUFFICIENT . . . . . . . . . . . . . . NG/ML <20 SUBOPTIMAL . . . . . . . . . . . . . . . NG/ML 20-29 OPTIMAL . . . . . . . . . . . . . . . . . NG/ML 30-100 HIV 1/2 4TH GEN, RFLX [id number] 03:55:08* Test Item Value Reference Range Interpretation Comme nts HIV 1/2 4TH GEN, RFLX CONF ( test code = 3514) NON-REACTIVE NON-REACTIVE VITAMIN D, 25 [id number] 00:00:00* Test Item Value Reference Range Interpretation Comme nts VITAMIN D, 25 OH (test code = 4958) <4 NG/ML HIV AB/AG COMBO RFLX [id number] 00:00:00* Test Item Value Reference Range Interpretation Comme nts HIV 1/2 4TH GEN, RFLX CONF ( test code = 3514) NON-REACTIVE HIV AB/AG COMBO RFLX [id number] 00:00:00* Test Item Value Reference Range Interpretation Comme nts HIV 1/2 4TH GEN, RFLX CONF ( test code = 3514) NON-REACTIVE VITAMIN D, 25 [id number] 00:00:00* Test Item Value Reference Range Interpretation Comme nts VITAMIN D, 25 OH (test code = 4958) <4 NG/ML HIV AB/AG COMBO RFLX [id number] 00:00:00* Test Item Value Reference Range Interpretation Comme nts HIV 1/2 4TH GEN, RFLX CONF ( test code = 3514) NON-REACTIVE VITAMIN D, 25 [id number] 00:00:00* Test Item Value Reference Range Interpretation Comme nts VITAMIN D, 25 OH (test code = 4958) <4 NG/ML VITAMIN D, 25 [id number] 00:00:00* Test Item Value Reference Range Interpretation Comme nts VITAMIN D, 25 OH (test code = 4958) <4 NG/ML HIV AB/AG COMBO RFLX [id number] 00:00:00* Test Item Value Reference Range Interpretation Comme nts HIV 1/2 4TH GEN, RFLX CONF ( test code = 3514) NON-REACTIVE HIV AB/AG COMBO RFLX [id number] 00:00:00* Test Item Value Reference Range Interpretation Comme nts HIV 1/2 4TH GEN, RFLX CONF ( test code = 3514) NON-REACTIVE VITAMIN D, 25 [id number] 00:00:00* Test Item Value Reference Range Interpretation Comme nts VITAMIN D, 25 OH (test code = 4958) <4 NG/ML VITAMIN D, 25 [id number] 00:00:00* Test Item Value Reference Range Interpretation Comme nts VITAMIN D, 25 OH (test code = 4958) <4 NG/ML HIV AB/AG COMBO RFLX [id number] 00:00:00* Test Item Value Reference Range Interpretation Comme nts HIV 1/2 4TH GEN, RFLX CONF ( test code = 3514) NON-REACTIVE HIV AB/AG COMBO RFLX [id number] 00:00:00* Test Item Value Reference Range Interpretation Comme nts HIV 1/2 4TH GEN, RFLX CONF ( test code = 3514) NON-REACTIVE VITAMIN D, 25 [id number] 00:00:00* Test Item Value Reference Range Interpretation Comme nts VITAMIN D, 25 OH (test code = 4958) <4 NG/ML COMPREHENSIVE METABOLIC [id number] 00:18:16* Test Item Value Reference Range Interpretation Comme nts GLUCOSE (test code = 2217) 88 MG/DL 70-99 BUN (test code = 2208) 7 MG/DL 6-20 CREATININE (test code = 2214) 0.72 MG/DL 0.60-1.30 eGFR (2020 CKD-EPI) (test code = 75392) 99 ML/MIN/1.73 >60 CALC BUN/CREAT (test code = 2235) 10 RATIO 6-28 SODIUM (test code = 2231) 146 MEQ/L 133-146 POTASSIUM (test code = 2228) 4.6 MEQ/L 3.5-5.4 CHLORIDE (test code = 2215) 105 MEQ/L 95-107 CARBON DIOXIDE (test code = 2206) 17 MEQ/L 19-31 L CALCIUM (test code = 2209) 8.7 MG/DL 8.5-10.5 PROTEIN, TOTAL (test code = 2229) 7.1 G/DL 6.1-8.3 ALBUMIN (test code = 2201) 4.3 G/DL 3.5-5.2 CALC GLOBULIN (test code = 2240) 2.8 G/DL 1.9-3.7 CALC A/G RATIO (test code = 2234) 1.5 RATIO 1.0-2.6 BILIRUBIN, TOTAL (test code = 2207) <0.2 MG/DL See_Comment [Automated me ssage] The system which generated this result transmitted reference range: <=1.2. The reference range was not used to interpret this result as normal/abnormal. ALKALINE PHOSPHATASE (test code = 2204) 120 U/L 40-133 AST (test code = 2218) 19 U/L 9-40 ALT (test code = 2219) 14 U/L 5-40 COMPREHENSIVE METABOLIC [id number] 00:00:00* Test Item Value Reference Range Interpretation Comme nts GLUCOSE (test code = 2217) 88 MG/DL BUN (test code = 2208) 7 MG/DL CREATININE (test code = 2214) 0.72 MG/DL eGFR (2020 CKD-EPI) (test co de = 80663) 99 ML/MIN/1.73 CALC BUN/CREAT (test code = 2235) 10 RATIO SODIUM (test code = 2231) 146 MEQ/L POTASSIUM (test code = 2228) 4.6 MEQ/L CHLORIDE (test code = 2215) 105 MEQ/L CARBON DIOXIDE (test code = 2206) 17 MEQ/L CALCIUM (test code = 2209) 8.7 MG/DL PROTEIN, TOTAL (test code = 2229) 7.1 G/DL ALBUMIN (test code = 2201) 4.3 G/DL CALC GLOBULIN (test code = 2240) 2.8 G/DL CALC A/G RATIO (test code = 2234) 1.5 RATIO BILIRUBIN, TOTAL (test code = 2207) <0.2 MG/DL ALKALINE PHOSPHATASE (test code = 2204) 120 U/L AST (test code = 2218) 19 U/L ALT (test code = 2219) 14 U/L COMPREHENSIVE METABOLIC [id number] 00:00:00* Test Item Value Reference Range Interpretation Comme nts GLUCOSE (test code = 2217) 88 MG/DL BUN (test code = 2208) 7 MG/DL CREATININE (test code = 2214) 0.72 MG/DL eGFR (2020 CKD-EPI) (test co de = 94236) 99 ML/MIN/1.73 CALC BUN/CREAT (test code = 2235) 10 RATIO SODIUM (test code = 2231) 146 MEQ/L POTASSIUM (test code = 2228) 4.6 MEQ/L CHLORIDE (test code = 2215) 105 MEQ/L CARBON DIOXIDE (test code = 2206) 17 MEQ/L CALCIUM (test code = 2209) 8.7 MG/DL PROTEIN, TOTAL (test code = 2229) 7.1 G/DL ALBUMIN (test code = 2201) 4.3 G/DL CALC GLOBULIN (test code = 2240) 2.8 G/DL CALC A/G RATIO (test code = 2234) 1.5 RATIO BILIRUBIN, TOTAL (test code = 2207) <0.2 MG/DL ALKALINE PHOSPHATASE (test code = 2204) 120 U/L AST (test code = 2218) 19 U/L ALT (test code = 2219) 14 U/L COMPREHENSIVE METABOLIC [id number] 00:00:00* Test Item Value Reference Range Interpretation Comme nts GLUCOSE (test code = 2217) 88 MG/DL BUN (test code = 2208) 7 MG/DL CREATININE (test code = 2214) 0.72 MG/DL eGFR (2020 CKD-EPI) (test co de = 75033) 99 ML/MIN/1.73 CALC BUN/CREAT (test code = 2235) 10 RATIO SODIUM (test code = 2231) 146 MEQ/L POTASSIUM (test code = 2228) 4.6 MEQ/L CHLORIDE (test code = 2215) 105 MEQ/L CARBON DIOXIDE (test code = 2206) 17 MEQ/L CALCIUM (test code = 2209) 8.7 MG/DL PROTEIN, TOTAL (test code = 2229) 7.1 G/DL ALBUMIN (test code = 2201) 4.3 G/DL CALC GLOBULIN (test code = 2240) 2.8 G/DL CALC A/G RATIO (test code = 2234) 1.5 RATIO BILIRUBIN, TOTAL (test code = 2207) <0.2 MG/DL ALKALINE PHOSPHATASE (test code = 2204) 120 U/L AST (test code = 2218) 19 U/L ALT (test code = 2219) 14 U/L COMPREHENSIVE METABOLIC [id number] 00:00:00* Test Item Value Reference Range Interpretation Comme nts GLUCOSE (test code = 2217) 88 MG/DL BUN (test code = 2208) 7 MG/DL CREATININE (test code = 2214) 0.72 MG/DL eGFR (2020 CKD-EPI) (test co de = 10223) 99 ML/MIN/1.73 CALC BUN/CREAT (test code = 2235) 10 RATIO SODIUM (test code = 2231) 146 MEQ/L POTASSIUM (test code = 2228) 4.6 MEQ/L CHLORIDE (test code = 2215) 105 MEQ/L CARBON DIOXIDE (test code = 2206) 17 MEQ/L CALCIUM (test code = 2209) 8.7 MG/DL PROTEIN, TOTAL (test code = 2229) 7.1 G/DL ALBUMIN (test code = 2201) 4.3 G/DL CALC GLOBULIN (test code = 2240) 2.8 G/DL CALC A/G RATIO (test code = 2234) 1.5 RATIO BILIRUBIN, TOTAL (test code = 2207) <0.2 MG/DL ALKALINE PHOSPHATASE (test code = 2204) 120 U/L AST (test code = 2218) 19 U/L ALT (test code = 2219) 14 U/L COMPREHENSIVE METABOLIC [id number] 00:00:00* Test Item Value Reference Range Interpretation Comme nts GLUCOSE (test code = 2217) 88 MG/DL BUN (test code = 2208) 7 MG/DL CREATININE (test code = 2214) 0.72 MG/DL eGFR (2020 CKD-EPI) (test co de = 66869) 99 ML/MIN/1.73 CALC BUN/CREAT (test code = 2235) 10 RATIO SODIUM (test code = 2231) 146 MEQ/L POTASSIUM (test code = 2228) 4.6 MEQ/L CHLORIDE (test code = 2215) 105 MEQ/L CARBON DIOXIDE (test code = 2206) 17 MEQ/L CALCIUM (test code = 2209) 8.7 MG/DL PROTEIN, TOTAL (test code = 2229) 7.1 G/DL ALBUMIN (test code = 2201) 4.3 G/DL CALC GLOBULIN (test code = 2240) 2.8 G/DL CALC A/G RATIO (test code = 2234) 1.5 RATIO BILIRUBIN, TOTAL (test code = 2207) <0.2 MG/DL ALKALINE PHOSPHATASE (test code = 2204) 120 U/L AST (test code = 2218) 19 U/L ALT (test code = 2219) 14 U/L COMPREHENSIVE METABOLIC [id number] 00:00:00* Test Item Value Reference Range Interpretation Comme nts GLUCOSE (test code = 2217) 88 MG/DL BUN (test code = 2208) 7 MG/DL CREATININE (test code = 2214) 0.72 MG/DL eGFR (2020 CKD-EPI) (test co de = 81797) 99 ML/MIN/1.73 CALC BUN/CREAT (test code = 2235) 10 RATIO SODIUM (test code = 2231) 146 MEQ/L POTASSIUM (test code = 2228) 4.6 MEQ/L CHLORIDE (test code = 2215) 105 MEQ/L CARBON DIOXIDE (test code = 2206) 17 MEQ/L CALCIUM (test code = 2209) 8.7 MG/DL PROTEIN, TOTAL (test code = 2229) 7.1 G/DL ALBUMIN (test code = 2201) 4.3 G/DL CALC GLOBULIN (test code = 2240) 2.8 G/DL CALC A/G RATIO (test code = 2234) 1.5 RATIO BILIRUBIN, TOTAL (test code = 2207) <0.2 MG/DL ALKALINE PHOSPHATASE (test code = 2204) 120 U/L AST (test code = 2218) 19 U/L ALT (test code = 2219) 14 U/L COMPREHENSIVE METABOLIC [id number] 00:00:00* Test Item Value Reference Range Interpretation Comme nts GLUCOSE (test code = 2217) 88 MG/DL BUN (test code = 2208) 7 MG/DL CREATININE (test code = 2214) 0.72 MG/DL eGFR (2020 CKD-EPI) (test co de = 64899) 99 ML/MIN/1.73 CALC BUN/CREAT (test code = 2235) 10 RATIO SODIUM (test code = 223) 146 MEQ/L POTASSIUM (test code = 2228) 4.6 MEQ/L CHLORIDE (test code = 2215) 105 MEQ/L CARBON DIOXIDE (test code = 2206) 17 MEQ/L CALCIUM (test code = 2209) 8.7 MG/DL PROTEIN, TOTAL (test code = 222) 7.1 G/DL ALBUMIN (test code = 2201) 4.3 G/DL CALC GLOBULIN (test code = 2240) 2.8 G/DL CALC A/G RATIO (test code = 2234) 1.5 RATIO BILIRUBIN, TOTAL (test code = 2207) <0.2 MG/DL ALKALINE PHOSPHATASE (test code = 2204) 120 U/L AST (test code = 2218) 19 U/L ALT (test code = 2219) 14 U/L TSH, THIRD [id number] 00:39:32* Test Item Value Reference Range Interpretation Comme nts TSH, THIRD GENERATION (test code = 2821) 3.630 UIU/ML 0.400-4.100 UNLESS OTHERWISE INDICATED, ALL TESTING PERFORMED [facility] [address] [place] [address] NEUROPSYCHOLOGY DIRECTOR: LAYTON BENAVIDEZ M.D. CLIA NUMBER [id number] [facility] [place]. [id number] 00:00:00* Test Item Value Reference Range Interpretation Comme nts TSH, THIRD GENERATION (test code = 2821) 3.630 UIU/ML [id number] 00:00:00* Test Item Value Reference Range Interpretation Comme nts TSH, THIRD GENERATION (test code = 2821) 3.630 UIU/ML [id number] 00:00:00* Test Item Value Reference Range Interpretation Comme nts TSH, THIRD GENERATION (test code = 2821) 3.630 UIU/ML [id number] 00:00:00* Test Item Value Reference Range Interpretation Comme nts TSH, THIRD GENERATION (test code = 2821) 3.630 UIU/ML [id number] 00:00:00* Test Item Value Reference Range Interpretation Comme nts TSH, THIRD GENERATION (test code = 2821) 3.630 UIU/ML [id number] 00:00:00* Test Item Value Reference Range Interpretation Comme nts TSH, THIRD GENERATION (test code = 2821) 3.630 UIU/ML [id number] 00:00:00* Test Item Value Reference Range Interpretation Comme nts TSH, THIRD GENERATION (test code = 2821) 3.630 UIU/ML [id number] 00:00:00* Test Item Value Reference Range Interpretation Comme nts TSH, THIRD GENERATION (test code = 2821) 3.630 UIU/ML [id number] 00:00:00* Test Item Value Reference Range Interpretation Comme nts TSH, THIRD GENERATION (test code = 2821) 3.630 UIU/ML [id number] 00:00:00* Test Item Value Reference Range Interpretation Comme nts TSH, THIRD GENERATION (test code = 2821) 3.630 UIU/ML [id number] 00:00:00* Test Item Value Reference Range Interpretation Comme nts TSH, THIRD GENERATION (test code = 2821) 3.630 UIU/ML COMPREHENSIVE METABOLIC [id number] 00:00:00* Test Item Value Reference Range Interpretation Comme nts GLUCOSE (test code = 2217) 100 MG/DL BUN (test code = 2208) 8 MG/DL CREATININE (test code = 2214) 0.65 MG/DL eGFR AMER. (test cod e = 03961) 116 ML/MIN/1.73 eGFR NON- AMER. (test code = 38426) 100 ML/MIN/1.73 CALC BUN/CREAT (test code = 2235) 12 RATIO SODIUM (test code = 2231) 143 MEQ/L POTASSIUM (test code = 2228) 4.6 MEQ/L CHLORIDE (test code = 2215) 104 MEQ/L CARBON DIOXIDE (test code = 2206) 25 MEQ/L CALCIUM (test code = 2209) 9.3 MG/DL PROTEIN, TOTAL (test code = 2229) 7.5 G/DL ALBUMIN (test code = 2201) 4.6 G/DL CALC GLOBULIN (test code = 2240) 2.9 G/DL CALC A/G RATIO (test code = 2234) 1.6 RATIO BILIRUBIN, TOTAL (test code = 2207) <0.2 MG/DL ALKALINE PHOSPHATASE (test code = 2204) 130 U/L AST (test code = 2218) 19 U/L ALT (test code = 2219) 16 U/L COMPREHENSIVE METABOLIC [id number] 00:00:00* Test Item Value Reference Range Interpretation Comme nts GLUCOSE (test code = 2217) 100 MG/DL BUN (test code = 2208) 8 MG/DL CREATININE (test code = 2214) 0.65 MG/DL eGFR AMER. (test cod e = 59271) 116 ML/MIN/1.73 eGFR NON- AMER. (test code = 80454) 100 ML/MIN/1.73 CALC BUN/CREAT (test code = 2235) 12 RATIO SODIUM (test code = 2231) 143 MEQ/L POTASSIUM (test code = 2228) 4.6 MEQ/L CHLORIDE (test code = 2215) 104 MEQ/L CARBON DIOXIDE (test code = 2206) 25 MEQ/L CALCIUM (test code = 2209) 9.3 MG/DL PROTEIN, TOTAL (test code = 2229) 7.5 G/DL ALBUMIN (test code = 2201) 4.6 G/DL CALC GLOBULIN (test code = 2240) 2.9 G/DL CALC A/G RATIO (test code = 2234) 1.6 RATIO BILIRUBIN, TOTAL (test code = 2207) <0.2 MG/DL ALKALINE PHOSPHATASE (test code = 2204) 130 U/L AST (test code = 2218) 19 U/L ALT (test code = 2219) 16 U/L LIPID [id number] 00:00:00* Test Item Value Reference Range Interpretation Comme nts CHOLESTEROL (test code = 2210) 262 MG/DL TRIGLYCERIDES (test code = 2232) 168 MG/DL HDL CHOLESTEROL (test code = 2220) 38 MG/DL CALC LDL CHOL (test code = 2237) 190 MG/DL RISK RATIO LDL/HDL (test cod e = 2238) 5.00 RATIO LIPID [id number] 00:00:00* Test Item Value Reference Range Interpretation Comme nts CHOLESTEROL (test code = 2210) 262 MG/DL TRIGLYCERIDES (test code = 2232) 168 MG/DL HDL CHOLESTEROL (test code = 2220) 38 MG/DL CALC LDL CHOL (test code = 2237) 190 MG/DL RISK RATIO LDL/HDL (test cod e = 2238) 5.00 RATIO [id number] 00:00:00* Test Item Value Reference Range Interpretation Comme nts TSH, THIRD GENERATION (test code = 2821) 0.940 UIU/ML [id number] 00:00:00* Test Item Value Reference Range Interpretation Comme nts TSH, THIRD GENERATION (test code = 2821) 0.940 UIU/ML [id number] 00:00:00* Test Item Value Reference Range Interpretation Comme nts TSH, THIRD GENERATION (test code = 2821) 0.940 UIU/ML COMPREHENSIVE METABOLIC [id number] 00:00:00* Test Item Value Reference Range Interpretation Comme nts GLUCOSE (test code = 2217) 100 MG/DL BUN (test code = 2208) 8 MG/DL CREATININE (test code = 2214) 0.65 MG/DL eGFR AMER. (test cod e = 96408) 116 ML/MIN/1.73 eGFR NON- AMER. (test code = 49467) 100 ML/MIN/1.73 CALC BUN/CREAT (test code = 2235) 12 RATIO SODIUM (test code = 2231) 143 MEQ/L POTASSIUM (test code = 2228) 4.6 MEQ/L CHLORIDE (test code = 2215) 104 MEQ/L CARBON DIOXIDE (test code = 2206) 25 MEQ/L CALCIUM (test code = 2209) 9.3 MG/DL PROTEIN, TOTAL (test code = 2229) 7.5 G/DL ALBUMIN (test code = 2201) 4.6 G/DL CALC GLOBULIN (test code = 2240) 2.9 G/DL CALC A/G RATIO (test code = 2234) 1.6 RATIO BILIRUBIN, TOTAL (test code = 2207) <0.2 MG/DL ALKALINE PHOSPHATASE (test code = 2204) 130 U/L AST (test code = 2218) 19 U/L ALT (test code = 2219) 16 U/L LIPID [id number] 00:00:00* Test Item Value Reference Range Interpretation Comme nts CHOLESTEROL (test code = 2210) 262 MG/DL TRIGLYCERIDES (test code = 2232) 168 MG/DL HDL CHOLESTEROL (test code = 2220) 38 MG/DL CALC LDL CHOL (test code = 2237) 190 MG/DL RISK RATIO LDL/HDL (test cod e = 2238) 5.00 RATIO [id number] 00:00:00* Test Item Value Reference Range Interpretation Comme nts TSH, THIRD GENERATION (test code = 2821) 0.940 UIU/ML [id number] 00:00:00* Test Item Value Reference Range Interpretation Comme nts TSH, THIRD GENERATION (test code = 2821) 0.940 UIU/ML COMPREHENSIVE METABOLIC [id number] 00:00:00* Test Item Value Reference Range Interpretation Comme nts GLUCOSE (test code = 2217) 100 MG/DL BUN (test code = 2208) 8 MG/DL CREATININE (test code = 2214) 0.65 MG/DL eGFR AMER. (test cod e = 74515) 116 ML/MIN/1.73 eGFR NON- AMER. (test code = 73211) 100 ML/MIN/1.73 CALC BUN/CREAT (test code = 2235) 12 RATIO SODIUM (test code = 2231) 143 MEQ/L POTASSIUM (test code = 2228) 4.6 MEQ/L CHLORIDE (test code = 2215) 104 MEQ/L CARBON DIOXIDE (test code = 2206) 25 MEQ/L CALCIUM (test code = 2209) 9.3 MG/DL PROTEIN, TOTAL (test code = 2229) 7.5 G/DL ALBUMIN (test code = 2201) 4.6 G/DL CALC GLOBULIN (test code = 2240) 2.9 G/DL CALC A/G RATIO (test code = 2234) 1.6 RATIO BILIRUBIN, TOTAL (test code = 2207) <0.2 MG/DL ALKALINE PHOSPHATASE (test code = 2204) 130 U/L AST (test code = 2218) 19 U/L ALT (test code = 2219) 16 U/L COMPREHENSIVE METABOLIC [id number] 00:00:00* Test Item Value Reference Range Interpretation Comme nts GLUCOSE (test code = 2217) 100 MG/DL BUN (test code = 2208) 8 MG/DL CREATININE (test code = 2214) 0.65 MG/DL eGFR AMER. (test cod e = 03461) 116 ML/MIN/1.73 eGFR NON- AMER. (test code = 49171) 100 ML/MIN/1.73 CALC BUN/CREAT (test code = 2235) 12 RATIO SODIUM (test code = 2231) 143 MEQ/L POTASSIUM (test code = 2228) 4.6 MEQ/L CHLORIDE (test code = 2215) 104 MEQ/L CARBON DIOXIDE (test code = 2206) 25 MEQ/L CALCIUM (test code = 2209) 9.3 MG/DL PROTEIN, TOTAL (test code = 2229) 7.5 G/DL ALBUMIN (test code = 2201) 4.6 G/DL CALC GLOBULIN (test code = 2240) 2.9 G/DL CALC A/G RATIO (test code = 2234) 1.6 RATIO BILIRUBIN, TOTAL (test code = 2207) <0.2 MG/DL ALKALINE PHOSPHATASE (test code = 2204) 130 U/L AST (test code = 2218) 19 U/L ALT (test code = 2219) 16 U/L LIPID [id number] 00:00:00* Test Item Value Reference Range Interpretation Comme nts CHOLESTEROL (test code = 2210) 262 MG/DL TRIGLYCERIDES (test code = 2232) 168 MG/DL HDL CHOLESTEROL (test code = 2220) 38 MG/DL CALC LDL CHOL (test code = 2237) 190 MG/DL RISK RATIO LDL/HDL (test cod e = 2238) 5.00 RATIO LIPID [id number] 00:00:00* Test Item Value Reference Range Interpretation Comme nts CHOLESTEROL (test code = 2210) 262 MG/DL TRIGLYCERIDES (test code = 2232) 168 MG/DL HDL CHOLESTEROL (test code = 2220) 38 MG/DL CALC LDL CHOL (test code = 2237) 190 MG/DL RISK RATIO LDL/HDL (test cod e = 2238) 5.00 RATIO [id number] 00:00:00* Test Item Value Reference Range Interpretation Comme nts TSH, THIRD GENERATION (test code = 2821) 0.940 UIU/ML [id number] 00:00:00* Test Item Value Reference Range Interpretation Comme nts TSH, THIRD GENERATION (test code = 2821) 0.940 UIU/ML [id number] 00:00:00* Test Item Value Reference Range Interpretation Comme nts TSH, THIRD GENERATION (test code = 2821) 0.940 UIU/ML COMPREHENSIVE METABOLIC [id number] 00:00:00* Test Item Value Reference Range Interpretation Comme nts GLUCOSE (test code = 2217) 100 MG/DL BUN (test code = 2208) 8 MG/DL CREATININE (test code = 2214) 0.65 MG/DL eGFR AMER. (test cod e = 34925) 116 ML/MIN/1.73 eGFR NON- AMER. (test code = 87795) 100 ML/MIN/1.73 CALC BUN/CREAT (test code = 2235) 12 RATIO SODIUM (test code = 2231) 143 MEQ/L POTASSIUM (test code = 2228) 4.6 MEQ/L CHLORIDE (test code = 2215) 104 MEQ/L CARBON DIOXIDE (test code = 2206) 25 MEQ/L CALCIUM (test code = 2209) 9.3 MG/DL PROTEIN, TOTAL (test code = 2229) 7.5 G/DL ALBUMIN (test code = 2201) 4.6 G/DL CALC GLOBULIN (test code = 2240) 2.9 G/DL CALC A/G RATIO (test code = 2234) 1.6 RATIO BILIRUBIN, TOTAL (test code = 2207) <0.2 MG/DL ALKALINE PHOSPHATASE (test code = 2204) 130 U/L AST (test code = 2218) 19 U/L ALT (test code = 2219) 16 U/L COMPREHENSIVE METABOLIC [id number] 00:00:00* Test Item Value Reference Range Interpretation Comme nts GLUCOSE (test code = 2217) 100 MG/DL BUN (test code = 2208) 8 MG/DL CREATININE (test code = 2214) 0.65 MG/DL eGFR AMER. (test cod e = 78001) 116 ML/MIN/1.73 eGFR NON- AMER. (test code = 63971) 100 ML/MIN/1.73 CALC BUN/CREAT (test code = 2235) 12 RATIO SODIUM (test code = 2231) 143 MEQ/L POTASSIUM (test code = 2228) 4.6 MEQ/L CHLORIDE (test code = 2215) 104 MEQ/L CARBON DIOXIDE (test code = 2206) 25 MEQ/L CALCIUM (test code = 2209) 9.3 MG/DL PROTEIN, TOTAL (test code = 2229) 7.5 G/DL ALBUMIN (test code = 2201) 4.6 G/DL CALC GLOBULIN (test code = 2240) 2.9 G/DL CALC A/G RATIO (test code = 2234) 1.6 RATIO BILIRUBIN, TOTAL (test code = 2207) <0.2 MG/DL ALKALINE PHOSPHATASE (test code = 2204) 130 U/L AST (test code = 2218) 19 U/L ALT (test code = 2219) 16 U/L LIPID [id number] 00:00:00* Test Item Value Reference Range Interpretation Comme nts CHOLESTEROL (test code = 2210) 262 MG/DL TRIGLYCERIDES (test code = 2232) 168 MG/DL HDL CHOLESTEROL (test code = 2220) 38 MG/DL CALC LDL CHOL (test code = 2237) 190 MG/DL RISK RATIO LDL/HDL (test cod e = 2238) 5.00 RATIO LIPID [id number] 00:00:00* Test Item Value Reference Range Interpretation Comme nts CHOLESTEROL (test code = 2210) 262 MG/DL TRIGLYCERIDES (test code = 2232) 168 MG/DL HDL CHOLESTEROL (test code = 2220) 38 MG/DL CALC LDL CHOL (test code = 2237) 190 MG/DL RISK RATIO LDL/HDL (test cod e = 2238) 5.00 RATIO [id number] 00:00:00* Test Item Value Reference Range Interpretation Comme nts TSH, THIRD GENERATION (test code = 2821) 0.940 UIU/ML [id number] 00:00:00* Test Item Value Reference Range Interpretation Comme nts TSH, THIRD GENERATION (test code = 2821) 0.940 UIU/ML [id number] 00:00:00* Test Item Value Reference Range Interpretation Comme nts TSH, THIRD GENERATION (test code = 2821) 0.940 UIU/ML COMPREHENSIVE METABOLIC [id number] 00:00:00* Test Item Value Reference Range Interpretation Comme nts GLUCOSE (test code = 2217) 86 MG/DL BUN (test code = 2208) 9 MG/DL CREATININE (test code = 2214) 0.63 MG/DL eGFR AMER. (test cod e = 61346) 117 ML/MIN/1.73 eGFR NON- AMER. (test code = 01977) 101 ML/MIN/1.73 CALC BUN/CREAT (test code = 2235) 14 RATIO SODIUM (test code = 2231) 145 MEQ/L POTASSIUM (test code = 2228) 3.8 MEQ/L CHLORIDE (test code = 2215) 107 MEQ/L CARBON DIOXIDE (test code = 2206) 29 MEQ/L CALCIUM (test code = 2209) 9.1 MG/DL PROTEIN, TOTAL (test code = 2229) 7.2 G/DL ALBUMIN (test code = 2201) 4.4 G/DL CALC GLOBULIN (test code = 2240) 2.8 G/DL CALC A/G RATIO (test code = 2234) 1.6 RATIO BILIRUBIN, TOTAL (test code = 2207) 0.6 MG/DL ALKALINE PHOSPHATASE (test code = 2204) 115 U/L AST (test code = 2218) 27 U/L ALT (test code = 2219) 24 U/L LIPID [id number] 00:00:00* Test Item Value Reference Range Interpretation Comme nts CHOLESTEROL (test code = 2210) 218 MG/DL TRIGLYCERIDES (test code = 2232) 140 MG/DL HDL CHOLESTEROL (test code = 2220) 39 MG/DL CALC LDL CHOL (test code = 2237) 153 MG/DL RISK RATIO LDL/HDL (test cod e = 2238) 3.92 RATIO LIPID [id number] 00:00:00* Test Item Value Reference Range Interpretation Comme nts CHOLESTEROL (test code = 2210) 218 MG/DL TRIGLYCERIDES (test code = 2232) 140 MG/DL HDL CHOLESTEROL (test code = 2220) 39 MG/DL CALC LDL CHOL (test code = 2237) 153 MG/DL RISK RATIO LDL/HDL (test cod e = 2238) 3.92 RATIO [id number] 00:00:00* Test Item Value Reference Range Interpretation Comme nts TSH, THIRD GENERATION (test code = 2821) 0.767 UIU/ML [id number] 00:00:00* Test Item Value Reference Range Interpretation Comme nts TSH, THIRD GENERATION (test code = 2821) 0.767 UIU/ML [id number] 00:00:00* Test Item Value Reference Range Interpretation Comme nts TSH, THIRD GENERATION (test code = 2821) 0.767 UIU/ML COMPREHENSIVE METABOLIC [id number] 00:00:00* Test Item Value Reference Range Interpretation Comme nts GLUCOSE (test code = 2217) 86 MG/DL BUN (test code = 2208) 9 MG/DL CREATININE (test code = 2214) 0.63 MG/DL eGFR AMER. (test cod e = 98095) 117 ML/MIN/1.73 eGFR NON- AMER. (test code = 76771) 101 ML/MIN/1.73 CALC BUN/CREAT (test code = 2235) 14 RATIO SODIUM (test code = 2231) 145 MEQ/L POTASSIUM (test code = 2228) 3.8 MEQ/L CHLORIDE (test code = 2215) 107 MEQ/L CARBON DIOXIDE (test code = 2206) 29 MEQ/L CALCIUM (test code = 2209) 9.1 MG/DL PROTEIN, TOTAL (test code = 2229) 7.2 G/DL ALBUMIN (test code = 2201) 4.4 G/DL CALC GLOBULIN (test code = 2240) 2.8 G/DL CALC A/G RATIO (test code = 2234) 1.6 RATIO BILIRUBIN, TOTAL (test code = 2207) 0.6 MG/DL ALKALINE PHOSPHATASE (test code = 2204) 115 U/L AST (test code = 2218) 27 U/L ALT (test code = 2219) 24 U/L LIPID [id number] 00:00:00* Test Item Value Reference Range Interpretation Comme nts CHOLESTEROL (test code = 2210) 218 MG/DL TRIGLYCERIDES (test code = 2232) 140 MG/DL HDL CHOLESTEROL (test code = 2220) 39 MG/DL CALC LDL CHOL (test code = 2237) 153 MG/DL RISK RATIO LDL/HDL (test cod e = 2238) 3.92 RATIO [id number] 00:00:00* Test Item Value Reference Range Interpretation Comme nts TSH, THIRD GENERATION (test code = 2821) 0.767 UIU/ML [id number] 00:00:00* Test Item Value Reference Range Interpretation Comme nts TSH, THIRD GENERATION (test code = 2821) 0.767 UIU/ML COMPREHENSIVE METABOLIC [id number] 00:00:00* Test Item Value Reference Range Interpretation Comme nts GLUCOSE (test code = 2217) 86 MG/DL BUN (test code = 2208) 9 MG/DL CREATININE (test code = 2214) 0.63 MG/DL eGFR AMER. (test cod e = 66170) 117 ML/MIN/1.73 eGFR NON- AMER. (test code = 03936) 101 ML/MIN/1.73 CALC BUN/CREAT (test code = 2235) 14 RATIO SODIUM (test code = 2231) 145 MEQ/L POTASSIUM (test code = 2228) 3.8 MEQ/L CHLORIDE (test code = 2215) 107 MEQ/L CARBON DIOXIDE (test code = 2206) 29 MEQ/L CALCIUM (test code = 2209) 9.1 MG/DL PROTEIN, TOTAL (test code = 2229) 7.2 G/DL ALBUMIN (test code = 2201) 4.4 G/DL CALC GLOBULIN (test code = 2240) 2.8 G/DL CALC A/G RATIO (test code = 2234) 1.6 RATIO BILIRUBIN, TOTAL (test code = 2207) 0.6 MG/DL ALKALINE PHOSPHATASE (test code = 2204) 115 U/L AST (test code = 2218) 27 U/L ALT (test code = 2219) 24 U/L COMPREHENSIVE METABOLIC [id number] 00:00:00* Test Item Value Reference Range Interpretation Comme nts GLUCOSE (test code = 2217) 86 MG/DL BUN (test code = 2208) 9 MG/DL CREATININE (test code = 2214) 0.63 MG/DL eGFR AMER. (test cod e = 93860) 117 ML/MIN/1.73 eGFR NON- AMER. (test code = 08829) 101 ML/MIN/1.73 CALC BUN/CREAT (test code = 2235) 14 RATIO SODIUM (test code = 2231) 145 MEQ/L POTASSIUM (test code = 2228) 3.8 MEQ/L CHLORIDE (test code = 2215) 107 MEQ/L CARBON DIOXIDE (test code = 2206) 29 MEQ/L CALCIUM (test code = 2209) 9.1 MG/DL PROTEIN, TOTAL (test code = 2229) 7.2 G/DL ALBUMIN (test code = 2201) 4.4 G/DL CALC GLOBULIN (test code = 2240) 2.8 G/DL CALC A/G RATIO (test code = 2234) 1.6 RATIO BILIRUBIN, TOTAL (test code = 2207) 0.6 MG/DL ALKALINE PHOSPHATASE (test code = 2204) 115 U/L AST (test code = 2218) 27 U/L ALT (test code = 2219) 24 U/L LIPID [id number] 00:00:00* Test Item Value Reference Range Interpretation Comme nts CHOLESTEROL (test code = 2210) 218 MG/DL TRIGLYCERIDES (test code = 2232) 140 MG/DL HDL CHOLESTEROL (test code = 2220) 39 MG/DL CALC LDL CHOL (test code = 2237) 153 MG/DL RISK RATIO LDL/HDL (test cod e = 2238) 3.92 RATIO LIPID [id number] 00:00:00* Test Item Value Reference Range Interpretation Comme nts CHOLESTEROL (test code = 2210) 218 MG/DL TRIGLYCERIDES (test code = 2232) 140 MG/DL HDL CHOLESTEROL (test code = 2220) 39 MG/DL CALC LDL CHOL (test code = 2237) 153 MG/DL RISK RATIO LDL/HDL (test cod e = 2238) 3.92 RATIO [id number] 00:00:00* Test Item Value Reference Range Interpretation Comme nts TSH, THIRD GENERATION (test code = 2821) 0.767 UIU/ML [id number] 00:00:00* Test Item Value Reference Range Interpretation Comme nts TSH, THIRD GENERATION (test code = 2821) 0.767 UIU/ML [id number] 00:00:00* Test Item Value Reference Range Interpretation Comme nts TSH, THIRD GENERATION (test code = 2821) 0.767 UIU/ML COMPREHENSIVE METABOLIC [id number] 00:00:00* Test Item Value Reference Range Interpretation Comme nts GLUCOSE (test code = 2217) 86 MG/DL BUN (test code = 2208) 9 MG/DL CREATININE (test code = 2214) 0.63 MG/DL eGFR AMER. (test cod e = 84956) 117 ML/MIN/1.73 eGFR NON- AMER. (test code = 09733) 101 ML/MIN/1.73 CALC BUN/CREAT (test code = 2235) 14 RATIO SODIUM (test code = 2231) 145 MEQ/L POTASSIUM (test code = 2228) 3.8 MEQ/L CHLORIDE (test code = 2215) 107 MEQ/L CARBON DIOXIDE (test code = 2206) 29 MEQ/L CALCIUM (test code = 2209) 9.1 MG/DL PROTEIN, TOTAL (test code = 2229) 7.2 G/DL ALBUMIN (test code = 2201) 4.4 G/DL CALC GLOBULIN (test code = 2240) 2.8 G/DL CALC A/G RATIO (test code = 2234) 1.6 RATIO BILIRUBIN, TOTAL (test code = 2207) 0.6 MG/DL ALKALINE PHOSPHATASE (test code = 2204) 115 U/L AST (test code = 2218) 27 U/L ALT (test code = 2219) 24 U/L COMPREHENSIVE METABOLIC [id number] 00:00:00* Test Item Value Reference Range Interpretation Comme nts GLUCOSE (test code = 2217) 86 MG/DL BUN (test code = 2208) 9 MG/DL CREATININE (test code = 2214) 0.63 MG/DL eGFR AMER. (test cod e = 97264) 117 ML/MIN/1.73 eGFR NON- AMER. (test code = 89109) 101 ML/MIN/1.73 CALC BUN/CREAT (test code = 2235) 14 RATIO SODIUM (test code = 2231) 145 MEQ/L POTASSIUM (test code = 2228) 3.8 MEQ/L CHLORIDE (test code = 2215) 107 MEQ/L CARBON DIOXIDE (test code = 2206) 29 MEQ/L CALCIUM (test code = 2209) 9.1 MG/DL PROTEIN, TOTAL (test code = 2229) 7.2 G/DL ALBUMIN (test code = 2201) 4.4 G/DL CALC GLOBULIN (test code = 2240) 2.8 G/DL CALC A/G RATIO (test code = 2234) 1.6 RATIO BILIRUBIN, TOTAL (test code = 2207) 0.6 MG/DL ALKALINE PHOSPHATASE (test code = 2204) 115 U/L AST (test code = 2218) 27 U/L ALT (test code = 2219) 24 U/L LIPID [id number] 00:00:00* Test Item Value Reference Range Interpretation Comme nts CHOLESTEROL (test code = 2210) 218 MG/DL TRIGLYCERIDES (test code = 2232) 140 MG/DL HDL CHOLESTEROL (test code = 2220) 39 MG/DL CALC LDL CHOL (test code = 2237) 153 MG/DL RISK RATIO LDL/HDL (test cod e = 2238) 3.92 RATIO LIPID [id number] 00:00:00* Test Item Value Reference Range Interpretation Comme nts CHOLESTEROL (test code = 2210) 218 MG/DL TRIGLYCERIDES (test code = 2232) 140 MG/DL HDL CHOLESTEROL (test code = 2220) 39 MG/DL CALC LDL CHOL (test code = 2237) 153 MG/DL RISK RATIO LDL/HDL (test cod e = 2238) 3.92 RATIO [id number] 00:00:00* Test Item Value Reference Range Interpretation Comme nts TSH, THIRD GENERATION (test code = 2821) 0.767 UIU/ML [id number] 00:00:00* Test Item Value Reference Range Interpretation Comme nts TSH, THIRD GENERATION (test code = 2821) 0.767 UIU/ML [id number] 00:00:00* Test Item Value Reference Range Interpretation Comme nts TSH, THIRD GENERATION (test code = 2821) 0.767 UIU/ML COMPREHENSIVE METABOLIC [id number] 00:00:00* Test Item Value Reference Range Interpretation Comme nts GLUCOSE (test code = 2217) 86 MG/DL BUN (test code = 2208) 9 MG/DL CREATININE (test code = 2214) 0.63 MG/DL eGFR AMER. (test cod e = 96722) 117 ML/MIN/1.73 eGFR NON- AMER. (test code = 57280) 101 ML/MIN/1.73 CALC BUN/CREAT (test code = 2235) 14 RATIO SODIUM (test code = 2231) 145 MEQ/L POTASSIUM (test code = 2228) 3.8 MEQ/L CHLORIDE (test code = 2215) 107 MEQ/L CARBON DIOXIDE (test code = 2206) 29 MEQ/L CALCIUM (test code = 2209) 9.1 MG/DL PROTEIN, TOTAL (test code = 2229) 7.2 G/DL ALBUMIN (test code = 2201) 4.4 G/DL CALC GLOBULIN (test code = 2240) 2.8 G/DL CALC A/G RATIO (test code = 2234) 1.6 RATIO BILIRUBIN, TOTAL (test code = 2207) 0.6 MG/DL ALKALINE PHOSPHATASE (test code = 2204) 115 U/L AST (test code = 2218) 27 U/L ALT (test code = 2219) 24 U/L LIPID [id number] 00:00:00* Test Item Value Reference Range Interpretation Comme nts CHOLESTEROL (test code = 2210) 243 MG/DL TRIGLYCERIDES (test code = 2232) 203 MG/DL HDL CHOLESTEROL (test code = 2220) 40 MG/DL CALC LDL CHOL (test code = 2237) 167 MG/DL RISK RATIO LDL/HDL (test cod e = 2238) 4.18 RATIO LIPID [id number] 00:00:00* Test Item Value Reference Range Interpretation Comme nts CHOLESTEROL (test code = 2210) 243 MG/DL TRIGLYCERIDES (test code = 2232) 203 MG/DL HDL CHOLESTEROL (test code = 2220) 40 MG/DL CALC LDL CHOL (test code = 2237) 167 MG/DL RISK RATIO LDL/HDL (test cod e = 2238) 4.18 RATIO COMPREHENSIVE METABOLIC [id number] 00:00:00* Test Item Value Reference Range Interpretation Comme nts GLUCOSE (test code = 2217) 101 MG/DL BUN (test code = 2208) 10 MG/DL CREATININE (test code = 2214) 0.67 MG/DL eGFR AMER. (test cod e = 76276) 115 ML/MIN/1.73 eGFR NON- AMER. (test code = 51851) 100 ML/MIN/1.73 CALC BUN/CREAT (test code = 2235) 15 RATIO SODIUM (test code = 2231) 139 MEQ/L POTASSIUM (test code = 2228) 4.5 MEQ/L CHLORIDE (test code = 2215) 102 MEQ/L CARBON DIOXIDE (test code = 2206) 21 MEQ/L CALCIUM (test code = 2209) 9.4 MG/DL PROTEIN, TOTAL (test code = 2229) 7.4 G/DL ALBUMIN (test code = 2201) 4.6 G/DL CALC GLOBULIN (test code = 2240) 2.8 G/DL CALC A/G RATIO (test code = 2234) 1.6 RATIO BILIRUBIN, TOTAL (test code = 2207) 0.3 MG/DL ALKALINE PHOSPHATASE (test code = 2204) 130 U/L AST (test code = 2218) 19 U/L ALT (test code = 2219) 19 U/L COMPREHENSIVE METABOLIC [id number] 00:00:00* Test Item Value Reference Range Interpretation Comme nts GLUCOSE (test code = 2217) 101 MG/DL BUN (test code = 2208) 10 MG/DL CREATININE (test code = 2214) 0.67 MG/DL eGFR AMER. (test cod e = 11162) 115 ML/MIN/1.73 eGFR NON- AMER. (test code = 80534) 100 ML/MIN/1.73 CALC BUN/CREAT (test code = 2235) 15 RATIO SODIUM (test code = 2231) 139 MEQ/L POTASSIUM (test code = 2228) 4.5 MEQ/L CHLORIDE (test code = 2215) 102 MEQ/L CARBON DIOXIDE (test code = 2206) 21 MEQ/L CALCIUM (test code = 2209) 9.4 MG/DL PROTEIN, TOTAL (test code = 2229) 7.4 G/DL ALBUMIN (test code = 2201) 4.6 G/DL CALC GLOBULIN (test code = 2240) 2.8 G/DL CALC A/G RATIO (test code = 2234) 1.6 RATIO BILIRUBIN, TOTAL (test code = 2207) 0.3 MG/DL ALKALINE PHOSPHATASE (test code = 2204) 130 U/L AST (test code = 2218) 19 U/L ALT (test code = 2219) 19 U/L LIPID [id number] 00:00:00* Test Item Value Reference Range Interpretation Comme nts CHOLESTEROL (test code = 2210) 243 MG/DL TRIGLYCERIDES (test code = 2232) 203 MG/DL HDL CHOLESTEROL (test code = 2220) 40 MG/DL CALC LDL CHOL (test code = 2237) 167 MG/DL RISK RATIO LDL/HDL (test cod e = 2238) 4.18 RATIO COMPREHENSIVE METABOLIC [id number] 00:00:00* Test Item Value Reference Range Interpretation Comme nts GLUCOSE (test code = 2217) 101 MG/DL BUN (test code = 2208) 10 MG/DL CREATININE (test code = 2214) 0.67 MG/DL eGFR AMER. (test cod e = 52421) 115 ML/MIN/1.73 eGFR NON- AMER. (test code = 06773) 100 ML/MIN/1.73 CALC BUN/CREAT (test code = 2235) 15 RATIO SODIUM (test code = 2231) 139 MEQ/L POTASSIUM (test code = 2228) 4.5 MEQ/L CHLORIDE (test code = 2215) 102 MEQ/L CARBON DIOXIDE (test code = 2206) 21 MEQ/L CALCIUM (test code = 2209) 9.4 MG/DL PROTEIN, TOTAL (test code = 2229) 7.4 G/DL ALBUMIN (test code = 2201) 4.6 G/DL CALC GLOBULIN (test code = 2240) 2.8 G/DL CALC A/G RATIO (test code = 2234) 1.6 RATIO BILIRUBIN, TOTAL (test code = 2207) 0.3 MG/DL ALKALINE PHOSPHATASE (test code = 2204) 130 U/L AST (test code = 2218) 19 U/L ALT (test code = 2219) 19 U/L LIPID [id number] 00:00:00* Test Item Value Reference Range Interpretation Comme nts CHOLESTEROL (test code = 2210) 243 MG/DL TRIGLYCERIDES (test code = 2232) 203 MG/DL HDL CHOLESTEROL (test code = 2220) 40 MG/DL CALC LDL CHOL (test code = 2237) 167 MG/DL RISK RATIO LDL/HDL (test cod e = 2238) 4.18 RATIO LIPID [id number] 00:00:00* Test Item Value Reference Range Interpretation Comme nts CHOLESTEROL (test code = 2210) 243 MG/DL TRIGLYCERIDES (test code = 2232) 203 MG/DL HDL CHOLESTEROL (test code = 2220) 40 MG/DL CALC LDL CHOL (test code = 2237) 167 MG/DL RISK RATIO LDL/HDL (test cod e = 2238) 4.18 RATIO COMPREHENSIVE METABOLIC [id number] 00:00:00* Test Item Value Reference Range Interpretation Comme nts GLUCOSE (test code = 2217) 101 MG/DL BUN (test code = 2208) 10 MG/DL CREATININE (test code = 2214) 0.67 MG/DL eGFR AMER. (test cod e = 69609) 115 ML/MIN/1.73 eGFR NON- AMER. (test code = 01295) 100 ML/MIN/1.73 CALC BUN/CREAT (test code = 2235) 15 RATIO SODIUM (test code = 2231) 139 MEQ/L POTASSIUM (test code = 2228) 4.5 MEQ/L CHLORIDE (test code = 2215) 102 MEQ/L CARBON DIOXIDE (test code = 2206) 21 MEQ/L CALCIUM (test code = 2209) 9.4 MG/DL PROTEIN, TOTAL (test code = 2229) 7.4 G/DL ALBUMIN (test code = 2201) 4.6 G/DL CALC GLOBULIN (test code = 2240) 2.8 G/DL CALC A/G RATIO (test code = 2234) 1.6 RATIO BILIRUBIN, TOTAL (test code = 2207) 0.3 MG/DL ALKALINE PHOSPHATASE (test code = 2204) 130 U/L AST (test code = 2218) 19 U/L ALT (test code = 2219) 19 U/L COMPREHENSIVE METABOLIC [id number] 00:00:00* Test Item Value Reference Range Interpretation Comme nts GLUCOSE (test code = 2217) 101 MG/DL BUN (test code = 2208) 10 MG/DL CREATININE (test code = 2214) 0.67 MG/DL eGFR AMER. (test cod e = 51838) 115 ML/MIN/1.73 eGFR NON- AMER. (test code = 84600) 100 ML/MIN/1.73 CALC BUN/CREAT (test code = 2235) 15 RATIO SODIUM (test code = 2231) 139 MEQ/L POTASSIUM (test code = 2228) 4.5 MEQ/L CHLORIDE (test code = 2215) 102 MEQ/L CARBON DIOXIDE (test code = 2206) 21 MEQ/L CALCIUM (test code = 2209) 9.4 MG/DL PROTEIN, TOTAL (test code = 2229) 7.4 G/DL ALBUMIN (test code = 2201) 4.6 G/DL CALC GLOBULIN (test code = 2240) 2.8 G/DL CALC A/G RATIO (test code = 2234) 1.6 RATIO BILIRUBIN, TOTAL (test code = 2207) 0.3 MG/DL ALKALINE PHOSPHATASE (test code = 2204) 130 U/L AST (test code = 2218) 19 U/L ALT (test code = 2219) 19 U/L LIPID [id number] 00:00:00* Test Item Value Reference Range Interpretation Comme nts CHOLESTEROL (test code = 2210) 243 MG/DL TRIGLYCERIDES (test code = 2232) 203 MG/DL HDL CHOLESTEROL (test code = 2220) 40 MG/DL CALC LDL CHOL (test code = 2237) 167 MG/DL RISK RATIO LDL/HDL (test cod e = 2238) 4.18 RATIO LIPID [id number] 00:00:00* Test Item Value Reference Range Interpretation Comme nts CHOLESTEROL (test code = 2210) 243 MG/DL TRIGLYCERIDES (test code = 2232) 203 MG/DL HDL CHOLESTEROL (test code = 2220) 40 MG/DL CALC LDL CHOL (test code = 2237) 167 MG/DL RISK RATIO LDL/HDL (test cod e = 2238) 4.18 RATIO COMPREHENSIVE METABOLIC [id number] 00:00:00* Test Item Value Reference Range Interpretation Comme nts GLUCOSE (test code = 2217) 101 MG/DL BUN (test code = 2208) 10 MG/DL CREATININE (test code = 2214) 0.67 MG/DL eGFR AMER. (test cod e = 62522) 115 ML/MIN/1.73 eGFR NON- AMER. (test code = 01390) 100 ML/MIN/1.73 CALC BUN/CREAT (test code = 2235) 15 RATIO SODIUM (test code = 2231) 139 MEQ/L POTASSIUM (test code = 2228) 4.5 MEQ/L CHLORIDE (test code = 2215) 102 MEQ/L CARBON DIOXIDE (test code = 2206) 21 MEQ/L CALCIUM (test code = 2209) 9.4 MG/DL PROTEIN, TOTAL (test code = 2229) 7.4 G/DL ALBUMIN (test code = 2201) 4.6 G/DL CALC GLOBULIN (test code = 2240) 2.8 G/DL CALC A/G RATIO (test code = 2234) 1.6 RATIO BILIRUBIN, TOTAL (test code = 2207) 0.3 MG/DL ALKALINE PHOSPHATASE (test code = 2204) 130 U/L AST (test code = 2218) 19 U/L ALT (test code = 2219) 19 U/L COMPREHENSIVE METABOLIC [id number] 00:00:00* Test Item Value Reference Range Interpretation Comme nts GLUCOSE (test code = 2217) 101 MG/DL BUN (test code = 2208) 10 MG/DL CREATININE (test code = 2214) 0.67 MG/DL eGFR AMER. (test cod e = 90330) 115 ML/MIN/1.73 eGFR NON- AMER. (test code = 27662) 100 ML/MIN/1.73 CALC BUN/CREAT (test code = 2235) 15 RATIO SODIUM (test code = 2231) 139 MEQ/L POTASSIUM (test code = 2228) 4.5 MEQ/L CHLORIDE (test code = 2215) 102 MEQ/L CARBON DIOXIDE (test code = 2206) 21 MEQ/L CALCIUM (test code = 2209) 9.4 MG/DL PROTEIN, TOTAL (test code = 2229) 7.4 G/DL ALBUMIN (test code = 2201) 4.6 G/DL CALC GLOBULIN (test code = 2240) 2.8 G/DL CALC A/G RATIO (test code = 2234) 1.6 RATIO BILIRUBIN, TOTAL (test code = 2207) 0.3 MG/DL ALKALINE PHOSPHATASE (test code = 2204) 130 U/L AST (test code = 2218) 19 U/L ALT (test code = 2219) 19 U/L [id number] 00:00:00* Test Item Value Reference Range Interpretation Comme nts TSH, THIRD GENERATION (test code = 2821) 2.000 UIU/ML [id number] 00:00:00* Test Item Value Reference Range Interpretation Comme nts TSH, THIRD GENERATION (test code = 2821) 2.000 UIU/ML [id number] 00:00:00* Test Item Value Reference Range Interpretation Comme nts TSH, THIRD GENERATION (test code = 2821) 2.000 UIU/ML [id number] 00:00:00* Test Item Value Reference Range Interpretation Comme nts TSH, THIRD GENERATION (test code = 2821) 2.000 UIU/ML [id number] 00:00:00* Test Item Value Reference Range Interpretation Comme nts TSH, THIRD GENERATION (test code = 2821) 2.000 UIU/ML [id number] 00:00:00* Test Item Value Reference Range Interpretation Comme nts TSH, THIRD GENERATION (test code = 2821) 2.000 UIU/ML [id number] 00:00:00* Test Item Value Reference Range Interpretation Comme nts TSH, THIRD GENERATION (test code = 2821) 2.000 UIU/ML [id number] 00:00:00* Test Item Value Reference Range Interpretation Comme nts TSH, THIRD GENERATION (test code = 2821) 2.000 UIU/ML [id number] 00:00:00* Test Item Value Reference Range Interpretation Comme nts TSH, THIRD GENERATION (test code = 2821) 2.000 UIU/ML [id number] 00:00:00* Test Item Value Reference Range Interpretation Comme nts TSH, THIRD GENERATION (test code = 2821) 2.000 UIU/ML [id number] 00:00:00* Test Item Value Reference Range Interpretation Comme nts TSH, THIRD GENERATION (test code = 2821) 2.000 UIU/ML COMPREHENSIVE METABOLIC [id number] 00:00:00* Test Item Value Reference Range Interpretation Comme nts GLUCOSE (test code = 2217) 80 MG/DL BUN (test code = 2208) 7 MG/DL CREATININE (test code = 2214) 0.59 MG/DL eGFR AMER. (test cod e = 07914) 120 ML/MIN/1.73 eGFR NON- AMER. (test code = 40432) 104 ML/MIN/1.73 CALC BUN/CREAT (test code = 2235) 12 RATIO SODIUM (test code = 2231) 142 MEQ/L POTASSIUM (test code = 2228) 4.5 MEQ/L CHLORIDE (test code = 2215) 101 MEQ/L CARBON DIOXIDE (test code = 2206) 25 MEQ/L CALCIUM (test code = 2209) 8.9 MG/DL PROTEIN, TOTAL (test code = 2229) 6.9 G/DL ALBUMIN (test code = 2201) 4.3 G/DL CALC GLOBULIN (test code = 2240) 2.6 G/DL CALC A/G RATIO (test code = 2234) 1.7 RATIO BILIRUBIN, TOTAL (test code = 2207) <0.2 MG/DL ALKALINE PHOSPHATASE (test code = 2204) 116 U/L AST (test code = 2218) 21 U/L ALT (test code = 2219) 22 U/L COMPREHENSIVE METABOLIC [id number] 00:00:00* Test Item Value Reference Range Interpretation Comme nts GLUCOSE (test code = 2217) 80 MG/DL BUN (test code = 2208) 7 MG/DL CREATININE (test code = 2214) 0.59 MG/DL eGFR AMER. (test cod e = 86642) 120 ML/MIN/1.73 eGFR NON- AMER. (test code = 29583) 104 ML/MIN/1.73 CALC BUN/CREAT (test code = 2235) 12 RATIO SODIUM (test code = 2231) 142 MEQ/L POTASSIUM (test code = 2228) 4.5 MEQ/L CHLORIDE (test code = 2215) 101 MEQ/L CARBON DIOXIDE (test code = 2206) 25 MEQ/L CALCIUM (test code = 2209) 8.9 MG/DL PROTEIN, TOTAL (test code = 2229) 6.9 G/DL ALBUMIN (test code = 2201) 4.3 G/DL CALC GLOBULIN (test code = 2240) 2.6 G/DL CALC A/G RATIO (test code = 2234) 1.7 RATIO BILIRUBIN, TOTAL (test code = 2207) <0.2 MG/DL ALKALINE PHOSPHATASE (test code = 2204) 116 U/L AST (test code = 2218) 21 U/L ALT (test code = 2219) 22 U/L LIPID [id number] 00:00:00* Test Item Value Reference Range Interpretation Comme nts CHOLESTEROL (test code = 2210) 204 MG/DL TRIGLYCERIDES (test code = 2232) 168 MG/DL HDL CHOLESTEROL (test code = 2220) 37 MG/DL CALC LDL CHOL (test code = 2237) 136 MG/DL RISK RATIO LDL/HDL (test cod e = 2238) 3.68 RATIO COMPREHENSIVE METABOLIC [id number] 00:00:00* Test Item Value Reference Range Interpretation Comme nts GLUCOSE (test code = 2217) 80 MG/DL BUN (test code = 2208) 7 MG/DL CREATININE (test code = 2214) 0.59 MG/DL eGFR AMER. (test cod e = 13054) 120 ML/MIN/1.73 eGFR NON- AMER. (test code = 95785) 104 ML/MIN/1.73 CALC BUN/CREAT (test code = 2235) 12 RATIO SODIUM (test code = 2231) 142 MEQ/L POTASSIUM (test code = 2228) 4.5 MEQ/L CHLORIDE (test code = 2215) 101 MEQ/L CARBON DIOXIDE (test code = 2206) 25 MEQ/L CALCIUM (test code = 2209) 8.9 MG/DL PROTEIN, TOTAL (test code = 2229) 6.9 G/DL ALBUMIN (test code = 2201) 4.3 G/DL CALC GLOBULIN (test code = 2240) 2.6 G/DL CALC A/G RATIO (test code = 2234) 1.7 RATIO BILIRUBIN, TOTAL (test code = 2207) <0.2 MG/DL ALKALINE PHOSPHATASE (test code = 2204) 116 U/L AST (test code = 2218) 21 U/L ALT (test code = 2219) 22 U/L LIPID [id number] 00:00:00* Test Item Value Reference Range Interpretation Comme nts CHOLESTEROL (test code = 2210) 204 MG/DL TRIGLYCERIDES (test code = 2232) 168 MG/DL HDL CHOLESTEROL (test code = 2220) 37 MG/DL CALC LDL CHOL (test code = 2237) 136 MG/DL RISK RATIO LDL/HDL (test cod e = 2238) 3.68 RATIO LIPID [id number] 00:00:00* Test Item Value Reference Range Interpretation Comme nts CHOLESTEROL (test code = 2210) 204 MG/DL TRIGLYCERIDES (test code = 2232) 168 MG/DL HDL CHOLESTEROL (test code = 2220) 37 MG/DL CALC LDL CHOL (test code = 2237) 136 MG/DL RISK RATIO LDL/HDL (test cod e = 2238) 3.68 RATIO COMPREHENSIVE METABOLIC [id number] 00:00:00* Test Item Value Reference Range Interpretation Comme nts GLUCOSE (test code = 2217) 80 MG/DL BUN (test code = 2208) 7 MG/DL CREATININE (test code = 2214) 0.59 MG/DL eGFR AMER. (test cod e = 66362) 120 ML/MIN/1.73 eGFR NON- AMER. (test code = 87854) 104 ML/MIN/1.73 CALC BUN/CREAT (test code = 2235) 12 RATIO SODIUM (test code = 2231) 142 MEQ/L POTASSIUM (test code = 2228) 4.5 MEQ/L CHLORIDE (test code = 2215) 101 MEQ/L CARBON DIOXIDE (test code = 2206) 25 MEQ/L CALCIUM (test code = 2209) 8.9 MG/DL PROTEIN, TOTAL (test code = 2229) 6.9 G/DL ALBUMIN (test code = 2201) 4.3 G/DL CALC GLOBULIN (test code = 2240) 2.6 G/DL CALC A/G RATIO (test code = 2234) 1.7 RATIO BILIRUBIN, TOTAL (test code = 2207) <0.2 MG/DL ALKALINE PHOSPHATASE (test code = 2204) 116 U/L AST (test code = 2218) 21 U/L ALT (test code = 2219) 22 U/L COMPREHENSIVE METABOLIC [id number] 00:00:00* Test Item Value Reference Range Interpretation Comme nts GLUCOSE (test code = 2217) 80 MG/DL BUN (test code = 2208) 7 MG/DL CREATININE (test code = 2214) 0.59 MG/DL eGFR AMER. (test cod e = 36796) 120 ML/MIN/1.73 eGFR NON- AMER. (test code = 19596) 104 ML/MIN/1.73 CALC BUN/CREAT (test code = 2235) 12 RATIO SODIUM (test code = 2231) 142 MEQ/L POTASSIUM (test code = 2228) 4.5 MEQ/L CHLORIDE (test code = 2215) 101 MEQ/L CARBON DIOXIDE (test code = 2206) 25 MEQ/L CALCIUM (test code = 2209) 8.9 MG/DL PROTEIN, TOTAL (test code = 2229) 6.9 G/DL ALBUMIN (test code = 2201) 4.3 G/DL CALC GLOBULIN (test code = 2240) 2.6 G/DL CALC A/G RATIO (test code = 2234) 1.7 RATIO BILIRUBIN, TOTAL (test code = 2207) <0.2 MG/DL ALKALINE PHOSPHATASE (test code = 2204) 116 U/L AST (test code = 2218) 21 U/L ALT (test code = 2219) 22 U/L LIPID [id number] 00:00:00* Test Item Value Reference Range Interpretation Comme nts CHOLESTEROL (test code = 2210) 204 MG/DL TRIGLYCERIDES (test code = 2232) 168 MG/DL HDL CHOLESTEROL (test code = 2220) 37 MG/DL CALC LDL CHOL (test code = 2237) 136 MG/DL RISK RATIO LDL/HDL (test cod e = 2238) 3.68 RATIO LIPID [id number] 00:00:00* Test Item Value Reference Range Interpretation Comme nts CHOLESTEROL (test code = 2210) 204 MG/DL TRIGLYCERIDES (test code = 2232) 168 MG/DL HDL CHOLESTEROL (test code = 2220) 37 MG/DL CALC LDL CHOL (test code = 2237) 136 MG/DL RISK RATIO LDL/HDL (test cod e = 2238) 3.68 RATIO COMPREHENSIVE METABOLIC [id number] 00:00:00* Test Item Value Reference Range Interpretation Comme nts GLUCOSE (test code = 2217) 80 MG/DL BUN (test code = 2208) 7 MG/DL CREATININE (test code = 2214) 0.59 MG/DL eGFR AMER. (test cod e = 01782) 120 ML/MIN/1.73 eGFR NON- AMER. (test code = 82437) 104 ML/MIN/1.73 CALC BUN/CREAT (test code = 2235) 12 RATIO SODIUM (test code = 2231) 142 MEQ/L POTASSIUM (test code = 2228) 4.5 MEQ/L CHLORIDE (test code = 2215) 101 MEQ/L CARBON DIOXIDE (test code = 2206) 25 MEQ/L CALCIUM (test code = 2209) 8.9 MG/DL PROTEIN, TOTAL (test code = 2229) 6.9 G/DL ALBUMIN (test code = 2201) 4.3 G/DL CALC GLOBULIN (test code = 2240) 2.6 G/DL CALC A/G RATIO (test code = 2234) 1.7 RATIO BILIRUBIN, TOTAL (test code = 2207) <0.2 MG/DL ALKALINE PHOSPHATASE (test code = 2204) 116 U/L AST (test code = 2218) 21 U/L ALT (test code = 2219) 22 U/L COMPREHENSIVE METABOLIC [id number] 00:00:00* Test Item Value Reference Range Interpretation Comme nts GLUCOSE (test code = 2217) 80 MG/DL BUN (test code = 2208) 7 MG/DL CREATININE (test code = 2214) 0.59 MG/DL eGFR AMER. (test cod e = 08337) 120 ML/MIN/1.73 eGFR NON- AMER. (test code = 73065) 104 ML/MIN/1.73 CALC BUN/CREAT (test code = 2235) 12 RATIO SODIUM (test code = 2231) 142 MEQ/L POTASSIUM (test code = 2228) 4.5 MEQ/L CHLORIDE (test code = 2215) 101 MEQ/L CARBON DIOXIDE (test code = 2206) 25 MEQ/L CALCIUM (test code = 2209) 8.9 MG/DL PROTEIN, TOTAL (test code = 2229) 6.9 G/DL ALBUMIN (test code = 2201) 4.3 G/DL CALC GLOBULIN (test code = 2240) 2.6 G/DL CALC A/G RATIO (test code = 2234) 1.7 RATIO BILIRUBIN, TOTAL (test code = 2207) <0.2 MG/DL ALKALINE PHOSPHATASE (test code = 2204) 116 U/L AST (test code = 2218) 21 U/L ALT (test code = 2219) 22 U/L LIPID [id number] 00:00:00* Test Item Value Reference Range Interpretation Comme nts CHOLESTEROL (test code = 2210) 204 MG/DL TRIGLYCERIDES (test code = 2232) 168 MG/DL HDL CHOLESTEROL (test code = 2220) 37 MG/DL CALC LDL CHOL (test code = 2237) 136 MG/DL RISK RATIO LDL/HDL (test cod e = 2238) 3.68 RATIO LIPID [id number] 00:00:00* Test Item Value Reference Range Interpretation Comme nts CHOLESTEROL (test code = 2210) 204 MG/DL TRIGLYCERIDES (test code = 2232) 168 MG/DL HDL CHOLESTEROL (test code = 2220) 37 MG/DL CALC LDL CHOL (test code = 2237) 136 MG/DL RISK RATIO LDL/HDL (test cod e = 2238) 3.68 RATIO [id number] 00:00:00* Test Item Value Reference Range Interpretation Comme nts TSH, THIRD GENERATION (test code = 2821) 3.440 UIU/ML [id number] 00:00:00* Test Item Value Reference Range Interpretation Comme nts TSH, THIRD GENERATION (test code = 2821) 3.440 UIU/ML [id number] 00:00:00* Test Item Value Reference Range Interpretation Comme nts TSH, THIRD GENERATION (test code = 2821) 3.440 UIU/ML [id number] 00:00:00* Test Item Value Reference Range Interpretation Comme nts TSH, THIRD GENERATION (test code = 2821) 3.440 UIU/ML [id number] 00:00:00* Test Item Value Reference Range Interpretation Comme nts TSH, THIRD GENERATION (test code = 2821) 3.440 UIU/ML [id number] 00:00:00* Test Item Value Reference Range Interpretation Comme nts TSH, THIRD GENERATION (test code = 2821) 3.440 UIU/ML [id number] 00:00:00* Test Item Value Reference Range Interpretation Comme nts TSH, THIRD GENERATION (test code = 2821) 3.440 UIU/ML [id number] 00:00:00* Test Item Value Reference Range Interpretation Comme nts TSH, THIRD GENERATION (test code = 2821) 3.440 UIU/ML [id number] 00:00:00* Test Item Value Reference Range Interpretation Comme nts TSH, THIRD GENERATION (test code = 2821) 3.440 UIU/ML [id number] 00:00:00* Test Item Value Reference Range Interpretation Comme nts TSH, THIRD GENERATION (test code = 2821) 3.440 UIU/ML [id number] 00:00:00* Test Item Value Reference Range Interpretation Comme nts TSH, THIRD GENERATION (test code = 2821) 3.440 UIU/ML LIPID [id number] 00:00:00* Test Item Value Reference Range Interpretation Comme nts CHOLESTEROL (test code = 2210) 257 MG/DL TRIGLYCERIDES (test code = 2232) 197 MG/DL HDL CHOLESTEROL (test code = 2220) 37 MG/DL CALC LDL CHOL (test code = 2237) 181 MG/DL RISK RATIO LDL/HDL (test cod e = 2238) 4.88 RATIO LIPID [id number] 00:00:00* Test Item Value Reference Range Interpretation Comme nts CHOLESTEROL (test code = 2210) 257 MG/DL TRIGLYCERIDES (test code = 2232) 197 MG/DL HDL CHOLESTEROL (test code = 2220) 37 MG/DL CALC LDL CHOL (test code = 2237) 181 MG/DL RISK RATIO LDL/HDL (test cod e = 2238) 4.88 RATIO COMPREHENSIVE METABOLIC [id number] 00:00:00* Test Item Value Reference Range Interpretation Comme nts GLUCOSE (test code = 2217) 95 MG/DL BUN (test code = 2208) 10 MG/DL CREATININE (test code = 2214) 0.63 MG/DL eGFR AMER. (test cod e = 97582) 119 ML/MIN/1.73 eGFR NON- AMER. (test code = 28981) 102 ML/MIN/1.73 CALC BUN/CREAT (test code = 2235) 16 RATIO SODIUM (test code = 2231) 143 MEQ/L POTASSIUM (test code = 2228) 4.4 MEQ/L CHLORIDE (test code = 2215) 103 MEQ/L CARBON DIOXIDE (test code = 2206) 29 MEQ/L CALCIUM (test code = 2209) 9.3 MG/DL PROTEIN, TOTAL (test code = 2229) 7.0 G/DL ALBUMIN (test code = 2201) 4.4 G/DL CALC GLOBULIN (test code = 2240) 2.6 G/DL CALC A/G RATIO (test code = 2234) 1.7 RATIO BILIRUBIN, TOTAL (test code = 2207) 0.4 MG/DL ALKALINE PHOSPHATASE (test code = 2204) 110 U/L AST (test code = 2218) 15 U/L ALT (test code = 2219) 14 U/L COMPREHENSIVE METABOLIC [id number] 00:00:00* Test Item Value Reference Range Interpretation Comme nts GLUCOSE (test code = 2217) 95 MG/DL BUN (test code = 2208) 10 MG/DL CREATININE (test code = 2214) 0.63 MG/DL eGFR AMER. (test cod e = 72490) 119 ML/MIN/1.73 eGFR NON- AMER. (test code = 95293) 102 ML/MIN/1.73 CALC BUN/CREAT (test code = 2235) 16 RATIO SODIUM (test code = 2231) 143 MEQ/L POTASSIUM (test code = 2228) 4.4 MEQ/L CHLORIDE (test code = 2215) 103 MEQ/L CARBON DIOXIDE (test code = 2206) 29 MEQ/L CALCIUM (test code = 2209) 9.3 MG/DL PROTEIN, TOTAL (test code = 2229) 7.0 G/DL ALBUMIN (test code = 2201) 4.4 G/DL CALC GLOBULIN (test code = 2240) 2.6 G/DL CALC A/G RATIO (test code = 2234) 1.7 RATIO BILIRUBIN, TOTAL (test code = 2207) 0.4 MG/DL ALKALINE PHOSPHATASE (test code = 2204) 110 U/L AST (test code = 2218) 15 U/L ALT (test code = 2219) 14 U/L [id number] 00:00:00* Test Item Value Reference Range Interpretation Comme nts TSH, THIRD GENERATION (test code = 2821) 2.040 UIU/ML [id number] 00:00:00* Test Item Value Reference Range Interpretation Comme nts TSH, THIRD GENERATION (test code = 2821) 2.040 UIU/ML [id number] 00:00:00* Test Item Value Reference Range Interpretation Comme nts TSH, THIRD GENERATION (test code = 2821) 2.040 UIU/ML LIPID [id number] 00:00:00* Test Item Value Reference Range Interpretation Comme nts CHOLESTEROL (test code = 2210) 257 MG/DL TRIGLYCERIDES (test code = 2232) 197 MG/DL HDL CHOLESTEROL (test code = 2220) 37 MG/DL CALC LDL CHOL (test code = 2237) 181 MG/DL RISK RATIO LDL/HDL (test cod e = 2238) 4.88 RATIO COMPREHENSIVE METABOLIC [id number] 00:00:00* Test Item Value Reference Range Interpretation Comme nts GLUCOSE (test code = 2217) 95 MG/DL BUN (test code = 2208) 10 MG/DL CREATININE (test code = 2214) 0.63 MG/DL eGFR AMER. (test cod e = 53498) 119 ML/MIN/1.73 eGFR NON- AMER. (test code = 85817) 102 ML/MIN/1.73 CALC BUN/CREAT (test code = 2235) 16 RATIO SODIUM (test code = 2231) 143 MEQ/L POTASSIUM (test code = 2228) 4.4 MEQ/L CHLORIDE (test code = 2215) 103 MEQ/L CARBON DIOXIDE (test code = 2206) 29 MEQ/L CALCIUM (test code = 2209) 9.3 MG/DL PROTEIN, TOTAL (test code = 2229) 7.0 G/DL ALBUMIN (test code = 2201) 4.4 G/DL CALC GLOBULIN (test code = 2240) 2.6 G/DL CALC A/G RATIO (test code = 2234) 1.7 RATIO BILIRUBIN, TOTAL (test code = 2207) 0.4 MG/DL ALKALINE PHOSPHATASE (test code = 2204) 110 U/L AST (test code = 2218) 15 U/L ALT (test code = 2219) 14 U/L [id number] 00:00:00* Test Item Value Reference Range Interpretation Comme nts TSH, THIRD GENERATION (test code = 2821) 2.040 UIU/ML [id number] 00:00:00* Test Item Value Reference Range Interpretation Comme nts TSH, THIRD GENERATION (test code = 2821) 2.040 UIU/ML LIPID [id number] 00:00:00* Test Item Value Reference Range Interpretation Comme nts CHOLESTEROL (test code = 2210) 257 MG/DL TRIGLYCERIDES (test code = 2232) 197 MG/DL HDL CHOLESTEROL (test code = 2220) 37 MG/DL CALC LDL CHOL (test code = 2237) 181 MG/DL RISK RATIO LDL/HDL (test cod e = 2238) 4.88 RATIO LIPID [id number] 00:00:00* Test Item Value Reference Range Interpretation Comme nts CHOLESTEROL (test code = 2210) 257 MG/DL TRIGLYCERIDES (test code = 2232) 197 MG/DL HDL CHOLESTEROL (test code = 2220) 37 MG/DL CALC LDL CHOL (test code = 2237) 181 MG/DL RISK RATIO LDL/HDL (test cod e = 2238) 4.88 RATIO COMPREHENSIVE METABOLIC [id number] 00:00:00* Test Item Value Reference Range Interpretation Comme nts GLUCOSE (test code = 2217) 95 MG/DL BUN (test code = 2208) 10 MG/DL CREATININE (test code = 2214) 0.63 MG/DL eGFR AMER. (test cod e = 25862) 119 ML/MIN/1.73 eGFR NON- AMER. (test code = 25049) 102 ML/MIN/1.73 CALC BUN/CREAT (test code = 2235) 16 RATIO SODIUM (test code = 2231) 143 MEQ/L POTASSIUM (test code = 2228) 4.4 MEQ/L CHLORIDE (test code = 2215) 103 MEQ/L CARBON DIOXIDE (test code = 2206) 29 MEQ/L CALCIUM (test code = 2209) 9.3 MG/DL PROTEIN, TOTAL (test code = 2229) 7.0 G/DL ALBUMIN (test code = 2201) 4.4 G/DL CALC GLOBULIN (test code = 2240) 2.6 G/DL CALC A/G RATIO (test code = 2234) 1.7 RATIO BILIRUBIN, TOTAL (test code = 2207) 0.4 MG/DL ALKALINE PHOSPHATASE (test code = 2204) 110 U/L AST (test code = 2218) 15 U/L ALT (test code = 2219) 14 U/L COMPREHENSIVE METABOLIC [id number] 00:00:00* Test Item Value Reference Range Interpretation Comme nts GLUCOSE (test code = 2217) 95 MG/DL BUN (test code = 2208) 10 MG/DL CREATININE (test code = 2214) 0.63 MG/DL eGFR AMER. (test cod e = 40360) 119 ML/MIN/1.73 eGFR NON- AMER. (test code = 17740) 102 ML/MIN/1.73 CALC BUN/CREAT (test code = 2235) 16 RATIO SODIUM (test code = 2231) 143 MEQ/L POTASSIUM (test code = 2228) 4.4 MEQ/L CHLORIDE (test code = 2215) 103 MEQ/L CARBON DIOXIDE (test code = 2206) 29 MEQ/L CALCIUM (test code = 2209) 9.3 MG/DL PROTEIN, TOTAL (test code = 2229) 7.0 G/DL ALBUMIN (test code = 2201) 4.4 G/DL CALC GLOBULIN (test code = 2240) 2.6 G/DL CALC A/G RATIO (test code = 2234) 1.7 RATIO BILIRUBIN, TOTAL (test code = 2207) 0.4 MG/DL ALKALINE PHOSPHATASE (test code = 2204) 110 U/L AST (test code = 2218) 15 U/L ALT (test code = 2219) 14 U/L [id number] 00:00:00* Test Item Value Reference Range Interpretation Comme nts TSH, THIRD GENERATION (test code = 2821) 2.040 UIU/ML [id number] 00:00:00* Test Item Value Reference Range Interpretation Comme nts TSH, THIRD GENERATION (test code = 2821) 2.040 UIU/ML [id number] 00:00:00* Test Item Value Reference Range Interpretation Comme nts TSH, THIRD GENERATION (test code = 2821) 2.040 UIU/ML LIPID [id number] 00:00:00* Test Item Value Reference Range Interpretation Comme nts CHOLESTEROL (test code = 2210) 257 MG/DL TRIGLYCERIDES (test code = 2232) 197 MG/DL HDL CHOLESTEROL (test code = 2220) 37 MG/DL CALC LDL CHOL (test code = 2237) 181 MG/DL RISK RATIO LDL/HDL (test cod e = 2238) 4.88 RATIO LIPID [id number] 00:00:00* Test Item Value Reference Range Interpretation Comme nts CHOLESTEROL (test code = 2210) 257 MG/DL TRIGLYCERIDES (test code = 2232) 197 MG/DL HDL CHOLESTEROL (test code = 2220) 37 MG/DL CALC LDL CHOL (test code = 2237) 181 MG/DL RISK RATIO LDL/HDL (test cod e = 2238) 4.88 RATIO COMPREHENSIVE METABOLIC [id number] 00:00:00* Test Item Value Reference Range Interpretation Comme nts GLUCOSE (test code = 2217) 95 MG/DL BUN (test code = 2208) 10 MG/DL CREATININE (test code = 2214) 0.63 MG/DL eGFR AMER. (test cod e = 47067) 119 ML/MIN/1.73 eGFR NON- AMER. (test code = 20522) 102 ML/MIN/1.73 CALC BUN/CREAT (test code = 2235) 16 RATIO SODIUM (test code = 2231) 143 MEQ/L POTASSIUM (test code = 2228) 4.4 MEQ/L CHLORIDE (test code = 2215) 103 MEQ/L CARBON DIOXIDE (test code = 2206) 29 MEQ/L CALCIUM (test code = 2209) 9.3 MG/DL PROTEIN, TOTAL (test code = 2229) 7.0 G/DL ALBUMIN (test code = 2201) 4.4 G/DL CALC GLOBULIN (test code = 2240) 2.6 G/DL CALC A/G RATIO (test code = 2234) 1.7 RATIO BILIRUBIN, TOTAL (test code = 2207) 0.4 MG/DL ALKALINE PHOSPHATASE (test code = 2204) 110 U/L AST (test code = 2218) 15 U/L ALT (test code = 2219) 14 U/L COMPREHENSIVE METABOLIC [id number] 00:00:00* Test Item Value Reference Range Interpretation Comme nts GLUCOSE (test code = 2217) 95 MG/DL BUN (test code = 2208) 10 MG/DL CREATININE (test code = 2214) 0.63 MG/DL eGFR AMER. (test cod e = 86012) 119 ML/MIN/1.73 eGFR NON- AMER. (test code = 96608) 102 ML/MIN/1.73 CALC BUN/CREAT (test code = 2235) 16 RATIO SODIUM (test code = 2231) 143 MEQ/L POTASSIUM (test code = 2228) 4.4 MEQ/L CHLORIDE (test code = 2215) 103 MEQ/L CARBON DIOXIDE (test code = 2206) 29 MEQ/L CALCIUM (test code = 2209) 9.3 MG/DL PROTEIN, TOTAL (test code = 2229) 7.0 G/DL ALBUMIN (test code = 2201) 4.4 G/DL CALC GLOBULIN (test code = 2240) 2.6 G/DL CALC A/G RATIO (test code = 2234) 1.7 RATIO BILIRUBIN, TOTAL (test code = 2207) 0.4 MG/DL ALKALINE PHOSPHATASE (test code = 2204) 110 U/L AST (test code = 2218) 15 U/L ALT (test code = 2219) 14 U/L [id number] 00:00:00* Test Item Value Reference Range Interpretation Comme nts TSH, THIRD GENERATION (test code = 2821) 2.040 UIU/ML [id number] 00:00:00* Test Item Value Reference Range Interpretation Comme nts TSH, THIRD GENERATION (test code = 2821) 2.040 UIU/ML [id number] 00:00:00* Test Item Value Reference Range Interpretation Comme nts TSH, THIRD GENERATION (test code = 2821) 2.040 UIU/ML LIPID [id number] 00:00:00* Test Item Value Reference Range Interpretation Comme nts CHOLESTEROL (test code = 2210) 241 MG/DL TRIGLYCERIDES (test code = 2232) 190 MG/DL HDL CHOLESTEROL (test code = 2220) 38 MG/DL CALC LDL CHOL (test code = 2237) 165 MG/DL RISK RATIO LDL/HDL (test cod e = 2238) 4.34 RATIO COMPREHENSIVE METABOLIC [id number] 00:00:00* Test Item Value Reference Range Interpretation Comme nts GLUCOSE (test code = 2217) 93 MG/DL BUN (test code = 2208) 8 MG/DL CREATININE (test code = 2214) 0.59 MG/DL eGFR AMER. (test cod e = 53290) 121 ML/MIN/1.73 eGFR NON- AMER. (test code = 95323) 105 ML/MIN/1.73 CALC BUN/CREAT (test code = 2235) 14 RATIO SODIUM (test code = 2231) 142 MEQ/L POTASSIUM (test code = 2228) 4.5 MEQ/L CHLORIDE (test code = 2215) 104 MEQ/L CARBON DIOXIDE (test code = 2206) 25 MEQ/L CALCIUM (test code = 2209) 9.2 MG/DL PROTEIN, TOTAL (test code = 2229) 6.8 G/DL ALBUMIN (test code = 2201) 4.2 G/DL CALC GLOBULIN (test code = 2240) 2.6 G/DL CALC A/G RATIO (test code = 2234) 1.6 RATIO BILIRUBIN, TOTAL (test code = 2207) 0.2 MG/DL ALKALINE PHOSPHATASE (test code = 2204) 109 U/L AST (test code = 2218) 15 U/L ALT (test code = 2219) 17 U/L COMPREHENSIVE METABOLIC [id number] 00:00:00* Test Item Value Reference Range Interpretation Comme nts GLUCOSE (test code = 2217) 93 MG/DL BUN (test code = 2208) 8 MG/DL CREATININE (test code = 2214) 0.59 MG/DL eGFR AMER. (test cod e = 16567) 121 ML/MIN/1.73 eGFR NON- AMER. (test code = 77049) 105 ML/MIN/1.73 CALC BUN/CREAT (test code = 2235) 14 RATIO SODIUM (test code = 2231) 142 MEQ/L POTASSIUM (test code = 2228) 4.5 MEQ/L CHLORIDE (test code = 2215) 104 MEQ/L CARBON DIOXIDE (test code = 2206) 25 MEQ/L CALCIUM (test code = 2209) 9.2 MG/DL PROTEIN, TOTAL (test code = 2229) 6.8 G/DL ALBUMIN (test code = 2201) 4.2 G/DL CALC GLOBULIN (test code = 2240) 2.6 G/DL CALC A/G RATIO (test code = 2234) 1.6 RATIO BILIRUBIN, TOTAL (test code = 2207) 0.2 MG/DL ALKALINE PHOSPHATASE (test code = 2204) 109 U/L AST (test code = 2218) 15 U/L ALT (test code = 2219) 17 U/L [id number] 00:00:00* Test Item Value Reference Range Interpretation Comme nts TSH, THIRD GENERATION (test code = 2821) 4.260 UIU/ML [id number] 00:00:00* Test Item Value Reference Range Interpretation Comme nts TSH, THIRD GENERATION (test code = 2821) 4.260 UIU/ML [id number] 00:00:00* Test Item Value Reference Range Interpretation Comme nts TSH, THIRD GENERATION (test code = 2821) 4.260 UIU/ML LIPID [id number] 00:00:00* Test Item Value Reference Range Interpretation Comme nts CHOLESTEROL (test code = 2210) 241 MG/DL TRIGLYCERIDES (test code = 2232) 190 MG/DL HDL CHOLESTEROL (test code = 2220) 38 MG/DL CALC LDL CHOL (test code = 2237) 165 MG/DL RISK RATIO LDL/HDL (test cod e = 2238) 4.34 RATIO COMPREHENSIVE METABOLIC [id number] 00:00:00* Test Item Value Reference Range Interpretation Comme nts GLUCOSE (test code = 2217) 93 MG/DL BUN (test code = 2208) 8 MG/DL CREATININE (test code = 2214) 0.59 MG/DL eGFR AMER. (test cod e = 14254) 121 ML/MIN/1.73 eGFR NON- AMER. (test code = 02425) 105 ML/MIN/1.73 CALC BUN/CREAT (test code = 2235) 14 RATIO SODIUM (test code = 2231) 142 MEQ/L POTASSIUM (test code = 2228) 4.5 MEQ/L CHLORIDE (test code = 2215) 104 MEQ/L CARBON DIOXIDE (test code = 2206) 25 MEQ/L CALCIUM (test code = 2209) 9.2 MG/DL PROTEIN, TOTAL (test code = 2229) 6.8 G/DL ALBUMIN (test code = 2201) 4.2 G/DL CALC GLOBULIN (test code = 2240) 2.6 G/DL CALC A/G RATIO (test code = 2234) 1.6 RATIO BILIRUBIN, TOTAL (test code = 2207) 0.2 MG/DL ALKALINE PHOSPHATASE (test code = 2204) 109 U/L AST (test code = 2218) 15 U/L ALT (test code = 2219) 17 U/L [id number] 00:00:00* Test Item Value Reference Range Interpretation Comme nts TSH, THIRD GENERATION (test code = 2821) 4.260 UIU/ML [id number] 00:00:00* Test Item Value Reference Range Interpretation Comme nts TSH, THIRD GENERATION (test code = 2821) 4.260 UIU/ML LIPID [id number] 00:00:00* Test Item Value Reference Range Interpretation Comme nts CHOLESTEROL (test code = 2210) 241 MG/DL TRIGLYCERIDES (test code = 2232) 190 MG/DL HDL CHOLESTEROL (test code = 2220) 38 MG/DL CALC LDL CHOL (test code = 2237) 165 MG/DL RISK RATIO LDL/HDL (test cod e = 2238) 4.34 RATIO LIPID [id number] 00:00:00* Test Item Value Reference Range Interpretation Comme nts CHOLESTEROL (test code = 2210) 241 MG/DL TRIGLYCERIDES (test code = 2232) 190 MG/DL HDL CHOLESTEROL (test code = 2220) 38 MG/DL CALC LDL CHOL (test code = 2237) 165 MG/DL RISK RATIO LDL/HDL (test cod e = 2238) 4.34 RATIO COMPREHENSIVE METABOLIC [id number] 00:00:00* Test Item Value Reference Range Interpretation Comme nts GLUCOSE (test code = 2217) 93 MG/DL BUN (test code = 2208) 8 MG/DL CREATININE (test code = 2214) 0.59 MG/DL eGFR AMER. (test cod e = 37269) 121 ML/MIN/1.73 eGFR NON- AMER. (test code = 24282) 105 ML/MIN/1.73 CALC BUN/CREAT (test code = 2235) 14 RATIO SODIUM (test code = 2231) 142 MEQ/L POTASSIUM (test code = 2228) 4.5 MEQ/L CHLORIDE (test code = 2215) 104 MEQ/L CARBON DIOXIDE (test code = 2206) 25 MEQ/L CALCIUM (test code = 2209) 9.2 MG/DL PROTEIN, TOTAL (test code = 2229) 6.8 G/DL ALBUMIN (test code = 2201) 4.2 G/DL CALC GLOBULIN (test code = 2240) 2.6 G/DL CALC A/G RATIO (test code = 2234) 1.6 RATIO BILIRUBIN, TOTAL (test code = 2207) 0.2 MG/DL ALKALINE PHOSPHATASE (test code = 2204) 109 U/L AST (test code = 2218) 15 U/L ALT (test code = 2219) 17 U/L COMPREHENSIVE METABOLIC [id number] 00:00:00* Test Item Value Reference Range Interpretation Comme nts GLUCOSE (test code = 2217) 93 MG/DL BUN (test code = 2208) 8 MG/DL CREATININE (test code = 2214) 0.59 MG/DL eGFR AMER. (test cod e = 74275) 121 ML/MIN/1.73 eGFR NON- AMER. (test code = 67649) 105 ML/MIN/1.73 CALC BUN/CREAT (test code = 2235) 14 RATIO SODIUM (test code = 2231) 142 MEQ/L POTASSIUM (test code = 2228) 4.5 MEQ/L CHLORIDE (test code = 2215) 104 MEQ/L CARBON DIOXIDE (test code = 2206) 25 MEQ/L CALCIUM (test code = 2209) 9.2 MG/DL PROTEIN, TOTAL (test code = 2229) 6.8 G/DL ALBUMIN (test code = 2201) 4.2 G/DL CALC GLOBULIN (test code = 2240) 2.6 G/DL CALC A/G RATIO (test code = 2234) 1.6 RATIO BILIRUBIN, TOTAL (test code = 2207) 0.2 MG/DL ALKALINE PHOSPHATASE (test code = 2204) 109 U/L AST (test code = 2218) 15 U/L ALT (test code = 2219) 17 U/L [id number] 00:00:00* Test Item Value Reference Range Interpretation Comme nts TSH, THIRD GENERATION (test code = 2821) 4.260 UIU/ML [id number] 00:00:00* Test Item Value Reference Range Interpretation Comme nts TSH, THIRD GENERATION (test code = 2821) 4.260 UIU/ML [id number] 00:00:00* Test Item Value Reference Range Interpretation Comme nts TSH, THIRD GENERATION (test code = 2821) 4.260 UIU/ML LIPID [id number] 00:00:00* Test Item Value Reference Range Interpretation Comme nts CHOLESTEROL (test code = 2210) 241 MG/DL TRIGLYCERIDES (test code = 2232) 190 MG/DL HDL CHOLESTEROL (test code = 2220) 38 MG/DL CALC LDL CHOL (test code = 2237) 165 MG/DL RISK RATIO LDL/HDL (test cod e = 2238) 4.34 RATIO LIPID [id number] 00:00:00* Test Item Value Reference Range Interpretation Comme nts CHOLESTEROL (test code = 2210) 241 MG/DL TRIGLYCERIDES (test code = 2232) 190 MG/DL HDL CHOLESTEROL (test code = 2220) 38 MG/DL CALC LDL CHOL (test code = 2237) 165 MG/DL RISK RATIO LDL/HDL (test cod e = 2238) 4.34 RATIO COMPREHENSIVE METABOLIC [id number] 00:00:00* Test Item Value Reference Range Interpretation Comme nts GLUCOSE (test code = 2217) 93 MG/DL BUN (test code = 2208) 8 MG/DL CREATININE (test code = 2214) 0.59 MG/DL eGFR AMER. (test cod e = 47444) 121 ML/MIN/1.73 eGFR NON- AMER. (test code = 32761) 105 ML/MIN/1.73 CALC BUN/CREAT (test code = 2235) 14 RATIO SODIUM (test code = 2231) 142 MEQ/L POTASSIUM (test code = 2228) 4.5 MEQ/L CHLORIDE (test code = 2215) 104 MEQ/L CARBON DIOXIDE (test code = 2206) 25 MEQ/L CALCIUM (test code = 2209) 9.2 MG/DL PROTEIN, TOTAL (test code = 2229) 6.8 G/DL ALBUMIN (test code = 2201) 4.2 G/DL CALC GLOBULIN (test code = 2240) 2.6 G/DL CALC A/G RATIO (test code = 2234) 1.6 RATIO BILIRUBIN, TOTAL (test code = 2207) 0.2 MG/DL ALKALINE PHOSPHATASE (test code = 2204) 109 U/L AST (test code = 2218) 15 U/L ALT (test code = 2219) 17 U/L COMPREHENSIVE METABOLIC [id number] 00:00:00* Test Item Value Reference Range Interpretation Comme nts GLUCOSE (test code = 2217) 93 MG/DL BUN (test code = 2208) 8 MG/DL CREATININE (test code = 2214) 0.59 MG/DL eGFR AMER. (test cod e = 29407) 121 ML/MIN/1.73 eGFR NON- AMER. (test code = 93577) 105 ML/MIN/1.73 CALC BUN/CREAT (test code = 2235) 14 RATIO SODIUM (test code = 2231) 142 MEQ/L POTASSIUM (test code = 2228) 4.5 MEQ/L CHLORIDE (test code = 2215) 104 MEQ/L CARBON DIOXIDE (test code = 2206) 25 MEQ/L CALCIUM (test code = 2209) 9.2 MG/DL PROTEIN, TOTAL (test code = 2229) 6.8 G/DL ALBUMIN (test code = 2201) 4.2 G/DL CALC GLOBULIN (test code = 2240) 2.6 G/DL CALC A/G RATIO (test code = 2234) 1.6 RATIO BILIRUBIN, TOTAL (test code = 2207) 0.2 MG/DL ALKALINE PHOSPHATASE (test code = 2204) 109 U/L AST (test code = 2218) 15 U/L ALT (test code = 2219) 17 U/L [id number] 00:00:00* Test Item Value Reference Range Interpretation Comme nts TSH, THIRD GENERATION (test code = 2821) 4.260 UIU/ML [id number] 00:00:00* Test Item Value Reference Range Interpretation Comme nts TSH, THIRD GENERATION (test code = 2821) 4.260 UIU/ML [id number] 00:00:00* Test Item Value Reference Range Interpretation Comme nts TSH, THIRD GENERATION (test code = 2821) 4.260 UIU/ML LIPID [id number] 00:00:00* Test Item Value Reference Range Interpretation Comme nts CHOLESTEROL (test code = 2210) 241 MG/DL TRIGLYCERIDES (test code = 2232) 190 MG/DL HDL CHOLESTEROL (test code = 2220) 38 MG/DL CALC LDL CHOL (test code = 2237) 165 MG/DL RISK RATIO LDL/HDL (test cod e = 2238) 4.34 RATIO COMPREHENSIVE METABOLIC [id number] 00:00:00* Test Item Value Reference Range Interpretation Comme nts GLUCOSE (test code = 2217) 78 MG/DL BUN (test code = 2208) 8 MG/DL CREATININE (test code = 2214) 0.60 MG/DL eGFR AMER. (test cod e = 46107) 121 ML/MIN/1.73 eGFR NON- AMER. (test code = 82925) 104 ML/MIN/1.73 CALC BUN/CREAT (test code = 2235) 13 RATIO SODIUM (test code = 2231) 141 MEQ/L POTASSIUM (test code = 2228) 4.7 MEQ/L CHLORIDE (test code = 2215) 103 MEQ/L CARBON DIOXIDE (test code = 2206) 26 MEQ/L CALCIUM (test code = 2209) 9.3 MG/DL PROTEIN, TOTAL (test code = 2229) 7.4 G/DL ALBUMIN (test code = 2201) 4.5 G/DL CALC GLOBULIN (test code = 2240) 2.9 G/DL CALC A/G RATIO (test code = 2234) 1.6 RATIO BILIRUBIN, TOTAL (test code = 2207) 0.2 MG/DL ALKALINE PHOSPHATASE (test code = 2204) 124 U/L AST (test code = 2218) 15 U/L ALT (test code = 2219) 15 U/L COMPREHENSIVE METABOLIC [id number] 00:00:00* Test Item Value Reference Range Interpretation Comme nts GLUCOSE (test code = 2217) 78 MG/DL BUN (test code = 2208) 8 MG/DL CREATININE (test code = 2214) 0.60 MG/DL eGFR AMER. (test cod e = 84793) 121 ML/MIN/1.73 eGFR NON- AMER. (test code = 80484) 104 ML/MIN/1.73 CALC BUN/CREAT (test code = 2235) 13 RATIO SODIUM (test code = 2231) 141 MEQ/L POTASSIUM (test code = 2228) 4.7 MEQ/L CHLORIDE (test code = 2215) 103 MEQ/L CARBON DIOXIDE (test code = 2206) 26 MEQ/L CALCIUM (test code = 2209) 9.3 MG/DL PROTEIN, TOTAL (test code = 2229) 7.4 G/DL ALBUMIN (test code = 2201) 4.5 G/DL CALC GLOBULIN (test code = 2240) 2.9 G/DL CALC A/G RATIO (test code = 2234) 1.6 RATIO BILIRUBIN, TOTAL (test code = 2207) 0.2 MG/DL ALKALINE PHOSPHATASE (test code = 2204) 124 U/L AST (test code = 2218) 15 U/L ALT (test code = 2219) 15 U/L COMPREHENSIVE METABOLIC [id number] 00:00:00* Test Item Value Reference Range Interpretation Comme nts GLUCOSE (test code = 2217) 78 MG/DL BUN (test code = 2208) 8 MG/DL CREATININE (test code = 2214) 0.60 MG/DL eGFR AMER. (test cod e = 63177) 121 ML/MIN/1.73 eGFR NON- AMER. (test code = 75287) 104 ML/MIN/1.73 CALC BUN/CREAT (test code = 2235) 13 RATIO SODIUM (test code = 2231) 141 MEQ/L POTASSIUM (test code = 2228) 4.7 MEQ/L CHLORIDE (test code = 2215) 103 MEQ/L CARBON DIOXIDE (test code = 2206) 26 MEQ/L CALCIUM (test code = 2209) 9.3 MG/DL PROTEIN, TOTAL (test code = 2229) 7.4 G/DL ALBUMIN (test code = 2201) 4.5 G/DL CALC GLOBULIN (test code = 2240) 2.9 G/DL CALC A/G RATIO (test code = 2234) 1.6 RATIO BILIRUBIN, TOTAL (test code = 2207) 0.2 MG/DL ALKALINE PHOSPHATASE (test code = 2204) 124 U/L AST (test code = 2218) 15 U/L ALT (test code = 2219) 15 U/L COMPREHENSIVE METABOLIC [id number] 00:00:00* Test Item Value Reference Range Interpretation Comme nts GLUCOSE (test code = 2217) 78 MG/DL BUN (test code = 2208) 8 MG/DL CREATININE (test code = 2214) 0.60 MG/DL eGFR AMER. (test cod e = 67762) 121 ML/MIN/1.73 eGFR NON- AMER. (test code = 25848) 104 ML/MIN/1.73 CALC BUN/CREAT (test code = 2235) 13 RATIO SODIUM (test code = 2231) 141 MEQ/L POTASSIUM (test code = 2228) 4.7 MEQ/L CHLORIDE (test code = 2215) 103 MEQ/L CARBON DIOXIDE (test code = 2206) 26 MEQ/L CALCIUM (test code = 2209) 9.3 MG/DL PROTEIN, TOTAL (test code = 2229) 7.4 G/DL ALBUMIN (test code = 2201) 4.5 G/DL CALC GLOBULIN (test code = 2240) 2.9 G/DL CALC A/G RATIO (test code = 2234) 1.6 RATIO BILIRUBIN, TOTAL (test code = 2207) 0.2 MG/DL ALKALINE PHOSPHATASE (test code = 2204) 124 U/L AST (test code = 2218) 15 U/L ALT (test code = 2219) 15 U/L COMPREHENSIVE METABOLIC [id number] 00:00:00* Test Item Value Reference Range Interpretation Comme nts GLUCOSE (test code = 2217) 78 MG/DL BUN (test code = 2208) 8 MG/DL CREATININE (test code = 2214) 0.60 MG/DL eGFR AMER. (test cod e = 39816) 121 ML/MIN/1.73 eGFR NON- AMER. (test code = 45609) 104 ML/MIN/1.73 CALC BUN/CREAT (test code = 2235) 13 RATIO SODIUM (test code = 2231) 141 MEQ/L POTASSIUM (test code = 2228) 4.7 MEQ/L CHLORIDE (test code = 2215) 103 MEQ/L CARBON DIOXIDE (test code = 2206) 26 MEQ/L CALCIUM (test code = 2209) 9.3 MG/DL PROTEIN, TOTAL (test code = 2229) 7.4 G/DL ALBUMIN (test code = 2201) 4.5 G/DL CALC GLOBULIN (test code = 2240) 2.9 G/DL CALC A/G RATIO (test code = 2234) 1.6 RATIO BILIRUBIN, TOTAL (test code = 2207) 0.2 MG/DL ALKALINE PHOSPHATASE (test code = 2204) 124 U/L AST (test code = 2218) 15 U/L ALT (test code = 2219) 15 U/L COMPREHENSIVE METABOLIC [id number] 00:00:00* Test Item Value Reference Range Interpretation Comme nts GLUCOSE (test code = 2217) 78 MG/DL BUN (test code = 2208) 8 MG/DL CREATININE (test code = 2214) 0.60 MG/DL eGFR AMER. (test cod e = 54886) 121 ML/MIN/1.73 eGFR NON- AMER. (test code = 39475) 104 ML/MIN/1.73 CALC BUN/CREAT (test code = 2235) 13 RATIO SODIUM (test code = 2231) 141 MEQ/L POTASSIUM (test code = 2228) 4.7 MEQ/L CHLORIDE (test code = 2215) 103 MEQ/L CARBON DIOXIDE (test code = 2206) 26 MEQ/L CALCIUM (test code = 2209) 9.3 MG/DL PROTEIN, TOTAL (test code = 2229) 7.4 G/DL ALBUMIN (test code = 2201) 4.5 G/DL CALC GLOBULIN (test code = 2240) 2.9 G/DL CALC A/G RATIO (test code = 2234) 1.6 RATIO BILIRUBIN, TOTAL (test code = 2207) 0.2 MG/DL ALKALINE PHOSPHATASE (test code = 2204) 124 U/L AST (test code = 2218) 15 U/L ALT (test code = 2219) 15 U/L COMPREHENSIVE METABOLIC [id number] 00:00:00* Test Item Value Reference Range Interpretation Comme nts GLUCOSE (test code = 2217) 78 MG/DL BUN (test code = 2208) 8 MG/DL CREATININE (test code = 2214) 0.60 MG/DL eGFR AMER. (test cod e = 71618) 121 ML/MIN/1.73 eGFR NON- AMER. (test code = 16448) 104 ML/MIN/1.73 CALC BUN/CREAT (test code = 2235) 13 RATIO SODIUM (test code = 2231) 141 MEQ/L POTASSIUM (test code = 2228) 4.7 MEQ/L CHLORIDE (test code = 2215) 103 MEQ/L CARBON DIOXIDE (test code = 2206) 26 MEQ/L CALCIUM (test code = 2209) 9.3 MG/DL PROTEIN, TOTAL (test code = 2229) 7.4 G/DL ALBUMIN (test code = 2201) 4.5 G/DL CALC GLOBULIN (test code = 2240) 2.9 G/DL CALC A/G RATIO (test code = 2234) 1.6 RATIO BILIRUBIN, TOTAL (test code = 2207) 0.2 MG/DL ALKALINE PHOSPHATASE (test code = 2204) 124 U/L AST (test code = 2218) 15 U/L ALT (test code = 2219) 15 U/L HEMOGLOBIN [id number] 00:00:00* Test Item Value Reference Range Interpretation Comme nts HEMOGLOBIN A1c (test code = 40770) 5.4 % HEMOGLOBIN [id number] 00:00:00* Test Item Value Reference Range Interpretation Comme nts HEMOGLOBIN A1c (test code = 11691) 5.4 % HEMOGLOBIN [id number] 00:00:00* Test Item Value Reference Range Interpretation Comme nts HEMOGLOBIN A1c (test code = 44811) 5.4 % HEMOGLOBIN [id number] 00:00:00* Test Item Value Reference Range Interpretation Comme nts HEMOGLOBIN A1c (test code = 89082) 5.4 % HEMOGLOBIN [id number] 00:00:00* Test Item Value Reference Range Interpretation Comme nts HEMOGLOBIN A1c (test code = 27731) 5.4 % HEMOGLOBIN [id number] 00:00:00* Test Item Value Reference Range Interpretation Comme nts HEMOGLOBIN A1c (test code = 51589) 5.4 % HEMOGLOBIN [id number] 00:00:00* Test Item Value Reference Range Interpretation Comme nts HEMOGLOBIN A1c (test code = 01673) 5.4 % HEMOGLOBIN [id number] 00:00:00* Test Item Value Reference Range Interpretation Comme nts HEMOGLOBIN A1c (test code = 84472) 5.4 % HEMOGLOBIN [id number] 00:00:00* Test Item Value Reference Range Interpretation Comme nts HEMOGLOBIN A1c (test code = 95348) 5.4 % HEMOGLOBIN [id number] 00:00:00* Test Item Value Reference Range Interpretation Comme nts HEMOGLOBIN A1c (test code = 18732) 5.4 % HEMOGLOBIN [id number] 00:00:00* Test Item Value Reference Range Interpretation Comme nts HEMOGLOBIN A1c (test code = 62886) 5.4 % CULTURE, URINE, [id number] 00:00:00* Test Item Value Reference Range Interpretation Comme nts CULTURE, URINE, ROUTINE (deven t code = 630-4) SEE NOTE CULTURE, URINE, [id number] 00:00:00* Test Item Value Reference Range Interpretation Comme nts CULTURE, URINE, ROUTINE (deven t code = 630-4) SEE NOTE CULTURE, URINE, [id number] 00:00:00* Test Item Value Reference Range Interpretation Comme nts CULTURE, URINE, ROUTINE (deven t code = 630-4) SEE NOTE CULTURE, URINE, [id number] 00:00:00* Test Item Value Reference Range Interpretation Comme nts CULTURE, URINE, ROUTINE (deven t code = 630-4) SEE NOTE [id number] 00:00:00* Test Item Value Reference Range Interpretation Comme nts TSH (test code = 3016-3) 4.00 mIU/L LIPID PANEL WITH REFLEX TO DIRECT [id number] 00:00:00* Test Item Value Reference Range Interpretation Comme nts CHOLESTEROL, TOTAL (test cod e = 2093-3) 206 mg/dL HDL CHOLESTEROL (test code = 2085-9) 33 mg/dL TRIGLYCERIDES (test code = 2571-8) 172 mg/dL LDL-CHOLESTEROL (test code = 16581-9) 142 mg/dL(calc) CHOL/HDLC RATIO (test code = 9830-1) 6.2 (calc) NON HDL CHOLESTEROL (test code = 53407-7) 173 mg/dL(calc) [id number] 00:00:00* Test Item Value Reference Range Interpretation Comme nts TSH (test code = 3016-3) 4.00 mIU/L LIPID PANEL WITH REFLEX TO DIRECT [id number] 00:00:00* Test Item Value Reference Range Interpretation Comme nts CHOLESTEROL, TOTAL (test cod e = 2093-3) 206 mg/dL HDL CHOLESTEROL (test code = 2085-9) 33 mg/dL TRIGLYCERIDES (test code = 2571-8) 172 mg/dL LDL-CHOLESTEROL (test code = 38043-1) 142 mg/dL(calc) CHOL/HDLC RATIO (test code = 9830-1) 6.2 (calc) NON HDL CHOLESTEROL (test code = 23397-6) 173 mg/dL(calc) [id number] 00:00:00* Test Item Value Reference Range Interpretation Comme nts TSH (test code = 3016-3) 4.00 mIU/L LIPID PANEL WITH REFLEX TO DIRECT [id number] 00:00:00* Test Item Value Reference Range Interpretation Comme nts CHOLESTEROL, TOTAL (test cod e = 2093-3) 206 mg/dL HDL CHOLESTEROL (test code = 2085-9) 33 mg/dL TRIGLYCERIDES (test code = 2571-8) 172 mg/dL LDL-CHOLESTEROL (test code = 69167-5) 142 mg/dL(calc) CHOL/HDLC RATIO (test code = 9830-1) 6.2 (calc) NON HDL CHOLESTEROL (test code = 98830-2) 173 mg/dL(calc) [id number] 00:00:00* Test Item Value Reference Range Interpretation Comme nts TSH (test code = 3016-3) 4.00 mIU/L LIPID PANEL WITH REFLEX TO DIRECT [id number] 00:00:00* Test Item Value Reference Range Interpretation Comme nts CHOLESTEROL, TOTAL (test cod e = 2093-3) 206 mg/dL HDL CHOLESTEROL (test code = 2085-9) 33 mg/dL TRIGLYCERIDES (test code = 2571-8) 172 mg/dL LDL-CHOLESTEROL (test code = 81622-8) 142 mg/dL(calc) CHOL/HDLC RATIO (test code = 9830-1) 6.2 (calc) NON HDL CHOLESTEROL (test code = 98885-0) 173 mg/dL(calc) [id number] 00:00:00* Test Item Value Reference Range Interpretation Comme nts GGT (test code = 2324-2) 11 U/L [id number] 00:00:00* Test Item Value Reference Range Interpretation Comme nts GGT (test code = 2324-2) 11 U/L [id number] 00:00:00* Test Item Value Reference Range Interpretation Comme nts GGT (test code = 2324-2) 11 U/L [id number] 00:00:00* Test Item Value Reference Range Interpretation Comme nts GGT (test code = 2324-2) 11 U/L COMPREHENSIVE METABOLIC [id number] 00:00:00* Test Item Value Reference Range Interpretation Comme nts GLUCOSE (test code = 2345-7) 97 mg/dL UREA NITROGEN (BUN) (test code = 3094-0) 13 mg/dL CREATININE (test code = 2160-0) 0.73 mg/dL eGFR NON-AFR. TUNISIAN (test code = 16548-5) 95 mL/min/1.73m2 eGFR (test code = 24935-3) 111 mL/min/1.73m2 BUN/CREATININE RATIO (test code = 3097-3) NOT APPLICABLE (calc) SODIUM (test code = 2951-2) 140 mmol/L POTASSIUM (test code = 2823-3) 4.7 mmol/L CHLORIDE (test code = 2075-0) 102 mmol/L CARBON DIOXIDE (test code = 2027-9) 29 mmol/L CALCIUM (test code = 66588-3) 9.7 mg/dL PROTEIN, TOTAL (test code = 2885-2) 7.6 g/dL ALBUMIN (test code = 1751-7) 4.4 g/dL GLOBULIN (test code = 97337-4) 3.2 g/dL(calc) ALBUMIN/GLOBULIN RATIO (test code = 1759-0) 1.4 (calc) BILIRUBIN, TOTAL (test code = 1975-2) 0.3 mg/dL ALKALINE PHOSPHATASE (test code = 6768-6) 143 U/L AST (test code = 1920-8) 19 U/L ALT (test code = 1742-6) 15 U/L LIPID [id number] 00:00:00* Test Item Value Reference Range Interpretation Comme nts CHOLESTEROL, TOTAL (test cod e = 3-3) 237 mg/dL HDL CHOLESTEROL (test code = 5-9) 40 mg/dL TRIGLYCERIDES (test code = 2571-8) 268 mg/dL LDL-CHOLESTEROL (test code = 53434-0) 153 mg/dL(calc) CHOL/HDLC RATIO (test code = 9830-1) 5.9 (calc) NON HDL CHOLESTEROL (test code = 67961-2) 197 mg/dL(calc) [id number] 00:00:00* Test Item Value Reference Range Interpretation Comme nts TSH (test code = 3016-3) 1.20 mIU/L COMPREHENSIVE METABOLIC [id number] 00:00:00* Test Item Value Reference Range Interpretation Comme nts GLUCOSE (test code = 2345-7) 97 mg/dL UREA NITROGEN (BUN) (test code = 3094-0) 13 mg/dL CREATININE (test code = 2160-0) 0.73 mg/dL eGFR NON-AFR. TUNISIAN (test code = 93227-7) 95 mL/min/1.73m2 eGFR (test code = 86432-8) 111 mL/min/1.73m2 BUN/CREATININE RATIO (test code = 3097-3) NOT APPLICABLE (calc) SODIUM (test code = 2951-2) 140 mmol/L POTASSIUM (test code = 2823-3) 4.7 mmol/L CHLORIDE (test code = 2075-0) 102 mmol/L CARBON DIOXIDE (test code = 2027-9) 29 mmol/L CALCIUM (test code = 78868-5) 9.7 mg/dL PROTEIN, TOTAL (test code = 2885-2) 7.6 g/dL ALBUMIN (test code = 1751-7) 4.4 g/dL GLOBULIN (test code = 57848-5) 3.2 g/dL(calc) ALBUMIN/GLOBULIN RATIO (test code = 1759-0) 1.4 (calc) BILIRUBIN, TOTAL (test code = 1975-2) 0.3 mg/dL ALKALINE PHOSPHATASE (test code = 6768-6) 143 U/L AST (test code = 1920-8) 19 U/L ALT (test code = 1742-6) 15 U/L LIPID [id number] 00:00:00* Test Item Value Reference Range Interpretation Comme nts CHOLESTEROL, TOTAL (test cod e = 2092-3) 237 mg/dL HDL CHOLESTEROL (test code = 5-9) 40 mg/dL TRIGLYCERIDES (test code = 2571-8) 268 mg/dL LDL-CHOLESTEROL (test code = 56865-9) 153 mg/dL(calc) CHOL/HDLC RATIO (test code = 9830-1) 5.9 (calc) NON HDL CHOLESTEROL (test code = 41805-7) 197 mg/dL(calc) [id number] 00:00:00* Test Item Value Reference Range Interpretation Comme nts TSH (test code = 3016-3) 1.20 mIU/L COMPREHENSIVE METABOLIC [id number] 00:00:00* Test Item Value Reference Range Interpretation Comme nts GLUCOSE (test code = 2345-7) 97 mg/dL UREA NITROGEN (BUN) (test code = 3094-0) 13 mg/dL CREATININE (test code = 2160-0) 0.73 mg/dL eGFR NON-AFR. TUNISIAN (test code = 84271-8) 95 mL/min/1.73m2 eGFR (test code = 02103-7) 111 mL/min/1.73m2 BUN/CREATININE RATIO (test code = 3097-3) NOT APPLICABLE (calc) SODIUM (test code = 2951-2) 140 mmol/L POTASSIUM (test code = 2823-3) 4.7 mmol/L CHLORIDE (test code = 2075-0) 102 mmol/L CARBON DIOXIDE (test code = 2027-9) 29 mmol/L CALCIUM (test code = 65546-4) 9.7 mg/dL PROTEIN, TOTAL (test code = 2885-2) 7.6 g/dL ALBUMIN (test code = 1751-7) 4.4 g/dL GLOBULIN (test code = 09359-4) 3.2 g/dL(calc) ALBUMIN/GLOBULIN RATIO (test code = 1759-0) 1.4 (calc) BILIRUBIN, TOTAL (test code = 1975-2) 0.3 mg/dL ALKALINE PHOSPHATASE (test code = 6768-6) 143 U/L AST (test code = 1920-8) 19 U/L ALT (test code = 1742-6) 15 U/L LIPID [id number] 00:00:00* Test Item Value Reference Range Interpretation Comme nts CHOLESTEROL, TOTAL (test cod e = 3-3) 237 mg/dL HDL CHOLESTEROL (test code = 5-9) 40 mg/dL TRIGLYCERIDES (test code = 2571-8) 268 mg/dL LDL-CHOLESTEROL (test code = 93489-0) 153 mg/dL(calc) CHOL/HDLC RATIO (test code = 9830-1) 5.9 (calc) NON HDL CHOLESTEROL (test code = 87215-8) 197 mg/dL(calc) [id number] 00:00:00* Test Item Value Reference Range Interpretation Comme nts TSH (test code = 3016-3) 1.20 mIU/L COMPREHENSIVE METABOLIC [id number] 00:00:00* Test Item Value Reference Range Interpretation Comme nts GLUCOSE (test code = 2345-7) 97 mg/dL UREA NITROGEN (BUN) (test code = 3094-0) 13 mg/dL CREATININE (test code = 2160-0) 0.73 mg/dL eGFR NON-AFR. TUNISIAN (test code = 97805-2) 95 mL/min/1.73m2 eGFR (test code = 35087-3) 111 mL/min/1.73m2 BUN/CREATININE RATIO (test code = 3097-3) NOT APPLICABLE (calc) SODIUM (test code = 2951-2) 140 mmol/L POTASSIUM (test code = 2823-3) 4.7 mmol/L CHLORIDE (test code = 2075-0) 102 mmol/L CARBON DIOXIDE (test code = 2027-9) 29 mmol/L CALCIUM (test code = 95435-2) 9.7 mg/dL PROTEIN, TOTAL (test code = 2885-2) 7.6 g/dL ALBUMIN (test code = 1751-7) 4.4 g/dL GLOBULIN (test code = 80862-9) 3.2 g/dL(calc) ALBUMIN/GLOBULIN RATIO (test code = 1759-0) 1.4 (calc) BILIRUBIN, TOTAL (test code = 1975-2) 0.3 mg/dL ALKALINE PHOSPHATASE (test code = 6768-6) 143 U/L AST (test code = 1920-8) 19 U/L ALT (test code = 1742-6) 15 U/L LIPID [id number] 00:00:00* Test Item Value Reference Range Interpretation Comme nts CHOLESTEROL, TOTAL (test cod e = 2093-3) 237 mg/dL HDL CHOLESTEROL (test code = 2085-9) 40 mg/dL TRIGLYCERIDES (test code = 2571-8) 268 mg/dL LDL-CHOLESTEROL (test code = 82940-5) 153 mg/dL(calc) CHOL/HDLC RATIO (test code = 9830-1) 5.9 (calc) NON HDL CHOLESTEROL (test code = 28591-5) 197 mg/dL(calc) [id number] 00:00:00* Test Item Value Reference Range Interpretation Comme nts TSH (test code = 3016-3) 1.20 mIU/L COMPREHENSIVE METABOLIC [id number] 00:00:00* Test Item Value Reference Range Interpretation Comme nts GLUCOSE (test code = 2217) 89 MG/DL BUN (test code = 2208) 19 MG/DL CREATININE (test code = 2214) 1.00 MG/DL eGFR AMER. (test cod e = 60020) 76 ML/MIN/1.73 eGFR NON- AMER. (test code = 53510) 65 ML/MIN/1.73 CALC BUN/CREAT (test code = 2235) 19 RATIO SODIUM (test code = 2231) 140 MEQ/L POTASSIUM (test code = 2228) 5.4 MEQ/L CHLORIDE (test code = 2215) 98 MEQ/L CARBON DIOXIDE (test code = 2206) 26 MEQ/L CALCIUM (test code = 2209) 9.6 MG/DL PROTEIN, TOTAL (test code = 2229) 7.3 G/DL ALBUMIN (test code = 2201) 4.4 G/DL CALC GLOBULIN (test code = 2240) 2.9 G/DL CALC A/G RATIO (test code = 2234) 1.5 RATIO BILIRUBIN, TOTAL (test code = 2207) 0.2 MG/DL ALKALINE PHOSPHATASE (test code = 2204) 107 U/L AST (test code = 2218) 16 U/L ALT (test code = 2219) 17 U/L THYROID II PROFILE (T3U, T4, T7, TSH)2017-07-16 00:00:00* Test Item Value Reference Range Interpretation Comme nts T3 UPTAKE (test code = 2817) 30.9 % T4 (THYROXINE) (test code = 2819) 9.5 UG/DL CALCULATED T7 (FTI) (test co de = 2820) 2.94 TSH (test code = 2821) 1.720 UIU/ML THYROID II PROFILE (T3U, T4, T7, TSH)2017-07-16 00:00:00* Test Item Value Reference Range Interpretation Comme nts T3 UPTAKE (test code = 2817) 30.9 % T4 (THYROXINE) (test code = 2819) 9.5 UG/DL CALCULATED T7 (FTI) (test co de = 2820) 2.94 TSH (test code = 2821) 1.720 UIU/ML HEMOGLOBIN [id number] 00:00:00* Test Item Value Reference Range Interpretation Comme nts HEMOGLOBIN A1c (test code = 20864) 5.6 % HEMOGLOBIN [id number] 00:00:00* Test Item Value Reference Range Interpretation Comme nts HEMOGLOBIN A1c (test code = 47691) 5.6 % HEMOGLOBIN [id number] 00:00:00* Test Item Value Reference Range Interpretation Comme nts HEMOGLOBIN A1c (test code = 74366) 5.6 % LIPID [id number] 00:00:00* Test Item Value Reference Range Interpretation Comme nts CHOLESTEROL (test code = 2210) 189 MG/DL TRIGLYCERIDES (test code = 2232) 433 MG/DL HDL CHOLESTEROL (test code = 2220) 29 MG/DL CALC LDL CHOL (test code = 2237) NOTE MG/DL RISK RATIO LDL/HDL (test cod e = 2238) (NOTE) RATIO LIPID [id number] 00:00:00* Test Item Value Reference Range Interpretation Comme nts CHOLESTEROL (test code = 2210) 189 MG/DL TRIGLYCERIDES (test code = 2232) 433 MG/DL HDL CHOLESTEROL (test code = 2220) 29 MG/DL CALC LDL CHOL (test code = 2237) NOTE MG/DL RISK RATIO LDL/HDL (test cod e = 2238) (NOTE) RATIO COMPREHENSIVE METABOLIC [id number] 00:00:00* Test Item Value Reference Range Interpretation Comme nts GLUCOSE (test code = 2217) 89 MG/DL BUN (test code = 2208) 19 MG/DL CREATININE (test code = 2214) 1.00 MG/DL eGFR AMER. (test cod e = 19010) 76 ML/MIN/1.73 eGFR NON- AMER. (test code = 91622) 65 ML/MIN/1.73 CALC BUN/CREAT (test code = 2235) 19 RATIO SODIUM (test code = 2231) 140 MEQ/L POTASSIUM (test code = 2228) 5.4 MEQ/L CHLORIDE (test code = 2215) 98 MEQ/L CARBON DIOXIDE (test code = 2206) 26 MEQ/L CALCIUM (test code = 2209) 9.6 MG/DL PROTEIN, TOTAL (test code = 2229) 7.3 G/DL ALBUMIN (test code = 2201) 4.4 G/DL CALC GLOBULIN (test code = 2240) 2.9 G/DL CALC A/G RATIO (test code = 2234) 1.5 RATIO BILIRUBIN, TOTAL (test code = 2207) 0.2 MG/DL ALKALINE PHOSPHATASE (test code = 2204) 107 U/L AST (test code = 2218) 16 U/L ALT (test code = 2219) 17 U/L THYROID II PROFILE (T3U, T4, T7, TSH)2017-07-16 00:00:00* Test Item Value Reference Range Interpretation Comme nts T3 UPTAKE (test code = 2817) 30.9 % T4 (THYROXINE) (test code = 2819) 9.5 UG/DL CALCULATED T7 (FTI) (test co de = 2820) 2.94 TSH (test code = 2821) 1.720 UIU/ML HEMOGLOBIN [id number] 00:00:00* Test Item Value Reference Range Interpretation Comme nts HEMOGLOBIN A1c (test code = 41353) 5.6 % HEMOGLOBIN [id number] 00:00:00* Test Item Value Reference Range Interpretation Comme nts HEMOGLOBIN A1c (test code = 36625) 5.6 % LIPID [id number] 00:00:00* Test Item Value Reference Range Interpretation Comme nts CHOLESTEROL (test code = 2210) 189 MG/DL TRIGLYCERIDES (test code = 2232) 433 MG/DL HDL CHOLESTEROL (test code = 2220) 29 MG/DL CALC LDL CHOL (test code = 2237) NOTE MG/DL RISK RATIO LDL/HDL (test cod e = 2238) (NOTE) RATIO COMPREHENSIVE METABOLIC [id number] 00:00:00* Test Item Value Reference Range Interpretation Comme nts GLUCOSE (test code = 2217) 89 MG/DL BUN (test code = 2208) 19 MG/DL CREATININE (test code = 2214) 1.00 MG/DL eGFR AMER. (test cod e = 78673) 76 ML/MIN/1.73 eGFR NON- AMER. (test code = 68214) 65 ML/MIN/1.73 CALC BUN/CREAT (test code = 2235) 19 RATIO SODIUM (test code = 2231) 140 MEQ/L POTASSIUM (test code = 2228) 5.4 MEQ/L CHLORIDE (test code = 2215) 98 MEQ/L CARBON DIOXIDE (test code = 2206) 26 MEQ/L CALCIUM (test code = 2209) 9.6 MG/DL PROTEIN, TOTAL (test code = 2229) 7.3 G/DL ALBUMIN (test code = 2201) 4.4 G/DL CALC GLOBULIN (test code = 2240) 2.9 G/DL CALC A/G RATIO (test code = 2234) 1.5 RATIO BILIRUBIN, TOTAL (test code = 2207) 0.2 MG/DL ALKALINE PHOSPHATASE (test code = 2204) 107 U/L AST (test code = 2218) 16 U/L ALT (test code = 2219) 17 U/L COMPREHENSIVE METABOLIC [id number] 00:00:00* Test Item Value Reference Range Interpretation Comme nts GLUCOSE (test code = 2217) 89 MG/DL BUN (test code = 2208) 19 MG/DL CREATININE (test code = 2214) 1.00 MG/DL eGFR AMER. (test cod e = ) 76 ML/MIN/1.73 eGFR NON- AMER. (test code = 63630) 65 ML/MIN/1.73 CALC BUN/CREAT (test code = 2235) 19 RATIO SODIUM (test code = 2231) 140 MEQ/L POTASSIUM (test code = 2228) 5.4 MEQ/L CHLORIDE (test code = 2215) 98 MEQ/L CARBON DIOXIDE (test code = 2206) 26 MEQ/L CALCIUM (test code = 2209) 9.6 MG/DL PROTEIN, TOTAL (test code = 2229) 7.3 G/DL ALBUMIN (test code = 2201) 4.4 G/DL CALC GLOBULIN (test code = 2240) 2.9 G/DL CALC A/G RATIO (test code = 2234) 1.5 RATIO BILIRUBIN, TOTAL (test code = 2207) 0.2 MG/DL ALKALINE PHOSPHATASE (test code = 2204) 107 U/L AST (test code = 2218) 16 U/L ALT (test code = 2219) 17 U/L THYROID II PROFILE (T3U, T4, T7, TSH)2017-07-16 00:00:00* Test Item Value Reference Range Interpretation Comme nts T3 UPTAKE (test code = 2817) 30.9 % T4 (THYROXINE) (test code = 2819) 9.5 UG/DL CALCULATED T7 (FTI) (test co de = 2820) 2.94 TSH (test code = 2821) 1.720 UIU/ML THYROID II PROFILE (T3U, T4, T7, TSH)2017-07-16 00:00:00* Test Item Value Reference Range Interpretation Comme nts T3 UPTAKE (test code = 2817) 30.9 % T4 (THYROXINE) (test code = 2819) 9.5 UG/DL CALCULATED T7 (FTI) (test co de = 2820) 2.94 TSH (test code = 2821) 1.720 UIU/ML HEMOGLOBIN [id number] 00:00:00* Test Item Value Reference Range Interpretation Comme nts HEMOGLOBIN A1c (test code = 10609) 5.6 % HEMOGLOBIN [id number] 00:00:00* Test Item Value Reference Range Interpretation Comme nts HEMOGLOBIN A1c (test code = 91454) 5.6 % HEMOGLOBIN [id number] 00:00:00* Test Item Value Reference Range Interpretation Comme nts HEMOGLOBIN A1c (test code = 05085) 5.6 % LIPID [id number] 00:00:00* Test Item Value Reference Range Interpretation Comme nts CHOLESTEROL (test code = 2210) 189 MG/DL TRIGLYCERIDES (test code = 2232) 433 MG/DL HDL CHOLESTEROL (test code = 2220) 29 MG/DL CALC LDL CHOL (test code = 2237) NOTE MG/DL RISK RATIO LDL/HDL (test cod e = 2238) (NOTE) RATIO LIPID [id number] 00:00:00* Test Item Value Reference Range Interpretation Comme nts CHOLESTEROL (test code = 2210) 189 MG/DL TRIGLYCERIDES (test code = 2232) 433 MG/DL HDL CHOLESTEROL (test code = 2220) 29 MG/DL CALC LDL CHOL (test code = 2237) NOTE MG/DL RISK RATIO LDL/HDL (test cod e = 2238) (NOTE) RATIO COMPREHENSIVE METABOLIC [id number] 00:00:00* Test Item Value Reference Range Interpretation Comme nts GLUCOSE (test code = 2217) 89 MG/DL BUN (test code = 2208) 19 MG/DL CREATININE (test code = 2214) 1.00 MG/DL eGFR AMER. (test cod e = 54170) 76 ML/MIN/1.73 eGFR NON- AMER. (test code = 08497) 65 ML/MIN/1.73 CALC BUN/CREAT (test code = 2235) 19 RATIO SODIUM (test code = 2231) 140 MEQ/L POTASSIUM (test code = 2228) 5.4 MEQ/L CHLORIDE (test code = 2215) 98 MEQ/L CARBON DIOXIDE (test code = 2206) 26 MEQ/L CALCIUM (test code = 2209) 9.6 MG/DL PROTEIN, TOTAL (test code = 2229) 7.3 G/DL ALBUMIN (test code = 2201) 4.4 G/DL CALC GLOBULIN (test code = 2240) 2.9 G/DL CALC A/G RATIO (test code = 2234) 1.5 RATIO BILIRUBIN, TOTAL (test code = 2207) 0.2 MG/DL ALKALINE PHOSPHATASE (test code = 2204) 107 U/L AST (test code = 2218) 16 U/L ALT (test code = 2219) 17 U/L COMPREHENSIVE METABOLIC [id number] 00:00:00* Test Item Value Reference Range Interpretation Comme nts GLUCOSE (test code = 2217) 89 MG/DL BUN (test code = 2208) 19 MG/DL CREATININE (test code = 2214) 1.00 MG/DL eGFR AMER. (test cod e = 98414) 76 ML/MIN/1.73 eGFR NON- AMER. (test code = 26367) 65 ML/MIN/1.73 CALC BUN/CREAT (test code = 2235) 19 RATIO SODIUM (test code = 2231) 140 MEQ/L POTASSIUM (test code = 2228) 5.4 MEQ/L CHLORIDE (test code = 2215) 98 MEQ/L CARBON DIOXIDE (test code = 2206) 26 MEQ/L CALCIUM (test code = 2209) 9.6 MG/DL PROTEIN, TOTAL (test code = 2229) 7.3 G/DL ALBUMIN (test code = 2201) 4.4 G/DL CALC GLOBULIN (test code = 2240) 2.9 G/DL CALC A/G RATIO (test code = 2234) 1.5 RATIO BILIRUBIN, TOTAL (test code = 2207) 0.2 MG/DL ALKALINE PHOSPHATASE (test code = 2204) 107 U/L AST (test code = 2218) 16 U/L ALT (test code = 2219) 17 U/L THYROID II PROFILE (T3U, T4, T7, TSH)[id number] 00:00:00* Test Item Value Reference Range Interpretation Comme nts T3 UPTAKE (test code = 2817) 30.9 % T4 (THYROXINE) (test code = 2819) 9.5 UG/DL CALCULATED T7 (FTI) (test co de = 2820) 2.94 TSH (test code = 2821) 1.720 UIU/ML THYROID II PROFILE (T3U, T4, T7, TSH)[id number] 00:00:00* Test Item Value Reference Range Interpretation Comme nts T3 UPTAKE (test code = 2817) 30.9 % T4 (THYROXINE) (test code = 2819) 9.5 UG/DL CALCULATED T7 (FTI) (test co de = 2820) 2.94 TSH (test code = 2821) 1.720 UIU/ML HEMOGLOBIN [id number] 00:00:00* Test Item Value Reference Range Interpretation Comme nts HEMOGLOBIN A1c (test code = 85436) 5.6 % HEMOGLOBIN [id number] 00:00:00* Test Item Value Reference Range Interpretation Comme nts HEMOGLOBIN A1c (test code = 85141) 5.6 % HEMOGLOBIN [id number] 00:00:00* Test Item Value Reference Range Interpretation Comme nts HEMOGLOBIN A1c (test code = 09459) 5.6 % LIPID [id number] 00:00:00* Test Item Value Reference Range Interpretation Comme nts CHOLESTEROL (test code = 2210) 189 MG/DL TRIGLYCERIDES (test code = 2232) 433 MG/DL HDL CHOLESTEROL (test code = 2220) 29 MG/DL CALC LDL CHOL (test code = 2237) NOTE MG/DL RISK RATIO LDL/HDL (test cod e = 2238) (NOTE) RATIO LIPID [id number] 00:00:00* Test Item Value Reference Range Interpretation Comme nts CHOLESTEROL (test code = 2210) 189 MG/DL TRIGLYCERIDES (test code = 2232) 433 MG/DL HDL CHOLESTEROL (test code = 2220) 29 MG/DL CALC LDL CHOL (test code = 2237) NOTE MG/DL RISK RATIO LDL/HDL (test cod e = 2238) (NOTE) RATIO COMPREHENSIVE METABOLIC [id number] 00:00:00* Test Item Value Reference Range Interpretation Comme nts GLUCOSE (test code = 2217) 89 MG/DL BUN (test code = 2208) 19 MG/DL CREATININE (test code = 2214) 1.00 MG/DL eGFR AMER. (test cod e = 52352) 76 ML/MIN/1.73 eGFR NON- AMER. (test code = 69913) 65 ML/MIN/1.73 CALC BUN/CREAT (test code = 2235) 19 RATIO SODIUM (test code = 2231) 140 MEQ/L POTASSIUM (test code = 2228) 5.4 MEQ/L CHLORIDE (test code = 2215) 98 MEQ/L CARBON DIOXIDE (test code = 2206) 26 MEQ/L CALCIUM (test code = 2209) 9.6 MG/DL PROTEIN, TOTAL (test code = 2229) 7.3 G/DL ALBUMIN (test code = 2201) 4.4 G/DL CALC GLOBULIN (test code = 2240) 2.9 G/DL CALC A/G RATIO (test code = 2234) 1.5 RATIO BILIRUBIN, TOTAL (test code = 2207) 0.2 MG/DL ALKALINE PHOSPHATASE (test code = 2204) 107 U/L AST (test code = 2218) 16 U/L ALT (test code = 2219) 17 U/L CBC W/AUTO [id number] 00:00:00* Test Item Value Reference Range Interpretation Comme nts WBC (test code = 1001) 7.8 K/UL RBC (test code = 1002) 4.71 M/UL HEMOGLOBIN (test code = 1003) 13.5 G/DL HEMATOCRIT (test code = 1004) 40.6 % MCV (test code = 1005) 86.2 fL MCH (test code = 1006) 28.7 PG MCHC (test code = 1007) 33.3 G/DL RDW (test code = 1038) 13.6 % NEUTROPHILS (test code = 1008) 62 % LYMPHOCYTES (test code = 1010) 28 % MONOCYTES (test code = 1011) 8 % EOSINOPHILS (test code = 1012) 1 % BASOPHILS (test code = 1013) % PLATELET COUNT (test code = 1015) 316 K/UL CBC W/AUTO [id number] 00:00:00* Test Item Value Reference Range Interpretation Comme nts WBC (test code = 1001) 7.8 K/UL RBC (test code = 1002) 4.71 M/UL HEMOGLOBIN (test code = 1003) 13.5 G/DL HEMATOCRIT (test code = 1004) 40.6 % MCV (test code = 1005) 86.2 fL MCH (test code = 1006) 28.7 PG MCHC (test code = 1007) 33.3 G/DL RDW (test code = 1038) 13.6 % NEUTROPHILS (test code = 1008) 62 % LYMPHOCYTES (test code = 1010) 28 % MONOCYTES (test code = 1011) 8 % EOSINOPHILS (test code = 1012) 1 % BASOPHILS (test code = 1013) % PLATELET COUNT (test code = 1015) 316 K/UL LIPASE [ADDED]2016-04-25 00:00:00* Test Item Value Reference Range Interpretation Comme nts LIPASE (test code = 8) 50 U/L LIPASE [ADDED]2016-04-25 00:00:00* Test Item Value Reference Range Interpretation Comme nts LIPASE (test code = 2057) 50 U/L LIPASE [ADDED]2016-04-25 00:00:00* Test Item Value Reference Range Interpretation Comme nts LIPASE (test code = 2057) 50 U/L AMYLASE [ADDED]2016-04-25 00:00:00* Test Item Value Reference Range Interpretation Comme nts AMYLASE (test code = 2205) 49 U/L AMYLASE [ADDED]2016-04-25 00:00:00* Test Item Value Reference Range Interpretation Comme nts AMYLASE (test code = 2205) 49 U/L CBC W/AUTO [id number] 00:00:00* Test Item Value Reference Range Interpretation Comme nts WBC (test code = 1001) 7.8 K/UL RBC (test code = 1002) 4.71 M/UL HEMOGLOBIN (test code = 1003) 13.5 G/DL HEMATOCRIT (test code = 1004) 40.6 % MCV (test code = 1005) 86.2 fL MCH (test code = 1006) 28.7 PG MCHC (test code = 1007) 33.3 G/DL RDW (test code = 1038) 13.6 % NEUTROPHILS (test code = 1008) 62 % LYMPHOCYTES (test code = 1010) 28 % MONOCYTES (test code = 1011) 8 % EOSINOPHILS (test code = 1012) 1 % BASOPHILS (test code = 1013) % PLATELET COUNT (test code = 1015) 316 K/UL CBC W/AUTO [id number] 00:00:00* Test Item Value Reference Range Interpretation Comme nts WBC (test code = 1001) 7.8 K/UL RBC (test code = 1002) 4.71 M/UL HEMOGLOBIN (test code = 1003) 13.5 G/DL HEMATOCRIT (test code = 1004) 40.6 % MCV (test code = 1005) 86.2 fL MCH (test code = 1006) 28.7 PG MCHC (test code = 1007) 33.3 G/DL RDW (test code = 1038) 13.6 % NEUTROPHILS (test code = 1008) 62 % LYMPHOCYTES (test code = 1010) 28 % MONOCYTES (test code = 1011) 8 % EOSINOPHILS (test code = 1012) 1 % BASOPHILS (test code = 1013) % PLATELET COUNT (test code = 1015) 316 K/UL LIPASE [ADDED]2016-04-25 00:00:00* Test Item Value Reference Range Interpretation Comme nts LIPASE (test code = 8) 50 U/L LIPASE [ADDED]2016-04-25 00:00:00* Test Item Value Reference Range Interpretation Comme nts LIPASE (test code = 2057) 50 U/L AMYLASE [ADDED]2016-04-25 00:00:00* Test Item Value Reference Range Interpretation Comme nts AMYLASE (test code = 2205) 49 U/L CBC W/AUTO [id number] 00:00:00* Test Item Value Reference Range Interpretation Comme nts WBC (test code = 1001) 7.8 K/UL RBC (test code = 1002) 4.71 M/UL HEMOGLOBIN (test code = 1003) 13.5 G/DL HEMATOCRIT (test code = 1004) 40.6 % MCV (test code = 1005) 86.2 fL MCH (test code = 1006) 28.7 PG MCHC (test code = 1007) 33.3 G/DL RDW (test code = 1038) 13.6 % NEUTROPHILS (test code = 1008) 62 % LYMPHOCYTES (test code = 1010) 28 % MONOCYTES (test code = 1011) 8 % EOSINOPHILS (test code = 1012) 1 % BASOPHILS (test code = 1013) % PLATELET COUNT (test code = 1015) 316 K/UL CBC W/AUTO [id number] 00:00:00* Test Item Value Reference Range Interpretation Comme nts WBC (test code = 1001) 7.8 K/UL RBC (test code = 1002) 4.71 M/UL HEMOGLOBIN (test code = 1003) 13.5 G/DL HEMATOCRIT (test code = 1004) 40.6 % MCV (test code = 1005) 86.2 fL MCH (test code = 1006) 28.7 PG MCHC (test code = 1007) 33.3 G/DL RDW (test code = 1038) 13.6 % NEUTROPHILS (test code = 1008) 62 % LYMPHOCYTES (test code = 1010) 28 % MONOCYTES (test code = 1011) 8 % EOSINOPHILS (test code = 1012) 1 % BASOPHILS (test code = 1013) % PLATELET COUNT (test code = 1015) 316 K/UL CBC W/AUTO [id number] 00:00:00* Test Item Value Reference Range Interpretation Comme nts WBC (test code = 1001) 7.8 K/UL RBC (test code = 1002) 4.71 M/UL HEMOGLOBIN (test code = 1003) 13.5 G/DL HEMATOCRIT (test code = 1004) 40.6 % MCV (test code = 1005) 86.2 fL MCH (test code = 1006) 28.7 PG MCHC (test code = 1007) 33.3 G/DL RDW (test code = 1038) 13.6 % NEUTROPHILS (test code = 1008) 62 % LYMPHOCYTES (test code = 1010) 28 % MONOCYTES (test code = 1011) 8 % EOSINOPHILS (test code = 1012) 1 % BASOPHILS (test code = 1013) % PLATELET COUNT (test code = 1015) 316 K/UL LIPASE [ADDED]2016-04-25 00:00:00* Test Item Value Reference Range Interpretation Comme nts LIPASE (test code = 8) 50 U/L LIPASE [ADDED]2016-04-25 00:00:00* Test Item Value Reference Range Interpretation Comme nts LIPASE (test code = 8) 50 U/L LIPASE [ADDED]2016-04-25 00:00:00* Test Item Value Reference Range Interpretation Comme nts LIPASE (test code = 8) 50 U/L AMYLASE [ADDED]2016-04-25 00:00:00* Test Item Value Reference Range Interpretation Comme nts AMYLASE (test code = 2205) 49 U/L AMYLASE [ADDED]2016-04-25 00:00:00* Test Item Value Reference Range Interpretation Comme nts AMYLASE (test code = 2205) 49 U/L CBC W/AUTO [id number] 00:00:00* Test Item Value Reference Range Interpretation Comme nts WBC (test code = 1001) 7.8 K/UL RBC (test code = 1002) 4.71 M/UL HEMOGLOBIN (test code = 1003) 13.5 G/DL HEMATOCRIT (test code = 1004) 40.6 % MCV (test code = 1005) 86.2 fL MCH (test code = 1006) 28.7 PG MCHC (test code = 1007) 33.3 G/DL RDW (test code = 1038) 13.6 % NEUTROPHILS (test code = 1008) 62 % LYMPHOCYTES (test code = 1010) 28 % MONOCYTES (test code = 1011) 8 % EOSINOPHILS (test code = 1012) 1 % BASOPHILS (test code = 1013) % PLATELET COUNT (test code = 1015) 316 K/UL CBC W/AUTO [id number] 00:00:00* Test Item Value Reference Range Interpretation Comme nts WBC (test code = 1001) 7.8 K/UL RBC (test code = 1002) 4.71 M/UL HEMOGLOBIN (test code = 1003) 13.5 G/DL HEMATOCRIT (test code = 1004) 40.6 % MCV (test code = 1005) 86.2 fL MCH (test code = 1006) 28.7 PG MCHC (test code = 1007) 33.3 G/DL RDW (test code = 1038) 13.6 % NEUTROPHILS (test code = 1008) 62 % LYMPHOCYTES (test code = 1010) 28 % MONOCYTES (test code = 1011) 8 % EOSINOPHILS (test code = 1012) 1 % BASOPHILS (test code = 1013) % PLATELET COUNT (test code = 1015) 316 K/UL CBC W/AUTO [id number] 00:00:00* Test Item Value Reference Range Interpretation Comme nts WBC (test code = 1001) 7.8 K/UL RBC (test code = 1002) 4.71 M/UL HEMOGLOBIN (test code = 1003) 13.5 G/DL HEMATOCRIT (test code = 1004) 40.6 % MCV (test code = 1005) 86.2 fL MCH (test code = 1006) 28.7 PG MCHC (test code = 1007) 33.3 G/DL RDW (test code = 1038) 13.6 % NEUTROPHILS (test code = 1008) 62 % LYMPHOCYTES (test code = 1010) 28 % MONOCYTES (test code = 1011) 8 % EOSINOPHILS (test code = 1012) 1 % BASOPHILS (test code = 1013) % PLATELET COUNT (test code = 1015) 316 K/UL LIPASE [ADDED]2016-04-25 00:00:00* Test Item Value Reference Range Interpretation Comme nts LIPASE (test code = 2057) 50 U/L LIPASE [ADDED]2016-04-25 00:00:00* Test Item Value Reference Range Interpretation Comme nts LIPASE (test code = 2057) 50 U/L LIPASE [ADDED]2016-04-25 00:00:00* Test Item Value Reference Range Interpretation Comme nts LIPASE (test code = 2057) 50 U/L AMYLASE [ADDED]2016-04-25 00:00:00* Test Item Value Reference Range Interpretation Comme nts AMYLASE (test code = 5) 49 U/L AMYLASE [ADDED]2016-04-25 00:00:00* Test Item Value Reference Range Interpretation Comme nts AMYLASE (test code = 2205) 49 U/L CBC W/AUTO [id number] 00:00:00* Test Item Value Reference Range Interpretation Comme nts WBC (test code = 1001) 7.8 K/UL RBC (test code = 1002) 4.71 M/UL HEMOGLOBIN (test code = 1003) 13.5 G/DL HEMATOCRIT (test code = 1004) 40.6 % MCV (test code = 1005) 86.2 fL MCH (test code = 1006) 28.7 PG MCHC (test code = 1007) 33.3 G/DL RDW (test code = 1038) 13.6 % NEUTROPHILS (test code = 1008) 62 % LYMPHOCYTES (test code = 1010) 28 % MONOCYTES (test code = 1011) 8 % EOSINOPHILS (test code = 1012) 1 % BASOPHILS (test code = 1013) % PLATELET COUNT (test code = 1015) 316 K/UL VITAMIN D, 25 [id number] 00:00:00* Test Item Value Reference Range Interpretation Comme nts VITAMIN D, 25 OH (test code = 4958) 12 NG/ML VITAMIN [id number] 00:00:00* Test Item Value Reference Range Interpretation Comme nts VITAMIN B-12 (test code = 2840) 370 PG/ML VITAMIN [id number] 00:00:00* Test Item Value Reference Range Interpretation Comme nts VITAMIN B-12 (test code = 2840) 370 PG/ML VITAMIN [id number] 00:00:00* Test Item Value Reference Range Interpretation Comme nts VITAMIN B-12 (test code = 2840) 370 PG/ML VITAMIN D, 25 [id number] 00:00:00* Test Item Value Reference Range Interpretation Comme nts VITAMIN D, 25 OH (test code = 4958) 12 NG/ML VITAMIN [id number] 00:00:00* Test Item Value Reference Range Interpretation Comme nts VITAMIN B-12 (test code = 2840) 370 PG/ML VITAMIN [id number] 00:00:00* Test Item Value Reference Range Interpretation Comme nts VITAMIN B-12 (test code = 2840) 370 PG/ML VITAMIN D, 25 [id number] 00:00:00* Test Item Value Reference Range Interpretation Comme nts VITAMIN D, 25 OH (test code = 4958) 12 NG/ML VITAMIN D, 25 [id number] 00:00:00* Test Item Value Reference Range Interpretation Comme nts VITAMIN D, 25 OH (test code = 4958) 12 NG/ML VITAMIN [id number] 00:00:00* Test Item Value Reference Range Interpretation Comme nts VITAMIN B-12 (test code = 2840) 370 PG/ML VITAMIN [id number] 00:00:00* Test Item Value Reference Range Interpretation Comme nts VITAMIN B-12 (test code = 2840) 370 PG/ML VITAMIN [id number] 00:00:00* Test Item Value Reference Range Interpretation Comme nts VITAMIN B-12 (test code = 2840) 370 PG/ML VITAMIN D, 25 [id number] 00:00:00* Test Item Value Reference Range Interpretation Comme nts VITAMIN D, 25 OH (test code = 4958) 12 NG/ML VITAMIN D, 25 [id number] 00:00:00* Test Item Value Reference Range Interpretation Comme nts VITAMIN D, 25 OH (test code = 4958) 12 NG/ML VITAMIN [id number] 00:00:00* Test Item Value Reference Range Interpretation Comme nts VITAMIN B-12 (test code = 2840) 370 PG/ML VITAMIN [id number] 00:00:00* Test Item Value Reference Range Interpretation Comme nts VITAMIN B-12 (test code = 2840) 370 PG/ML VITAMIN [id number] 00:00:00* Test Item Value Reference Range Interpretation Comme nts VITAMIN B-12 (test code = 2840) 370 PG/ML VITAMIN D, 25 [id number] 00:00:00* Test Item Value Reference Range Interpretation Comme nts VITAMIN D, 25 OH (test code = 4958) 12 NG/ML COMPREHENSIVE METABOLIC [id number] 00:00:00* Test Item Value Reference Range Interpretation Comme nts GLUCOSE (test code = 2217) 90 MG/DL BUN (test code = 2208) 9 MG/DL CREATININE (test code = 2214) 0.67 MG/DL eGFR AMER. (test cod e = 48612) 119 ML/MIN/1.73 eGFR NON- AMER. (test code = 45894) 102 ML/MIN/1.73 CALCULATED BUN/CREAT (test code = 2235) 13 RATIO SODIUM (test code = 2231) 136 MEQ/L POTASSIUM (test code = 2228) 4.9 MEQ/L CHLORIDE (test code = 2215) 100 MEQ/L CARBON DIOXIDE (test code = 2206) 22 MEQ/L CALCIUM (test code = 2209) 9.1 MG/DL PROTEIN, TOTAL (test code = 2229) 7.4 G/DL ALBUMIN (test code = 2201) 4.0 G/DL CALCULATED GLOBULIN (test code = 2240) 3.4 G/DL CALCULATED A/G RATIO (test code = 2234) 1.2 RATIO BILIRUBIN, TOTAL (test code = 2207) 0.4 MG/DL ALKALINE PHOSPHATASE (test code = 2204) 97 U/L SGOT (AST) (test code = 2218) 35 U/L SGPT (ALT) (test code = 2219) 41 U/L LIPID [id number] 00:00:00* Test Item Value Reference Range Interpretation Comme nts CHOLESTEROL (test code = 2210) 204 MG/DL TRIGLYCERIDES (test code = 2232) 286 MG/DL HDL CHOLESTEROL (test code = 2220) 35 MG/DL CALCULATED LDL CHOL (test co de = 2236) 112 MG/DL RISK RATIO LDL/HDL (test cod e = 2238) 3.19 RATIO LIPID [id number] 00:00:00* Test Item Value Reference Range Interpretation Comme nts CHOLESTEROL (test code = 2210) 204 MG/DL TRIGLYCERIDES (test code = 2232) 286 MG/DL HDL CHOLESTEROL (test code = 2220) 35 MG/DL CALCULATED LDL CHOL (test co de = 2237) 112 MG/DL RISK RATIO LDL/HDL (test cod e = 2238) 3.19 RATIO CBC W/AUTO [id number] 00:00:00* Test Item Value Reference Range Interpretation Comme nts WBC (test code = 1001) 7.3 K/UL RBC (test code = 1002) 4.98 M/UL HEMOGLOBIN (test code = 1003) 14.1 G/DL HEMATOCRIT (test code = 1004) 43.5 % MCV (test code = 1005) 87.3 fL MCH (test code = 1006) 28.3 PG MCHC (test code = 1007) 32.4 G/DL RDW (test code = 1038) 13.6 % NEUTROPHILS (test code = 1008) 66 % LYMPHOCYTES (test code = 1010) 24 % MONOCYTES (test code = 1011) 7 % EOSINOPHILS (test code = 1012) 2 % BASOPHILS (test code = 1013) % PLATELET COUNT (test code = 1015) 294 K/UL CBC W/AUTO [id number] 00:00:00* Test Item Value Reference Range Interpretation Comme nts WBC (test code = 1001) 7.3 K/UL RBC (test code = 1002) 4.98 M/UL HEMOGLOBIN (test code = 1003) 14.1 G/DL HEMATOCRIT (test code = 1004) 43.5 % MCV (test code = 1005) 87.3 fL MCH (test code = 1006) 28.3 PG MCHC (test code = 1007) 32.4 G/DL RDW (test code = 1038) 13.6 % NEUTROPHILS (test code = 1008) 66 % LYMPHOCYTES (test code = 1010) 24 % MONOCYTES (test code = 1011) 7 % EOSINOPHILS (test code = 1012) 2 % BASOPHILS (test code = 1013) % PLATELET COUNT (test code = 1015) 294 K/UL CBC W/AUTO [id number] 00:00:00* Test Item Value Reference Range Interpretation Comme nts WBC (test code = 1001) 7.3 K/UL RBC (test code = 1002) 4.98 M/UL HEMOGLOBIN (test code = 1003) 14.1 G/DL HEMATOCRIT (test code = 1004) 43.5 % MCV (test code = 1005) 87.3 fL MCH (test code = 1006) 28.3 PG MCHC (test code = 1007) 32.4 G/DL RDW (test code = 1038) 13.6 % NEUTROPHILS (test code = 1008) 66 % LYMPHOCYTES (test code = 1010) 24 % MONOCYTES (test code = 1011) 7 % EOSINOPHILS (test code = 1012) 2 % BASOPHILS (test code = 1013) % PLATELET COUNT (test code = 1015) 294 K/UL HEMOGLOBIN [id number] 00:00:00* Test Item Value Reference Range Interpretation Comme nts HEMOGLOBIN A1c (test code = 07968) 5.9 % HEMOGLOBIN [id number] 00:00:00* Test Item Value Reference Range Interpretation Comme nts HEMOGLOBIN A1c (test code = 72355) 5.9 % HEMOGLOBIN [id number] 00:00:00* Test Item Value Reference Range Interpretation Comme nts HEMOGLOBIN A1c (test code = 51313) 5.9 % [id number] 00:00:00* Test Item Value Reference Range Interpretation Comme nts TSH (test code = 2821) 3.5 UIU/ML [id number] 00:00:00* Test Item Value Reference Range Interpretation Comme nts TSH (test code = 2821) 3.5 UIU/ML [id number] 00:00:00* Test Item Value Reference Range Interpretation Comme nts TSH (test code = 2821) 3.5 UIU/ML COMPREHENSIVE METABOLIC [id number] 00:00:00* Test Item Value Reference Range Interpretation Comme nts GLUCOSE (test code = 2217) 90 MG/DL BUN (test code = 2208) 9 MG/DL CREATININE (test code = 2214) 0.67 MG/DL eGFR AMER. (test cod e = 87679) 119 ML/MIN/1.73 eGFR NON- AMER. (test code = 51064) 102 ML/MIN/1.73 CALCULATED BUN/CREAT (test code = 2235) 13 RATIO SODIUM (test code = 2231) 136 MEQ/L POTASSIUM (test code = 2228) 4.9 MEQ/L CHLORIDE (test code = 2215) 100 MEQ/L CARBON DIOXIDE (test code = 2206) 22 MEQ/L CALCIUM (test code = 2209) 9.1 MG/DL PROTEIN, TOTAL (test code = 2229) 7.4 G/DL ALBUMIN (test code = 2201) 4.0 G/DL CALCULATED GLOBULIN (test code = 2240) 3.4 G/DL CALCULATED A/G RATIO (test code = 2234) 1.2 RATIO BILIRUBIN, TOTAL (test code = 2207) 0.4 MG/DL ALKALINE PHOSPHATASE (test code = 2204) 97 U/L SGOT (AST) (test code = 2218) 35 U/L SGPT (ALT) (test code = 2219) 41 U/L LIPID [id number] 00:00:00* Test Item Value Reference Range Interpretation Comme nts CHOLESTEROL (test code = 2210) 204 MG/DL TRIGLYCERIDES (test code = 2232) 286 MG/DL HDL CHOLESTEROL (test code = 2220) 35 MG/DL CALCULATED LDL CHOL (test co de = 223) 112 MG/DL RISK RATIO LDL/HDL (test cod e = 2238) 3.19 RATIO CBC W/AUTO [id number] 00:00:00* Test Item Value Reference Range Interpretation Comme nts WBC (test code = 1001) 7.3 K/UL RBC (test code = 1002) 4.98 M/UL HEMOGLOBIN (test code = 1003) 14.1 G/DL HEMATOCRIT (test code = 1004) 43.5 % MCV (test code = 1005) 87.3 fL MCH (test code = 1006) 28.3 PG MCHC (test code = 1007) 32.4 G/DL RDW (test code = 1038) 13.6 % NEUTROPHILS (test code = 1008) 66 % LYMPHOCYTES (test code = 1010) 24 % MONOCYTES (test code = 1011) 7 % EOSINOPHILS (test code = 1012) 2 % BASOPHILS (test code = 1013) % PLATELET COUNT (test code = 1015) 294 K/UL CBC W/AUTO [id number] 00:00:00* Test Item Value Reference Range Interpretation Comme nts WBC (test code = 1001) 7.3 K/UL RBC (test code = 1002) 4.98 M/UL HEMOGLOBIN (test code = 1003) 14.1 G/DL HEMATOCRIT (test code = 1004) 43.5 % MCV (test code = 1005) 87.3 fL MCH (test code = 1006) 28.3 PG MCHC (test code = 1007) 32.4 G/DL RDW (test code = 1038) 13.6 % NEUTROPHILS (test code = 1008) 66 % LYMPHOCYTES (test code = 1010) 24 % MONOCYTES (test code = 1011) 7 % EOSINOPHILS (test code = 1012) 2 % BASOPHILS (test code = 1013) % PLATELET COUNT (test code = 1015) 294 K/UL HEMOGLOBIN [id number] 00:00:00* Test Item Value Reference Range Interpretation Comme nts HEMOGLOBIN A1c (test code = 07703) 5.9 % HEMOGLOBIN [id number] 00:00:00* Test Item Value Reference Range Interpretation Comme nts HEMOGLOBIN A1c (test code = 10872) 5.9 % [id number] 00:00:00* Test Item Value Reference Range Interpretation Comme nts TSH (test code = 2821) 3.5 UIU/ML [id number] 00:00:00* Test Item Value Reference Range Interpretation Comme nts TSH (test code = 2821) 3.5 UIU/ML COMPREHENSIVE METABOLIC [id number] 00:00:00* Test Item Value Reference Range Interpretation Comme nts GLUCOSE (test code = 2217) 90 MG/DL BUN (test code = 2208) 9 MG/DL CREATININE (test code = 2214) 0.67 MG/DL eGFR AMER. (test cod e = 22358) 119 ML/MIN/1.73 eGFR NON- AMER. (test code = 43875) 102 ML/MIN/1.73 CALCULATED BUN/CREAT (test code = 2235) 13 RATIO SODIUM (test code = 2231) 136 MEQ/L POTASSIUM (test code = 2228) 4.9 MEQ/L CHLORIDE (test code = 2215) 100 MEQ/L CARBON DIOXIDE (test code = 2206) 22 MEQ/L CALCIUM (test code = 2209) 9.1 MG/DL PROTEIN, TOTAL (test code = 2229) 7.4 G/DL ALBUMIN (test code = 2201) 4.0 G/DL CALCULATED GLOBULIN (test code = 2240) 3.4 G/DL CALCULATED A/G RATIO (test code = 2234) 1.2 RATIO BILIRUBIN, TOTAL (test code = 2207) 0.4 MG/DL ALKALINE PHOSPHATASE (test code = 2204) 97 U/L SGOT (AST) (test code = 2218) 35 U/L SGPT (ALT) (test code = 2219) 41 U/L COMPREHENSIVE METABOLIC [id number] 00:00:00* Test Item Value Reference Range Interpretation Comme nts GLUCOSE (test code = 2217) 90 MG/DL BUN (test code = 2208) 9 MG/DL CREATININE (test code = 2214) 0.67 MG/DL eGFR AMER. (test cod e = 54520) 119 ML/MIN/1.73 eGFR NON- AMER. (test code = 68118) 102 ML/MIN/1.73 CALCULATED BUN/CREAT (test code = 2235) 13 RATIO SODIUM (test code = 2231) 136 MEQ/L POTASSIUM (test code = 2228) 4.9 MEQ/L CHLORIDE (test code = 2215) 100 MEQ/L CARBON DIOXIDE (test code = 2206) 22 MEQ/L CALCIUM (test code = 2209) 9.1 MG/DL PROTEIN, TOTAL (test code = 2229) 7.4 G/DL ALBUMIN (test code = 2201) 4.0 G/DL CALCULATED GLOBULIN (test code = 2240) 3.4 G/DL CALCULATED A/G RATIO (test code = 2234) 1.2 RATIO BILIRUBIN, TOTAL (test code = 2207) 0.4 MG/DL ALKALINE PHOSPHATASE (test code = 2204) 97 U/L SGOT (AST) (test code = 2218) 35 U/L SGPT (ALT) (test code = 2219) 41 U/L LIPID [id number] 00:00:00* Test Item Value Reference Range Interpretation Comme nts CHOLESTEROL (test code = 2210) 204 MG/DL TRIGLYCERIDES (test code = 2232) 286 MG/DL HDL CHOLESTEROL (test code = 2220) 35 MG/DL CALCULATED LDL CHOL (test co de = 2237) 112 MG/DL RISK RATIO LDL/HDL (test cod e = 2238) 3.19 RATIO LIPID [id number] 00:00:00* Test Item Value Reference Range Interpretation Comme nts CHOLESTEROL (test code = 2210) 204 MG/DL TRIGLYCERIDES (test code = 2232) 286 MG/DL HDL CHOLESTEROL (test code = 2220) 35 MG/DL CALCULATED LDL CHOL (test co de = 2237) 112 MG/DL RISK RATIO LDL/HDL (test cod e = 2238) 3.19 RATIO CBC W/AUTO [id number] 00:00:00* Test Item Value Reference Range Interpretation Comme nts WBC (test code = 1001) 7.3 K/UL RBC (test code = 1002) 4.98 M/UL HEMOGLOBIN (test code = 1003) 14.1 G/DL HEMATOCRIT (test code = 1004) 43.5 % MCV (test code = 1005) 87.3 fL MCH (test code = 1006) 28.3 PG MCHC (test code = 1007) 32.4 G/DL RDW (test code = 1038) 13.6 % NEUTROPHILS (test code = 1008) 66 % LYMPHOCYTES (test code = 1010) 24 % MONOCYTES (test code = 1011) 7 % EOSINOPHILS (test code = 1012) 2 % BASOPHILS (test code = 1013) % PLATELET COUNT (test code = 1015) 294 K/UL CBC W/AUTO [id number] 00:00:00* Test Item Value Reference Range Interpretation Comme nts WBC (test code = 1001) 7.3 K/UL RBC (test code = 1002) 4.98 M/UL HEMOGLOBIN (test code = 1003) 14.1 G/DL HEMATOCRIT (test code = 1004) 43.5 % MCV (test code = 1005) 87.3 fL MCH (test code = 1006) 28.3 PG MCHC (test code = 1007) 32.4 G/DL RDW (test code = 1038) 13.6 % NEUTROPHILS (test code = 1008) 66 % LYMPHOCYTES (test code = 1010) 24 % MONOCYTES (test code = 1011) 7 % EOSINOPHILS (test code = 1012) 2 % BASOPHILS (test code = 1013) % PLATELET COUNT (test code = 1015) 294 K/UL CBC W/AUTO [id number] 00:00:00* Test Item Value Reference Range Interpretation Comme nts WBC (test code = 1001) 7.3 K/UL RBC (test code = 1002) 4.98 M/UL HEMOGLOBIN (test code = 1003) 14.1 G/DL HEMATOCRIT (test code = 1004) 43.5 % MCV (test code = 1005) 87.3 fL MCH (test code = 1006) 28.3 PG MCHC (test code = 1007) 32.4 G/DL RDW (test code = 1038) 13.6 % NEUTROPHILS (test code = 1008) 66 % LYMPHOCYTES (test code = 1010) 24 % MONOCYTES (test code = 1011) 7 % EOSINOPHILS (test code = 1012) 2 % BASOPHILS (test code = 1013) % PLATELET COUNT (test code = 1015) 294 K/UL HEMOGLOBIN [id number] 00:00:00* Test Item Value Reference Range Interpretation Comme nts HEMOGLOBIN A1c (test code = 91971) 5.9 % HEMOGLOBIN [id number] 00:00:00* Test Item Value Reference Range Interpretation Comme nts HEMOGLOBIN A1c (test code = 89261) 5.9 % HEMOGLOBIN [id number] 00:00:00* Test Item Value Reference Range Interpretation Comme nts HEMOGLOBIN A1c (test code = 91337) 5.9 % [id number] 00:00:00* Test Item Value Reference Range Interpretation Comme nts TSH (test code = 2821) 3.5 UIU/ML [id number] 00:00:00* Test Item Value Reference Range Interpretation Comme nts TSH (test code = 2821) 3.5 UIU/ML [id number] 00:00:00* Test Item Value Reference Range Interpretation Comme nts TSH (test code = 2821) 3.5 UIU/ML COMPREHENSIVE METABOLIC [id number] 00:00:00* Test Item Value Reference Range Interpretation Comme nts GLUCOSE (test code = 2217) 90 MG/DL BUN (test code = 2208) 9 MG/DL CREATININE (test code = 2214) 0.67 MG/DL eGFR AMER. (test cod e = 27353) 119 ML/MIN/1.73 eGFR NON- AMER. (test code = 89709) 102 ML/MIN/1.73 CALCULATED BUN/CREAT (test code = 2235) 13 RATIO SODIUM (test code = 2231) 136 MEQ/L POTASSIUM (test code = 2228) 4.9 MEQ/L CHLORIDE (test code = 2215) 100 MEQ/L CARBON DIOXIDE (test code = 2206) 22 MEQ/L CALCIUM (test code = 2209) 9.1 MG/DL PROTEIN, TOTAL (test code = 2229) 7.4 G/DL ALBUMIN (test code = 2201) 4.0 G/DL CALCULATED GLOBULIN (test code = 2240) 3.4 G/DL CALCULATED A/G RATIO (test code = 2234) 1.2 RATIO BILIRUBIN, TOTAL (test code = 2207) 0.4 MG/DL ALKALINE PHOSPHATASE (test code = 2204) 97 U/L SGOT (AST) (test code = 2218) 35 U/L SGPT (ALT) (test code = 2219) 41 U/L COMPREHENSIVE METABOLIC [id number] 00:00:00* Test Item Value Reference Range Interpretation Comme nts GLUCOSE (test code = 2217) 90 MG/DL BUN (test code = 2208) 9 MG/DL CREATININE (test code = 2214) 0.67 MG/DL eGFR AMER. (test cod e = 96649) 119 ML/MIN/1.73 eGFR NON- AMER. (test code = 52785) 102 ML/MIN/1.73 CALCULATED BUN/CREAT (test code = 2235) 13 RATIO SODIUM (test code = 2231) 136 MEQ/L POTASSIUM (test code = 2228) 4.9 MEQ/L CHLORIDE (test code = 2215) 100 MEQ/L CARBON DIOXIDE (test code = 2206) 22 MEQ/L CALCIUM (test code = 2209) 9.1 MG/DL PROTEIN, TOTAL (test code = 2229) 7.4 G/DL ALBUMIN (test code = 2201) 4.0 G/DL CALCULATED GLOBULIN (test code = 2240) 3.4 G/DL CALCULATED A/G RATIO (test code = 2234) 1.2 RATIO BILIRUBIN, TOTAL (test code = 2207) 0.4 MG/DL ALKALINE PHOSPHATASE (test code = 2204) 97 U/L SGOT (AST) (test code = 2218) 35 U/L SGPT (ALT) (test code = 2219) 41 U/L LIPID [id number] 00:00:00* Test Item Value Reference Range Interpretation Comme nts CHOLESTEROL (test code = 2210) 204 MG/DL TRIGLYCERIDES (test code = 2232) 286 MG/DL HDL CHOLESTEROL (test code = 2220) 35 MG/DL CALCULATED LDL CHOL (test co de = 2237) 112 MG/DL RISK RATIO LDL/HDL (test cod e = 2238) 3.19 RATIO LIPID [id number] 00:00:00* Test Item Value Reference Range Interpretation Comme nts CHOLESTEROL (test code = 2210) 204 MG/DL TRIGLYCERIDES (test code = 2232) 286 MG/DL HDL CHOLESTEROL (test code = 2220) 35 MG/DL CALCULATED LDL CHOL (test co de = 2237) 112 MG/DL RISK RATIO LDL/HDL (test cod e = 2238) 3.19 RATIO CBC W/AUTO [id number] 00:00:00* Test Item Value Reference Range Interpretation Comme nts WBC (test code = 1001) 7.3 K/UL RBC (test code = 1002) 4.98 M/UL HEMOGLOBIN (test code = 1003) 14.1 G/DL HEMATOCRIT (test code = 1004) 43.5 % MCV (test code = 1005) 87.3 fL MCH (test code = 1006) 28.3 PG MCHC (test code = 1007) 32.4 G/DL RDW (test code = 1038) 13.6 % NEUTROPHILS (test code = 1008) 66 % LYMPHOCYTES (test code = 1010) 24 % MONOCYTES (test code = 1011) 7 % EOSINOPHILS (test code = 1012) 2 % BASOPHILS (test code = 1013) % PLATELET COUNT (test code = 1015) 294 K/UL CBC W/AUTO [id number] 00:00:00* Test Item Value Reference Range Interpretation Comme nts WBC (test code = 1001) 7.3 K/UL RBC (test code = 1002) 4.98 M/UL HEMOGLOBIN (test code = 1003) 14.1 G/DL HEMATOCRIT (test code = 1004) 43.5 % MCV (test code = 1005) 87.3 fL MCH (test code = 1006) 28.3 PG MCHC (test code = 1007) 32.4 G/DL RDW (test code = 1038) 13.6 % NEUTROPHILS (test code = 1008) 66 % LYMPHOCYTES (test code = 1010) 24 % MONOCYTES (test code = 1011) 7 % EOSINOPHILS (test code = 1012) 2 % BASOPHILS (test code = 1013) % PLATELET COUNT (test code = 1015) 294 K/UL CBC W/AUTO [id number] 00:00:00* Test Item Value Reference Range Interpretation Comme nts WBC (test code = 1001) 7.3 K/UL RBC (test code = 1002) 4.98 M/UL HEMOGLOBIN (test code = 1003) 14.1 G/DL HEMATOCRIT (test code = 1004) 43.5 % MCV (test code = 1005) 87.3 fL MCH (test code = 1006) 28.3 PG MCHC (test code = 1007) 32.4 G/DL RDW (test code = 1038) 13.6 % NEUTROPHILS (test code = 1008) 66 % LYMPHOCYTES (test code = 1010) 24 % MONOCYTES (test code = 1011) 7 % EOSINOPHILS (test code = 1012) 2 % BASOPHILS (test code = 1013) % PLATELET COUNT (test code = 1015) 294 K/UL HEMOGLOBIN [id number] 00:00:00* Test Item Value Reference Range Interpretation Comme nts HEMOGLOBIN A1c (test code = 75094) 5.9 % HEMOGLOBIN [id number] 00:00:00* Test Item Value Reference Range Interpretation Comme nts HEMOGLOBIN A1c (test code = 99595) 5.9 % HEMOGLOBIN [id number] 00:00:00* Test Item Value Reference Range Interpretation Comme nts HEMOGLOBIN A1c (test code = 35254) 5.9 % [id number] 00:00:00* Test Item Value Reference Range Interpretation Comme nts TSH (test code = 2821) 3.5 UIU/ML [id number] 00:00:00* Test Item Value Reference Range Interpretation Comme nts TSH (test code = 2821) 3.5 UIU/ML [id number] 00:00:00* Test Item Value Reference Range Interpretation Comme nts TSH (test code = 2821) 3.5 UIU/ML COMPREHENSIVE METABOLIC [id number] 00:00:00* Test Item Value Reference Range Interpretation Comme nts GLUCOSE (test code = 2217) 90 MG/DL BUN (test code = 2208) 9 MG/DL CREATININE (test code = 2214) 0.67 MG/DL eGFR AMER. (test cod e = 68889) 119 ML/MIN/1.73 eGFR NON- AMER. (test code = 05970) 102 ML/MIN/1.73 CALCULATED BUN/CREAT (test code = 2235) 13 RATIO SODIUM (test code = 2231) 136 MEQ/L POTASSIUM (test code = 2228) 4.9 MEQ/L CHLORIDE (test code = 2215) 100 MEQ/L CARBON DIOXIDE (test code = 2206) 22 MEQ/L CALCIUM (test code = 2209) 9.1 MG/DL PROTEIN, TOTAL (test code = 2229) 7.4 G/DL ALBUMIN (test code = 2201) 4.0 G/DL CALCULATED GLOBULIN (test code = 2240) 3.4 G/DL CALCULATED A/G RATIO (test code = 2234) 1.2 RATIO BILIRUBIN, TOTAL (test code = 2207) 0.4 MG/DL ALKALINE PHOSPHATASE (test code = 2204) 97 U/L SGOT (AST) (test code = 2218) 35 U/L SGPT (ALT) (test code = 2219) 41 U/L THYROID II PROFILE (T3U, T4, T7, TSH)2015-08-14 00:00:00* Test Item Value Reference Range Interpretation Comme nts T3 UPTAKE (test code = 2817) 25.3 % T4 (THYROXINE) (test code = 2819) 10.9 UG/DL CALCULATED T7 (FTI) (test co de = 2820) 2.76 TSH (test code = 2821) 3.1 UIU/ML THYROID II PROFILE (T3U, T4, T7, TSH)2015-08-14 00:00:00* Test Item Value Reference Range Interpretation Comme nts T3 UPTAKE (test code = 2817) 25.3 % T4 (THYROXINE) (test code = 2819) 10.9 UG/DL CALCULATED T7 (FTI) (test co de = 2820) 2.76 TSH (test code = 2821) 3.1 UIU/ML THYROID II PROFILE (T3U, T4, T7, TSH)2015-08-14 00:00:00* Test Item Value Reference Range Interpretation Comme nts T3 UPTAKE (test code = 2817) 25.3 % T4 (THYROXINE) (test code = 2819) 10.9 UG/DL CALCULATED T7 (FTI) (test co de = 2820) 2.76 TSH (test code = 2821) 3.1 UIU/ML THYROID II PROFILE (T3U, T4, T7, TSH)2015-08-14 00:00:00* Test Item Value Reference Range Interpretation Comme nts T3 UPTAKE (test code = 2817) 25.3 % T4 (THYROXINE) (test code = 2819) 10.9 UG/DL CALCULATED T7 (FTI) (test co de = 2820) 2.76 TSH (test code = 2821) 3.1 UIU/ML THYROID II PROFILE (T3U, T4, T7, TSH)2015-08-14 00:00:00* Test Item Value Reference Range Interpretation Comme nts T3 UPTAKE (test code = 2817) 25.3 % T4 (THYROXINE) (test code = 2819) 10.9 UG/DL CALCULATED T7 (FTI) (test co de = 2820) 2.76 TSH (test code = 2821) 3.1 UIU/ML THYROID II PROFILE (T3U, T4, T7, TSH)2015-08-14 00:00:00* Test Item Value Reference Range Interpretation Comme nts T3 UPTAKE (test code = 2817) 25.3 % T4 (THYROXINE) (test code = 2819) 10.9 UG/DL CALCULATED T7 (FTI) (test co de = 2820) 2.76 TSH (test code = 2821) 3.1 UIU/ML THYROID II PROFILE (T3U, T4, T7, TSH)2015-08-14 00:00:00* Test Item Value Reference Range Interpretation Comme nts T3 UPTAKE (test code = 2817) 25.3 % T4 (THYROXINE) (test code = 2819) 10.9 UG/DL CALCULATED T7 (FTI) (test co de = 2820) 2.76 TSH (test code = 2821) 3.1 UIU/ML THYROID II PROFILE (T3U, T4, T7, TSH)2015-06-30 00:00:00* Test Item Value Reference Range Interpretation Comme nts T3 UPTAKE (test code = 2817) 24.0 % T4 (THYROXINE) (test code = 2819) 7.4 UG/DL CALCULATED T7 (FTI) (test co de = 2820) 1.78 TSH (test code = 2821) 18.5 UIU/ML THYROID II PROFILE (T3U, T4, T7, TSH)2015-06-30 00:00:00* Test Item Value Reference Range Interpretation Comme nts T3 UPTAKE (test code = 2817) 24.0 % T4 (THYROXINE) (test code = 2819) 7.4 UG/DL CALCULATED T7 (FTI) (test co de = 2820) 1.78 TSH (test code = 2821) 18.5 UIU/ML LIPID [id number] 00:00:00* Test Item Value Reference Range Interpretation Comme nts CHOLESTEROL (test code = 2210) 236 MG/DL TRIGLYCERIDES (test code = 2232) 364 MG/DL HDL CHOLESTEROL (test code = 2220) 34 MG/DL CALCULATED LDL CHOL (test co de = 2237) 129 MG/DL RISK RATIO LDL/HDL (test cod e = 2238) 3.80 RATIO THYROID II PROFILE (T3U, T4, T7, TSH)2015-06-30 00:00:00* Test Item Value Reference Range Interpretation Comme nts T3 UPTAKE (test code = 2817) 24.0 % T4 (THYROXINE) (test code = 2819) 7.4 UG/DL CALCULATED T7 (FTI) (test co de = 2820) 1.78 TSH (test code = 2821) 18.5 UIU/ML LIPID [id number] 00:00:00* Test Item Value Reference Range Interpretation Comme nts CHOLESTEROL (test code = 2210) 236 MG/DL TRIGLYCERIDES (test code = 2232) 364 MG/DL HDL CHOLESTEROL (test code = 2220) 34 MG/DL CALCULATED LDL CHOL (test co de = 2237) 129 MG/DL RISK RATIO LDL/HDL (test cod e = 2238) 3.80 RATIO LIPID [id number] 00:00:00* Test Item Value Reference Range Interpretation Comme nts CHOLESTEROL (test code = 2210) 236 MG/DL TRIGLYCERIDES (test code = 2232) 364 MG/DL HDL CHOLESTEROL (test code = 2220) 34 MG/DL CALCULATED LDL CHOL (test co de = 2237) 129 MG/DL RISK RATIO LDL/HDL (test cod e = 2238) 3.80 RATIO THYROID II PROFILE (T3U, T4, T7, TSH)2015-06-30 00:00:00* Test Item Value Reference Range Interpretation Comme nts T3 UPTAKE (test code = 2817) 24.0 % T4 (THYROXINE) (test code = 2819) 7.4 UG/DL CALCULATED T7 (FTI) (test co de = 2820) 1.78 TSH (test code = 2821) 18.5 UIU/ML THYROID II PROFILE (T3U, T4, T7, TSH)2015-06-30 00:00:00* Test Item Value Reference Range Interpretation Comme nts T3 UPTAKE (test code = 2817) 24.0 % T4 (THYROXINE) (test code = 2819) 7.4 UG/DL CALCULATED T7 (FTI) (test co de = 2820) 1.78 TSH (test code = 2821) 18.5 UIU/ML LIPID [id number] 00:00:00* Test Item Value Reference Range Interpretation Comme nts CHOLESTEROL (test code = 2210) 236 MG/DL TRIGLYCERIDES (test code = 2232) 364 MG/DL HDL CHOLESTEROL (test code = 2220) 34 MG/DL CALCULATED LDL CHOL (test co de = 2237) 129 MG/DL RISK RATIO LDL/HDL (test cod e = 2238) 3.80 RATIO LIPID [id number] 00:00:00* Test Item Value Reference Range Interpretation Comme nts CHOLESTEROL (test code = 2210) 236 MG/DL TRIGLYCERIDES (test code = 2232) 364 MG/DL HDL CHOLESTEROL (test code = 2220) 34 MG/DL CALCULATED LDL CHOL (test co de = 2237) 129 MG/DL RISK RATIO LDL/HDL (test cod e = 2238) 3.80 RATIO THYROID II PROFILE (T3U, T4, T7, TSH)2015-06-30 00:00:00* Test Item Value Reference Range Interpretation Comme nts T3 UPTAKE (test code = 2817) 24.0 % T4 (THYROXINE) (test code = 2819) 7.4 UG/DL CALCULATED T7 (FTI) (test co de = 2820) 1.78 TSH (test code = 2821) 18.5 UIU/ML THYROID II PROFILE (T3U, T4, T7, TSH)2015-06-30 00:00:00* Test Item Value Reference Range Interpretation Comme nts T3 UPTAKE (test code = 2817) 24.0 % T4 (THYROXINE) (test code = 2819) 7.4 UG/DL CALCULATED T7 (FTI) (test co de = 2820) 1.78 TSH (test code = 2821) 18.5 UIU/ML LIPID [id number] 00:00:00* Test Item Value Reference Range Interpretation Comme nts CHOLESTEROL (test code = 2210) 236 MG/DL TRIGLYCERIDES (test code = 2232) 364 MG/DL HDL CHOLESTEROL (test code = 2220) 34 MG/DL CALCULATED LDL CHOL (test co de = 2237) 129 MG/DL RISK RATIO LDL/HDL (test cod e = 2238) 3.80 RATIO LIPID [id number] 00:00:00* Test Item Value Reference Range Interpretation Comme nts CHOLESTEROL (test code = 2210) 236 MG/DL TRIGLYCERIDES (test code = 2232) 364 MG/DL HDL CHOLESTEROL (test code = 2220) 34 MG/DL CALCULATED LDL CHOL (test co de = 2237) 129 MG/DL RISK RATIO LDL/HDL (test cod e = 2238) 3.80 RATIO
[2024-04-13] MEDS ORDERED: ONDANSETRON 4 MG/2 ML VIAL ONE (19:27)
[2024-04-13] MEDS ORDERED: NA CHLORIDE 0.9% 1,000 ML ONE (19:27)
[2024-04-13] MEDS ORDERED: MORPHINE 4 MG/ML SYR ONE (19:27)
[2024-04-13 19:40] LABS: Specific Gravity 1.007 (1.005-1.030); Urine Bilirubin NEGATIVE (Negative); Urine Blood Negative (Negative); Urine Clarity Clear (Clear); Urine Color Colorless (Yellow); Urine Glucose NEGATIVE (Negative); Urine Ketones NEGATIVE (Negative); Urine Microscopic Reflex YN NO UMIC; Urine Nitrite NEGATIVE (Negative); Urine Protein NEGATIVE (Negative); Urine Urobilinogen Normal (Normal); Urine pH 5.5 (5.0-7.0)
[2024-04-13 19:45] LABS: Absolute Eosinophils 0.2 K/uL (0-0.5); Absolute Lymphocytes (CBC) 1.7 K/uL (0.7-4.9); Absolute Monocytes 0.4 K/uL (0.1-1.3); Absolute Neutrophil 3.5 K/uL (1.8-8.0); Basophils % 0.6 % (0-1.3); Eosinophils % 2.7 % (0-4.4); Hematocrit 42.7 % (36.0-45.0); Hemoglobin 14.2 g/dL (12.0-15.0); Lymphocytes % 28.4 % (15.3-44.8); MCH 28.4 pg (27.0-35.0); MCHC 33.4 g/dL (32.0-36.0); MCV 84.9 fL (80-100); MPV 8.5 fL (7.6-11.3); Monocytes % 7.7 % (3.3-12.3); Neutrophils % 60.6 % (41.7-73.7); Nucleated Red Blood Cells % 0.2 % (0-0); Platelets 316 thou/uL (152-406); RBC Red Blood Cell Count 5.02 M/uL (3.86-4.86); Red Cell Distribution Width 13.9 % (12.1-15.2)
[2024-04-13 19:50] LABS: Albumin 3.8 g/dL (3.4-5.0); Albumin/Globulin Ratio 0.9 (1.1-1.8); Anion Gap 9.3 mEq/L (5.0-15.0); Bilirubin Total 0.3 mg/dL (0.2-1.0); Globulin 4.3 g/dL (2.3-3.5); Potassium 4.3 mEq/L (3.5-5.1); Protein, Total 8.1 g/dL (6.4-8.2)
--- NOTE | 2024-04-13 20:59 | RAD REPORT ---
EXAM DESCRIPTION: CT - Abdomen Pelvis W Contrast - 04/13/2024 8:35 pm CLINICAL HISTORY: Abdominal pain COMPARISON: 2021 TECHNIQUE: Computed axial tomography of the abdomen pelvis was obtained. 100 cc Isovue-300 was admin istered intravenously. Oral contrast was not requested which limits evaluation of bowel and appendix All CT scans are performed using dose optimization technique as appropriate and may include automated exposure control or mA/KV adjustment according to patient size. FINDINGS: Fatty liver. Cholecystectomy Duodenal diverticulum Left renal cyst. Spleen, adrenals, pancreas and right kidney are unremarkable There is no evidence of diverticulitis. Normal appendix Hysterectomy. No adnexal mass. Small left inguinal hernia fat IMPRESSION: No acute abnormality is displayed.
--- NOTE | 2024-04-13 21:13 | EDPHYS ---
Physician Documentation [facility] Name: Dahiana Palafox Age: 58 yrs Sex: Female : 1965 Arrival Date: 04/13/2024 Time: 18:55 Bed 18 Private MD: ED Physician Kaleb Flanagan HPI: 04/13 21:11 This 58 yrs old Female presents to ER via Ambulatory with complaints of kb Abdominal Pain - Lower. 21:11 Pt is a 58 year old female who presents for right lower quadrant pain that started at kb 0400. States she had diarrhea yesterday, nausea last night and vomited once today. Denies fever. . Historical: - Allergies: 19:03 Codeine; as6 - PMHx: 19:03 acid reflux; gastric ulcers; GERD; Hyperlipidemia; Hypertension; Thyroid problem; as6 - PSHx: 19:03 Total abdominal hysterectomy; skull (Total abdominal hysterectomy); Cholecystectomy; as6 Ligation of fallopian tube; - Immunization history:: Adult Immunizations up to date. - Infectious Disease History:: Denies. - Social history:: Smoking status: Reported history of juuling and/or vaping. ROS: 21:10 Constitutional: As per HPI kb Exam: 21:10 Constitutional: This is a well developed, well nourished patient who is awake, alert, kb and in no acute distress. Head/Face: Normocephalic, atraumatic. ENT: Moist Mucous membranes Cardiovascular: Regular rate Respiratory: Respirations even and unlabored. No increased work of breathing. Talking in full sentences Skin: Warm, dry with normal turgor. Normal color. MS/ Extremity: Pulses equal, no cyanosis. Neurovascular intact. Full, normal range of motion. Neuro: Awake and alert, GCS 15, oriented to person, place, time, and situation. Moves all extremities. Normal gait. 21:10 Abdomen/GI: Inspection: abdomen appears normal, Bowel sounds: normal, Palpation: soft, in all quadrants, moderate abdominal tenderness, in the right lower quadrant, Vital Signs: 19:01 BP 174 / 82; Pulse 93; Resp 18 S; Temp 97.7(TE); Pulse Ox 99% on R/A; Weight 66.22 kg as6 (R); Height 5 ft. 1 in. (R); Pain 9/10; 19:11 BP 140 / 86; Pulse 90; Resp 18 S; Pulse Ox 98% on R/A; jw7 20:00 BP 138 / 61; Pulse 70; Resp 17 S; Pulse Ox 99% on R/A; jw7 21:00 BP 135 / 65; Pulse 68; Resp 17 S; Pulse Ox 98% on R/A; jw7 22:00 BP 142 / 64; Pulse 72; Resp 18 S; Pulse Ox 97% on R/A; jw7 19:01 Body Mass Index 27.59 (66.22 kg, 154.94 cm) as6 19:01 Pain Scale: Adult as6 MDM: 19:00 Patient medically screened. kb 21:11 Differential diagnosis: appendicitis, non-specific abd pain, Pyelonephritis, kb Ureterolithiasis, urinary tract infection. Data reviewed: vital signs, nurses notes. Counseling: I had a detailed discussion with the patient and/or guardian regarding the historical points, exam findings, and any diagnostic results supporting the discharge/admit diagnosis, lab results, radiology results, the need for outpatient follow up, a family practitioner, to return to the emergency department if symptoms worsen or persist or if there are any questions or concerns that arise at home. 04/13 19:11 Order name: CBC with Diff; Complete Time: 20:19 kb 04/13 19:11 Order name: CMP; Complete Time: 20:19 kb 04/13 19:11 Order name: Lipase; Complete Time: 20:19 kb 04/13 19:11 Order name: Urinalysis w/ reflexes; Complete Time: 19:41 kb 04/13 19:11 Order name: CT Abd/Pelvis - IV Contrast Only; Complete Time: 21:07 kb 04/13 19:11 Order name: IV Saline Lock; Complete Time: 19:47 kb 04/13 19:11 Order name: Labs collected and sent; Complete Time: 19:47 kb Administered Medications: 19:47 Drug: NS 0.9% IV 1000 ml IV at 1000 ml once Route: IV; Rate: 1000 ml; Site: left [facility] antecubital; 21:00 Follow up: Response: No adverse reaction; IV Status: Completed infusion; IV Intake: jw7 1000ml 19:47 Drug: Ondansetron IVP 4 mg IVP once; over 2 minutes Route: IVP; Site: left antecubital; [facility] 21:00 Follow up: Response: No adverse reaction; Marked relief of symptoms; Nausea is decreasedjw7 19:47 Drug: morphine IVP or IV 4 mg IVP once over 4 mins Route: IVP; Infused Over: 4 mins; jw7 Site: left antecubital; 21:00 Follow up: Response: No adverse reaction; Marked relief of symptoms; Pain is decreased jw7 Disposition Summary: 04/13/24 21:13 Discharge Ordered Notes: Location: Home kb Condition: Stable kb Diagnosis - Lower abdominal pain, unspecified kb Followup: kb - With: Emergency Department - When: As needed - Reason: Worsening of condition Followup: kb - With: Private Physician - When: 2 - 3 days - Reason: Recheck today's complaints, Continuance of care, Re-evaluation by your physician Discharge Instructions: - Discharge Summary Sheet kb - Abdominal Pain, Adult, [id number] kb Forms: - Medication Reconciliation Form kb - Antibiotic Education kb - Prescription Opioid Use kb - Patient Portal Instructions kb - Leadership Thank You Letter kb - Work release form jw7 Prescriptions: - Zofran 4 mg Oral tablet - take 1 tablet ORAL route every 6 hours As needed; 12 tablet; Refills: 0, kb Product Selection Permitted - dicyclomine 20 mg Oral tablet - take 1 tablet ORAL route 4 times per day As needed; 12 tablet; Refills: 0, kb Product Selection Permitted Signatures: Dispatcher [employer] Sarah Guevara, OLEG BARRP-Huseyin Brooks, RN RN as6 Madeline Mejia RN RN jw7
--- NOTE | 2024-04-13 21:13 | ER ---
Nurse's Notes [facility] Name: Dahiana Palafox Age: 58 yrs Sex: Female : 1965 Arrival Date: 04/13/2024 Time: 18:55 Bed 18 Private MD: Diagnosis: Lower abdominal pain, unspecified Presentation: 04/13 19:01 Chief complaint: Patient states: RLQ pain that has been worsening all day. Coronavirus as6 screen: At this time, the client does not indicate any symptoms associated with coronavirus-19. Ebola Screen: No symptoms or risks identified at this time. Initial Sepsis Screen: Does the patient meet any 2 criteria? No. Patient's initial sepsis screen is negative. Does the patient have a suspected source of infection? No. Patient's initial sepsis screen is negative. Risk Assessment: Do you want to hurt yourself or someone else? Patient reports no desire to harm self or others. Onset of symptoms was April 12, 2024. 19:01 Method Of Arrival: Ambulatory as6 19:01 Acuity: VIVIANA 3 as6 Historical: - Allergies: 19:03 Codeine; as6 - PMHx: 19:03 acid reflux; gastric ulcers; GERD; Hyperlipidemia; Hypertension; Thyroid problem; as6 - PSHx: 19:03 Total abdominal hysterectomy; skull (Total abdominal hysterectomy); Cholecystectomy; as6 Ligation of fallopian tube; - Immunization history:: Adult Immunizations up to date. - Infectious Disease History:: Denies. - Social history:: Smoking status: Reported history of juuling and/or vaping. Screenin:15 [facility] ED Fall Risk Assessment (Adult) History of falling in the last 3 months, jw7 including since admission No falls in past 3 months (0 pts) Confusion or Disorientation No (0 pts) Intoxicated or Sedated No (0 pts) Impaired Gait No (0 pts) Mobility Assist Device Used No (0 pt) Altered Elimination No (0 pt) Score/Fall Risk Level 0 - 2 = Low Risk Oriented to surroundings, Maintained a safe environment, Educated pt \T\ family on fall prevention, incl call for assistance when getting out of bed. Abuse screen: Denies threats or abuse. Denies injuries from another. Nutritional screening: No deficits noted. Tuberculosis screening: No symptoms or risk factors identified. Assessment: 19:15 General: Appears in no apparent distress. uncomfortable, Behavior is calm, cooperative. jw7 19:15 Pain: Complains of pain in right lower quadrant Pain does not radiate. Pain currently jw7 is 8 out of 10 on a pain scale. Quality of pain is described as dull, sharp, Pain began suddenly, Is continuous. Neuro: Level of Consciousness is awake, alert, obeys commands, Oriented to person, place, time, situation. Cardiovascular: Heart tones S1 S2 present Capillary refill < 3 seconds Clubbing of nail beds is absent JVD is absent Patient's skin is warm and dry. Respiratory: Airway is patent Trachea midline Respiratory effort is even, unlabored, Respiratory pattern is regular, symmetrical, Breath sounds are clear bilaterally. GI: Abdomen is flat, non-distended, Bowel sounds present X 4 quads. Abd is soft Abdomen is tender to palpation in right lower quadrant Guarding noted Reports nausea. : No deficits noted. No signs and/or symptoms were reported regarding the genitourinary system. EENT: No deficits noted. No signs and/or symptoms were reported regarding the EENT system. Derm: Skin is intact, is healthy with good turgor, Skin is dry, Skin is normal, Skin temperature is warm. Musculoskeletal: Circulation, motion, and sensation intact. Range of motion: intact in all extremities. 20:20 Reassessment: Patient appears in no apparent distress at this time. Patient and/or jw7 family updated on plan of care and expected duration. Pain level reassessed. Patient is alert, oriented x 3, equal unlabored respirations, skin warm/dry/pink. Patient states symptoms have improved. 21:30 Reassessment: Patient appears in no apparent distress at this time. No changes from jw7 previously documented assessment. Patient and/or family updated on plan of care and expected duration. Pain level reassessed. Patient is alert, oriented x 3, equal unlabored respirations, skin warm/dry/pink. 22:15 Reassessment: Patient appears in no apparent distress at this time. No changes from jw7 previously documented assessment. Patient and/or family updated on plan of care and expected duration. Pain level reassessed. Patient is alert, oriented x 3, equal unlabored respirations, skin warm/dry/pink. Vital Signs: 19:01 BP 174 / 82; Pulse 93; Resp 18 S; Temp 97.7(TE); Pulse Ox 99% on R/A; Weight 66.22 kg as6 (R); Height 5 ft. 1 in. (R); Pain 9/10; 19:11 BP 140 / 86; Pulse 90; Resp 18 S; Pulse Ox 98% on R/A; jw7 20:00 BP 138 / 61; Pulse 70; Resp 17 S; Pulse Ox 99% on R/A; jw7 21:00 BP 135 / 65; Pulse 68; Resp 17 S; Pulse Ox 98% on R/A; jw7 22:00 BP 142 / 64; Pulse 72; Resp 18 S; Pulse Ox 97% on R/A; jw7 19:01 Body Mass Index 27.59 (66.22 kg, 154.94 cm) as6 19:01 Pain Scale: Adult as6 ED Course: 18:59 Patient arrived in ED. ra3 19:00 [facility] Reyn[facility]-C [facility] kb 19:00 Kaleb Flanagan MD is Attending Physician. kb 19:03 Triage completed. as6 19:03 Arm band placed on. as6 19:06 aMdeline Mejia, NOEL is Primary Nurse. jw7 19:15 Patient has correct armband on for positive identification. Bed in low position. Call 7 light in reach. Provided Education on: Use of Call Light. 19:25 Initial lab(s) drawn, by me, sent to lab. Inserted saline lock: 20 gauge in left jw7 antecubital area, using aseptic technique. Blood collected. 19:29 Urinalysis w/ reflexes Sent. vk 19:29 Urine collected: clean catch specimen, clear. vk 20:36 CT Abd/Pelvis - IV Contrast Only In Process Unspecified. EDMS 22:20 No provider procedures requiring assistance completed. IV discontinued, intact, jw7 bleeding controlled, No redness/swelling at site. Pressure dressing applied. Administered Medications: 19:47 Drug: NS 0.9% IV 1000 ml IV at 1000 ml once Route: IV; Rate: 1000 ml; [facility]; 21:00 Follow up: Response: No adverse reaction; IV Status: Completed infusion; IV Intake: jw7 1000ml 19:47 Drug: Ondansetron IVP 4 mg IVP once; over 2 minutes Route: IVP; Site: left antecubital; jw7 21:00 Follow up: Response: No adverse reaction; Marked relief of symptoms; Nausea is decreasedjw7 19:47 Drug: morphine IVP or IV 4 mg IVP once over 4 mins Route: IVP; Infused Over: 4 mins; jw7 Site: left antecubital; 21:00 Follow up: Response: No adverse reaction; Marked relief of symptoms; Pain is decreased jw7 Medication: 22:20 VIS not applicable for this client. jw7 Intake: 21:00 IV: 1000ml; Total: 1000ml. jw7 Outcome: 21:13 Discharge ordered by MD. duran 22:20 Discharged to home ambulatory, jw7 22:20 Condition: stable 22:20 Discharge instructions given to patient, Instructed on discharge instructions, follow up and referral plans. medication usage, Demonstrated understanding of instructions, follow-up care, medications, Prescriptions given X 2, 22:20 Patient left the ED. jw7 Signatures: Dispatcher [employer] EDMS Sarah Reyna, [employer]-C [employer]-Huseyin Brooks RN RN as6 Madeline Mejia RN RN jw7 Kelsey Santiago ra3 Fallon Melton Corrections: (The following items were deleted from the chart) 19:30 19:30 Urine collected: eugene knight 22:33 22:32 Patient left the ED. jw7 jw7
[2024-04-13 23:28] VITALS: BP 142/64; TEMP 97.7; O2SAT 97
== END 2024-04-13 22:32 | disposition home or self-care (01) ==
LOC: ER 18:55
DX: R10.31 Right lower quadrant pain (principal); Z88.5 Allergy status to narcotic agent
CPT/HCPCS: 85025; 36415; 81003; 83690; 80053; 74177; Q9967; J2405; J7030